=== PATIENT | male | born 1960 | race Caucasian/White ===

== ENCOUNTER 2022-07-18 12:43 | Emergency (ER) | payer OTHER, SELFPAY ==
[2022-07-18 12:57] VITALS: BP 158/78; PULSE 89; RESP 18; TEMP 35.9; O2SAT 98; BMI 23.2
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
--- NOTE | 2022-07-18 13:23 | CRLHL7_ITS ---
For Patients: As a result of the Century Cures Act, medical imaging exams and procedure reports are released immediately into your electronic medical record. You may view this report before your referring provider. If you have questions, please contact your health care provider. Indication: Back Pain Comparison: None available. Technique: AP, lateral, and sunrise views thoracic spine were obtained. Findings: The thoracic vertebral body heights are grossly maintained with somewhat age-indeterminate mild superior endplate deformities of superior mid thoracic vertebral bodies. There is mild straightening of the normal thoracic kyphosis without evidence of significant spondylolisthesis. There is mild dextroscoliotic deformity of the AP alignment. The soft tissues are unremarkable. Impression: Degenerative changes of the thoracic spine with somewhat chronic and/or age indeterminate minimal endplate deformities of mid thoracic vertebral bodies. If there remains persisting clinical concern follow-up with MRI for improved characterization of subtle marrow edema. No evidence of large, displaced fracture. Dictated by Jake Estrada MD @ 07/18/2022 1:58:49 PM (Electronically Signed)
--- NOTE | 2022-07-18 13:23 | CRLHL7_ITS ---
For Patients: As a result of the Century Cures Act, medical imaging exams and procedure reports are released immediately into your electronic medical record. You may view this report before your referring provider. If you have questions, please contact your health care provider. Indication: Back pain Comparison: None available. Technique: PA and lateral views of the chest Findings: There is hyperinflation and chronic interstitial change without dense consolidation, effusion or pneumothorax. There is mild pulmonary vascular congestion. The cardiomediastinal silhouette is within normal limits. The bony thorax is grossly intact. Impression: Hyperinflation and chronic interstitial changes with mild pulmonary vascular congestion. Dictated by Jake Estrada MD @ 07/18/2022 2:07:21 PM (Electronically Signed)
--- OUTSIDE RECORDS SUMMARY | 2022-07-18 13:36 | XMS_ITS | Clinical Summary ---
:1960 Author Organization [employer] [facility] [place] [address] Care Team Providers Name Role Phone Pcp, No Primary Care Provider Unavailable Allergies No known active allergies Medications No known medications Active Problems Problem Noted Date Elevated blood pressure 09/22/2014 Immunizations Name Administration Dates Next Due Td (Age >=7 Years) 04/28/2003 Tdap 02/12/2011 Family History Medical History Relation Name Comments [facility] Mother Relation Name Status Comments Mother Social History Tobacco Use Types Packs/Day Years Used Date Never Smoker Cigars Smokeless Tobacco: Current User Chew Tobacco Cessation: Ready to Quit: No; Co unseling Given: Yes Comments: Patient declined information Alcohol Use Standard Drinks/Week Comments No 0 (1 standard drink = 0.6 oz pure alcoho l) Seldom Alcohol Habits Answer Date Recorded How often do you have a drink containing alcohol? Not asked How many drinks containing alcohol do you have on a typical Not asked day when you are drinking? How often do you have six or more drinks on one occasion? No t asked Comment: Seldom 03/27/2015 Sex Assigned at Date Recorded Not on file Obstetrics History Last Filed Vital Signs Vital Sign Reading Time Taken Comments Blood Pressure 160/84 03/27/2015 3:18 PM CDT Pulse 80 03/27/2015 3:18 PM CDT Temperature 36.7 ??C (98 ??F) 03/27/2015 3:01 PM CDT Respiratory Rate - - Oxygen Saturation - - Inhaled Oxygen Concentration - - Weight 76.9 kg (169 lb 9.6 oz) 03/27/2015 3:01 PM CDT Height - - Body Mass Index - - Plan of Treatment Health Maintenance Due Date Last Done Comments COVID-19 vaccine series (#1) 06/21/1960 Depression screening for age 12+ 1971 BMI (ht and wt on same day) for age 18+ 12/20/1977 Hepatitis C screening for age 18-79 12/20/1977 Colonoscopy through age 75 12/20/2004 Lipids for age 45-75 12/20/2004 Zoster (shingles) series for age 50+ (1 of 12/20/2009 2) Tetanus booster 02/12/2021 02/12/2011, 04/28/2003 Influenza for age 50-64 05/08/2022 Tdap Completed 02/12/2011 Results Not on filefrom Last 3 Months Care Teams Director Wholesale Relationship Specialty Start Date End Date Pcp, No PCP - General 12/19/16 .
[2022-07-18 15:18] VITALS: BP 158/78; PULSE 89; RESP 18; TEMP 35.9
== END 2022-07-18 15:19 | disposition home or self-care (01) ==
PROVIDERS: Emergency Provider Family Medicine
DX: M54.6 Pain in thoracic spine (principal)
CPT/HCPCS: 71046; 72070; 99283

== ENCOUNTER 2022-07-21 18:13 | Outpatient (CLI) | payer OTHER, SELFPAY ==
--- OUTSIDE RECORDS SUMMARY | 2022-07-21 18:16 | XMS_ITS | Clinical Summary ---
:1960 Author Organization [employer] [facility] [place] [address] Care Team Providers Name Role Phone Pcp, No Primary Care Provider Unavailable Allergies No known active allergies Medications No known medications Active Problems Problem Noted Date Elevated blood pressure 09/22/2014 Immunizations Name Administration Dates Next Due Td (Age >=7 Years) 04/28/2003 Tdap 02/12/2011 Family History Medical History Relation Name Comments [facility] Mother Relation Name Status Comments Mother Social [...] on filefrom Last 3 Months Care Teams Main [employer] Relationship Specialty Start Date End Date Pcp, No PCP - General 12/19/16 .
[2022-07-21 21:29] LABS: Albumin* 4.7 g/dL (3.3-5.0); Chloride* 95 mmol/L (96-114); Sodium* 130 mmol/L (135-149)
[2022-07-21 21:30] LABS: Potassium* 5.1 mmol/L (3.6-5.1)
[2022-07-21 21:32] LABS: Carbon Dioxide* 20 mmol/L (20-32); Creatinine* 10.8 mg/dL (0.5-1.5); Estimated Glomerular Filt Rate 5 ml/min
[2022-07-21 21:33] LABS: Alanine Aminotransferase* 24 U/L (4-50); Alkaline Phosphatase* 108 U/L (40-150); Aspartate Amino Transferase* 19 U/L (12-35); Blood Urea Nitrogen* 73 mg/dL (7-30); Calcium* 11.6 mg/dL (8.4-10.6); Glucose* 103 mg/dL (60-115); Total Protein* 8.2 g/dL (6.0-8.3)
[2022-07-21 21:36] LABS: C Reactive Protein* < 0.5 mg/dL (0.5-1.0)
== END 2022-07-21 18:14 | disposition home or self-care (01) ==
PROVIDERS: Visit Provider Family Medicine
DX: Z00.00 Encounter for general adult medical examination without abnormal findings (principal); M54.6 Pain in thoracic spine; M79.10 Myalgia, unspecified site
CPT/HCPCS: 80053; 86140

== ENCOUNTER 2022-07-21 19:17 | Inpatient (IN) | payer OTHER, SELFPAY ==
[2022-07-21 19:42] VITALS: BP 193/98; PULSE 105; RESP 18; TEMP 36.6; O2SAT 99; BMI 23.5
[2022-07-21 20:53] VITALS: O2SAT 96
--- OUTSIDE RECORDS SUMMARY | 2022-07-21 20:55 | XMS_ITS | Clinical Summary ---
:1960 Author Organization [employer] [facility] [place] [address] Care Team Providers Name Role Phone Pcp, No Primary Care Provider Unavailable Allergies No known active allergies Medications No known medications Active Problems Problem Noted Date Elevated blood pressure 09/22/2014 Immunizations Name Administration Dates Next Due Td (Age >=7 Years) 04/28/2003 Tdap 02/12/2011 Family History Medical History Relation Name Comments [facility] Mother Relation Name Status Comments Mother [...] on filefrom Last 3 Months Care Teams Metabolic Specialist Relationship Specialty Start Date End Date Pcp, No PCP - General 12/19/16 .
[2022-07-21 21:06] VITALS: BP 178/104; RESP 16; O2SAT 96
[2022-07-21 21:17] LABS: Basophils Absolute Auto 0.03 K/uL (0.00-0.30); Basophils Percent Auto 0.5 % (0.0-3.0); Eosinophils Absolute Auto 0.07 K/uL (0.00-0.50); Eosinophils Percent Auto 1.2 % (0.0-7.0); Hematocrit 21.2 % (37.0-53.0); Immature Granulocytes Abs Auto 0.01 K/uL (0.00-0.30); Immature Granulocytes Pct Auto 0.2 %; Lymphocytes Percent Auto 12.7 % (20-44); Mean Corpuscular HGB Conc 35 gm/dL (32-36); Mean Corpuscular Hemoglobin 35 pg (26-34); Mean Corpuscular Volume 100 fL (80-100); Monocytes Percent Auto 7.5 % (0.0-11.0); Neutrophils Percent Auto 77.9 % (42.0-72.0); Platelet Count* 223 K/uL (140-440); RDW Coefficient of Variation % 12.3 % (11.5-15.5); Red Blood Count 2.12 m/uL (4.30-5.90); White Blood Count* 5.74 K/uL (4.50-11.00)
[2022-07-21 21:26] LABS: Hemoglobin* 7.5 gm/dL (13.5-17.5); Slide Review Reflex No
--- NOTE | 2022-07-21 21:26 | ED.NURSE ---
Call from lab for critical result: hemoglobin 7.5. RN and MD updated.
[2022-07-21 22:00] VITALS: BP 162/96; PULSE 86; RESP 16; TEMP 36.6; O2SAT 95
[2022-07-21] MEDS: 0.9 % SODIUM CHLORIDE 1000 ml 1,000 ML IV (22:30)
--- NOTE | 2022-07-21 22:37 | CRLHL7_ITS ---
For Patients: As a result of the 21st Century Cures Act, medical imaging exams and procedure reports are released immediately into your electronic medical record. You may view this report before your referring provider. If you have questions, please contact your health care provider. INDICATION: Low thoracic back pain. Severe anemia. Renal failure. COMPARISON: None available. TECHNIQUE: CT examination of the abdomen and pelvis was performed without contrast enhancement using 3 mm thick axial sections from the lung bases through the pubic symphysis. Oral contrast was not administered. Please note that all CT scans at this facility use dose modulation, iterative reconstruction, and/or weight-based dosing when appropriate to reduce radiation dose to as low as reasonably achievable. FINDINGS: In the abdomen, the unenhanced liver, pancreas, and adrenals are normal in appearance. The spleen is top-normal in size, measuring 12.2 centimeters in length, with no sign of any mass. The unenhanced kidneys are normal in appearance. The gallbladder is normal in appearance. The abdominal aorta is normal in caliber with no sign of dilatation. There is no sign of retroperitoneal mass or adenopathy. There is mild thickening of the wall of the inferior esophagus, consistent with reflux esophagitis. The stomach, loops of small bowel, and colon in the abdomen are normal in appearance. In the pelvis, the appendix is normal in appearance with no sign of inflammatory process. The loops of small bowel, colon, and rectum in the pelvis are normal in appearance. The prostate is normal in appearance. The urinary bladder is normal in appearance. There is no sign of pelvic or inguinal mass or adenopathy. There is no sign of free air or free fluid in the abdomen or pelvis. There is minor linear atelectasis in the posterior right lung base. The lung bases are otherwise clear. There are multiple lucent lesions scattered throughout the entire visualized spine, pelvis, and hips. The largest lesion is in the right iliac wing superior to the acetabulum, measuring 4.3 by 2.8 centimeters. The largest lesion in the spine is in the right L2 vertebral body, extending from the superior to the inferior endplate. The findings are that of extensive metastatic disease. There is an overall coarse, mildly sclerotic appearance to the osseous structures otherwise, suggesting blastic metastatic disease. The appearance is not suggestive of renal osteodystrophy. There is mild anterior wedging of T12 and L1 with moderate endplate depressions, mild compression fractures versus Scheuermann`s disease. IMPRESSION: Numerous lytic lesions distributed throughout the entire visualized spine and pelvis, consistent with metastatic disease. Diffuse heterogeneous appearance of sclerosis elsewhere, also consistent with metastatic disease. Mild T12 and L1 compression fractures, probably Scheuermann`s disease, although cannot exclude compression fractures. No evidence of primary malignancy in the abdomen or pelvis. CT of the abdomen shows thickening of the wall of the inferior thoracic esophagus consistent with reflux esophagitis. Spleen top-normal in size. CT of the pelvis shows no additional abnormality. Please note that all CT scans at this facility use dose modulation, iterative reconstruction, and/or weight-based dosing when appropriate to reduce radiation dose to as low as reasonably achievable. Dictated by Archie Bazan MD @ 07/21/2022 11:56:08 PM (Electronically Signed)
[2022-07-21 23:03] LABS: HCO3 VBG 22 mmol/L (21-28); PCO2 VBG 40 mmHG (40-50); PO2 VBG 24.4 mmHG (25-47); pH VBG 7.352 (7.32-7.43)
[2022-07-21 23:10] LABS: PCR FLU A Negative PCR FLU A (Negative); PCR FLU B Negative PCR FLU B (Negative)
--- NOTE | 2022-07-21 23:30 | ED_ITS ---
HPI - General Adult General Chief complaint: Back Injury/Pain Stated complaint: Sent from [place] Time Seen by Provider: 07/21/22 20:08 History of Present Illness HPI narrative: 61-year-old man presenting to the emergency department accompanied by his eldest daughter with complaint of back pain. Was seen earlier this evening in Urgent Care noted to be hypertensive and and anemic with a hemoglobin 8. Was therefore sent to the emergency department for further evaluation. Has been seen over the last nearly 2 weeks with concern of back pain noting pain in the low thoracic spine and left shoulder area the. Daughter describes left shoulder pain as literally taking his breath away a though he is demonstrating here pretty good movement without discomfort. He happened to have a fall of sorts at work I believe early June around June 09. Admits that pain seemed to have s tarted more after that time increasing maybe over that next week. He has not had any fever he denies nausea or indigestion although does heartburn which rears here in the emergency department at 1 point. No abdominal pain otherwise. No dysuria frequency or urgency. Gets up at night once to urinate perhaps maybe twice. It feels like his bladder does empty. Pain in his back is demonstrated in the low thoracic spine. It is not necessarily reproducible. They are here requesting an MRI as this has been suggested that might be necessary. Does not have radicular pain around to his abdomen and none into his legs or arms. He is not lightheaded. He is not short of breath. He has been prescribed recently meloxicam tramadol and cyclobenzaprine. He has been taking the cyclobenzaprine maybe twice a day as well as some tramadol last taken yesterday evening. It is not clear to me how long is taking the meloxicam but this again is a recent prescription. Lisinopril was written for today in clinic less Urgent Care but ultimately directed to the emergency department. He has not taken that yet. He has been sleeping well. Noted any hematochezia or melena. Again no hematuria. He does chew but has never been a smoker. Does drink alcohol up until about a month ago 6-8 beers a day. Apparently has cut bike quite a bit. Yesterday only had 1 beer; sounds like relatively minimal over the last some weeks. No cough or cold symptoms. No shakes. No nausea. Has not been seen in healthcare other than the dentist over the last 25 years. He says that he is generally hypertensive when he is seen in clinical settings. Related Data Home Medications Medication Instructions Recorded Confirmed meloxicam 7.5 mg tablet 7.5 - 15 mg PO DAILY 07/21/22 07/22/22 lisinopril 10 mg tablet 10 mg PO DAILY 07/22/22 07/22/22 Previous Rx's Medication Instructions Recorded cyclobenzaprine 10 mg tablet 10 mg PO BID PRN muscle spasm #60 07/15/22 tabs tramadol 50 mg tablet 50 mg PO Q6H PRN pain #10 tabs 07/18/22 Allergies Allergy/AdvReac Type Severity Reaction Status Date / Time No Known Drug Allergies Allergy Verified 07/21/22 18:00 Review of Systems Status of ROS: Reports: 10 or more systems reviewed and unremarkable except as noted in History and below [facility] Medical History (Updated 07/22/22 @ 11:31 by Juma Macias MD) Anemia Bony metastasis Hypercalcemia Hyperuricemia Metabolic acidosis Stage 5 chronic kidney disease Family History (Updated 07/22/22 @ 00:22 by Juma Macias MD) Father COPD (chronic obstructive pulmonary disease) Sister Lung cancer Breast cancer Social History (Updated 07/22/22 @ 00:24 by Juma Macias MD) Narrative: 61-year-old male lives with his daughter and her son in [place]. He is accompanied with his other daughter to the emergency room today. 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 He does not smoke. He chews tobacco. He had drinks 1-2 beers per day chronically but in the last month he has been drinking a lot less. No recreational drug use. His 2 daughters are healthcare power of metal building assembler. His code status is full. Smoking Status: Former smoker What tobacco products do you use: cigars Do you use any of these nicotine containing products: Smokeless Tobacco Nicotine containing products detail: chewing tobacco How often do you have a drink containing alcohol: 4 or more times a week Alcohol type: beer How many standard drinks containing alcohol do you have on a typical day: 1 or 2 How often do you have six or more drinks on one occasion: Monthly AUDIT-C Alcohol total score: 6 Non-prescribed substance use: denies use Caffeine: Yes (soda) service: No Exam Narrative: Exam Narrative: Mr. Broderick is pleasant in no particular distress. Actually appears to be transitioning without difficulty. Appears of good strength maneuvering himself about the bed. He is actually moving all extremities without difficulty. Is well-perfused. No edema. Does not appear to be any particular pain. Neck is supple. Head is atraumatic. Oropharynx is moist, edentulous upper. Cranial nerves 2-12 are intact. Lungs are clear Abdomen is flat soft and nontender. No masses are appreciated. No HSM appreciated. Examination of the back is without reproducible tenderness. No deformity. Has no tenderness about the shoulder either. No erythema or swelling about the left shoulder. Did do a rectal exam showed small amount of brown stool which tested negative guaiac. Const: Vital Signs, click to edit/add: Vital Signs - 24 hr 07/21/22 19:42 07/21/22 20:53 07/21/22 21:06 Temperature 97.9 F Pulse Rate [Right Pulse Oximeter] 105 H Respiratory Rate 18 16 Blood Pressure [Ri ght Upper Arm] 193/98 H 178/104 H Pulse Oximetry 99 96 96 Oxygen Delivery Me thod Room Air Room Air 07/21/22 22:00 Temperature 97.9 F Pulse Rate [Right Pulse Oximeter] 86 Respiratory Rate 16 Blood Pressure [Ri ght Upper Arm] 162/96 H Pulse Oximetry 95 Oxygen Delivery Me thod Room Air Documenting provider has reviewed patient's vital signs: yes Course Course Hospital Course: Waiting for labs to arrive from that clinic. Will redraw though for type and and screen and CBC to obtain differential. Reevaluation(s) Reevaluation #1: remains generally well. no complaints. I have been in communication with our hospitalist regarding potential admission as labs return in particular showing unexplained renal failure. have been looking for regional beds; none available. Consultations Consultation #1: discussed case with our hospitalist Vital Signs Vital signs: Initial Vital Signs Temperature 97.9 F 07/21/22 19:42 Temperature Source Temporal Artery Scan 07/21/22 19:42 Pulse Rate 105 H 07/21/22 19:42 Respiratory Rate 18 07/21/22 19:42 Blood Pressure 193/98 H 07/21/22 19:42 Blood Pressure Mean 129 07/21/22 19:42 Blood Pressure Position Sitting 07/21/22 19:42 Pulse Oximetry 99 07/21/22 19:42 Oxygen Delivery Method 07/21/22 19:42 Vital Signs Temperature 97.9 F 07/21/22 19:42 Pulse Rate 105 H 07/21/22 19:42 Respiratory Rate 18 07/21/22 19:42 Blood Pressure 193/98 H 07/21/22 19:42 Pulse Oximetry 99 07/21/22 19:42 Oxygen Delivery Method 07/21/22 19:42 Temperature 97.1 F L 07/23/22 07:30 Pulse Rate 70 07/23/22 07:30 Respiratory Rate 16 07/23/22 07:30 Blood Pressure 131/86 07/23/22 07:30 Pulse Oximetry 96 07/23/22 07:30 Oxygen Delivery Method 07/23/22 07:30 Medical Decision Making MDM Narrative Medical decision making narrative: low hgb but with very elevated creatinine. this may be reason for relatively asymptomatic anemia. confirmed lack of LUTS. bladder scan unremarkable. CT abd/pelvis requested. hydrating with NS [address] by my read bladder containing 250-300ml, not enough to explain renal failure. and making urine. by my read numerous lytic lesions throughout the spine and hips. multple myeloma? overread radiology----- IMPRESSION: Numerous lytic lesions distributed throughout the entire visualized spine and pelvis, consistent with metastatic disease. Diffuse heterogeneous appearance of sclerosis elsewhere, also consistent with metastatic disease. Mild T12 and L1 compression fractures, probably Scheuermann`s disease, although cannot exclude compression fractures. No evidence of primary malignancy in the abdomen or pelvis. CT of the abdomen shows thickening of the wall of the inferior thoracic esophagus consistent with reflux esophagitis. Spleen top-normal in size. CT of the pelvis shows no additional abnormality. Lab Data Labs: Lab Results 07/21/22 07/21/22 07/21/22 Range/Units 21:10 21:10 21:10 WBC 5.74 (4.50-11.00) K/uL RBC 2.12 L (4.30-5.90) m/uL Hgb 7.5 L* (13.5-17.5) gm/dL Hct 21.2 L (37.0-53.0) % MCV 100 (80-100) fL MCH 35 H (26-34) pg MCHC 35 (32-36) gm/dL RDW Coeff of Sharon 12.3 (11.5-15.5) % Plt Count 223 (140-440) K/uL Neut % (Auto) 77.9 H (42.0-72.0) % Lymph % (Auto) 12.7 L (20-44) % [place] % (Auto) 7.5 (0.0-11.0) % Eos % (Auto) 1.2 (0.0-7.0) % Baso % (Auto) 0.5 (0.0-3.0) % Neut # (Auto) 4.50 (1.7-7.0) K/uL Lymph # (Auto) 0.70 L (0.90-2.90) K/uL [place] # (Auto) 0.40 (0.00-0.90) K/UL Eos # (Auto) 0.07 (0.00-0.50) K/uL Baso # (Auto) 0.03 (0.00-0.30) K/uL Abs Immat Gran (auto) 0.01 (0.00-0.30) K/uL Imm/Tot Granulo (auto) 0.2 % VBG pH (7.32-7.43) VBG pCO2 (40-50) mmHG VBG pO2 (25-47) mmHG VBG HCO3 (21-28) mmol/L Phosphorus 7.4 H* (2.5-4.5) mg/dL Lactate Dehydrogenase 198 (120-246) U/L PSA Screen 0.46 (0.10-4.00) ng/mL Ur Immunofixation Intrp SARS-CoV-2 (PCR) (Negative) Influenza Type A (PCR) (Negative) Influenza Type B (PCR) (Negative) Blood Type O Positive Antibody Screen NEGATIVE Crossmatch ([facility]) See Detail 07/21/22 07/21/22 07/21/22 Range/Units 22:18 22:19 23:00 WBC (4.50-11.00) K/uL RBC (4.30-5.90) m/uL Hgb (13.5-17.5) gm/dL Hct (37.0-53.0) % MCV (80-100) fL MCH (26-34) pg MCHC (32-36) gm/dL RDW Coeff of Sharon (11.5-15.5) % Plt Count (140-440) K/uL Neut % (Auto) (42.0-72.0) % Lymph % (Auto) (20-44) % [place] % (Auto) (0.0-11.0) % Eos % (Auto) (0.0-7.0) % Baso % (Auto) (0.0-3.0) % Neut # (Auto) (1.7-7.0) K/uL Lymph # (Auto) (0.90-2.90) K/uL [place] # (Auto) (0.00-0.90) K/UL Eos # (Auto) (0.00-0.50) K/uL Baso # (Auto) (0.00-0.30) K/uL Abs Immat Gran (auto) (0.00-0.30) K/uL Imm/Tot Granulo (auto) % VBG pH 7.352 (7.32-7.43) VBG pCO2 40 (40-50) mmHG VBG pO2 24.4 L (25-47) mmHG VBG HCO3 22 (21-28) mmol/L Phosphorus (2.5-4.5) mg/dL Lactate Dehydrogenase (120-246) U/L PSA Screen (0.10-4.00) ng/mL Ur Immunofixation Intrp Cancelled SARS-CoV-2 (PCR) Negative SARS-CoV-2 (Negative) Influenza Type A (PCR) Negative PCR FLU A (Negative) Influenza Type B (PCR) Negative PCR FLU B (Negative) Blood Type Antibody Screen Crossmatch ([facility]) Discharge Plan Discharge Clinical Impression: Anemia, Renal failure, Malignancy Patient Disposition: Admitted As Inpatient
[2022-07-21 23:55] LABS: SARS PCR* Negative SARS-CoV-2 (Negative)
[2022-07-22] VITALS (7 sets, daily range): BP systolic 124–188; BP diastolic 72–99; PULSE 77–87; RESP 16–18; TEMP 36.2–37.4; O2SAT 94–100; BMI 23.7
--- NOTE | 2022-07-22 00:14 | PM.IMHP1 ---
Hospitalist- H&P: HPI History of Present Illness Date Seen: 07/21/22 Chief complaint: Sent from [place] Narrative: Rickie Broderick is a 61 year old male presents to the emergency room with low back pain anemia and kidney failure. Patient reports that starting about 2-3 weeks ago he had left shoulder pain and low back pain. He attributed this to an injury that he had about 5 weeks ago when he fell off a gate at work. At that time he was not aware of any injury and did not really have pain for 2-3 weeks. 6 days ago he was seen in clinic and given cyclobenzaprine and meloxicam for his shoulder and back pain. His shoulder pain is better but his back pain persists. He is seen in the emergency room 3 days ago where he had radiographs of his spine and chest. He was seen in clinic a day and referred to the emergency room when blood tests showed anemia and elevated creatinine. Patient reports that he does not regularly get medical care. He does not believe he seen a doctor in 25 years. He has been told at the dentist's office that his blood pressure is elevated but then he sits quietly for few minutes and it seems to get better by his report. He has no medical diagnoses. No previous surgeries. Patient reports no other symptoms of illness. No other bony pain. No fever, cough, shortness of breath, chest pain, abdominal pain, nausea, vomiting, diarrhea, constipation, melena, bloody stools, urinary problems, edema. Review of Systems Narrative: Review of systems is negative except as noted above [facility] Medical History (Updated 07/22/22 @ 00:27 by Juma Macias MD) Anemia Bony metastasis Hypercalcemia Stage 5 chronic kidney disease Family History (Updated 07/22/22 @ 00:22 by Juma Macias MD) Father COPD (chronic obstructive pulmonary disease) Sister Lung cancer Breast cancer Social History (Updated 07/22/22 @ 00:24 by Juma Macias MD) Narrative: 61-year-old male lives with his daughter and her son in [place]. He is accompanied with his other daughter to the emergency room today. 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 He does not smoke. He chews tobacco. He had drinks 1-2 beers per day chronically but in the last month he has been drinking a lot less. No recreational drug use. His 2 daughters are healthcare power of sealing machine operator. His code status is full. Smoking Status: Smoker, status unknown Non-prescribed substance use: denies use Meds Home Medications and Allergies Home Medications Medication Instructions Recorded Confirmed Type meloxicam 7.5 mg tablet 7.5 - 15 mg PO DAILY 07/21/22 History Allergies Allergy/AdvReac Type Severity Reaction Status Date / Time No Known Drug Allergies Allergy Verified 07/21/22 18:00 Exam Narrative: Exam Narrative: He is alert and appears in no distress. He gives his own history. Speech is normal. Eyes are normal. Oropharynx dry mucous membranes. No facial asymmetry. Neck is supple without mass or adenopathy. Respirations are clear to auscultation without wheezing rales or rhonchi. Cardiovascular: S1, S2, regular rate and rhythm. No murmur gallop or rub. Abdomen: Bowel sounds active. Abdomen is soft without tenderness or mass. He has no edema. Intact peripheral pulses. Intact sensation in his feet. He moves all 4 extremities well. Const: Vital Signs, click to edit/add: Vital Signs - 24 hr 07/21/22 19:42 07/21/22 20:53 07/21/22 21:06 Temperature 97.9 F Pulse Rate [Right Pulse Oximeter] 105 H Respiratory Rate 18 16 Blood Pressure [Ri ght Upper Arm] 193/98 H 178/104 H Pulse Oximetry 99 96 96 Oxygen Delivery Me thod Room Air Room Air 07/21/22 22:00 Temperature 97.9 F Pulse Rate [Right Pulse Oximeter] 86 Respiratory Rate 16 Blood Pressure [Ri ght Upper Arm] 162/96 H Pulse Oximetry 95 Oxygen Delivery Me thod Room Air Documenting provider has reviewed patient's vital signs: yes Hospitalist - H&P: Result Labs Labs: Short CBC 07/21/22 Range/Units 21:10 WBC 5.74 (4.50-11.00) K/uL Hgb 7.5 L* (13.5-17.5) gm/dL Hct 21.2 L (37.0-53.0) % Plt Count 223 (140-440) K/uL Assessment and Plan Assessment and plan (1) Bony metastasis: Problem comment: Diffuse lytic bone lesions. Pending diagnosis and treatment plan Status: Acute (2) Anemia: Problem comment: Likely due to diffuse bony lesions and chronic kidney disease Status: Acute (3) Stage 5 chronic kidney disease: Problem comment: Probably related to bony lesions. Status: Acute (4) Hypercalcemia: Problem comment: Due to lytic lesions in the bone and chronic kidney disease Status: Acute Plan Will admit to the hospital for management of hypercalcemia, anemia, states stage 5 kidney disease and initial attempts at diagnosis of bony lesions. Attempts to transfer tonight for specialty consultation including Nephrology and Oncology are unsuccessful due to no available beds in tertiary care centers. Total time spent today is 85 minutes, 50 minutes in coordination of care and discussing with patient, daughter and other providers ongoing evaluation management.
[2022-07-22 00:25] LABS: PSA Screen* 0.46 ng/mL (0.10-4.00)
[2022-07-22 00:49] LABS: Phosphorus* 7.4 mg/dL (2.5-4.5)
[2022-07-22 01:27] LABS: Lactate Dehydrogenase* 198 U/L (120-246)
[2022-07-22] MEDS: 0.9 % SODIUM CHLORIDE 1000 ml 1,000 ML 200 ML IV ×2 (01:32→06:16)
[2022-07-22] MEDS: OXYCODONE 5 MG TABLET PO ×4 (03:03→23:38)
--- NOTE | 2022-07-22 05:17 | PC.NURSE ---
Pt arrived to floor with daughter approx 0030, admission completed. Pt slept on and off during the night, did request prn pain med x1 for 7/10 back pain. denied sob or difficulty breathing throughout night.
[2022-07-22 06:43] LABS: Basophils Absolute Auto 0.03 K/uL (0.00-0.30); Basophils Percent Auto 0.6 % (0.0-3.0); Eosinophils Absolute Auto 0.16 K/uL (0.00-0.50); Eosinophils Percent Auto 2.9 % (0.0-7.0); Hematocrit 18.1 % (37.0-53.0); Immature Granulocytes Abs Auto 0.02 K/uL (0.00-0.30); Immature Granulocytes Pct Auto 0.4 %; Lymphocytes Percent Auto 17.6 % (20-44); Mean Corpuscular HGB Conc 36 gm/dL (32-36); Mean Corpuscular Hemoglobin 36 pg (26-34); Mean Corpuscular Volume 100 fL (80-100); Neutrophils Absolute Auto 3.89 K/uL (1.7-7.0); Neutrophils Percent Auto 71.5 % (42.0-72.0); Platelet Count* 212 K/uL (140-440); RDW Coefficient of Variation % 12.2 % (11.5-15.5); Red Blood Count 1.81 m/uL (4.30-5.90); White Blood Count* 5.44 K/uL (4.50-11.00)
[2022-07-22 06:58] LABS: Chloride* 103 mmol/L (96-114); Hemoglobin* 6.5 gm/dL (13.5-17.5); Slide Review Reflex No; Sodium* 132 mmol/L (135-149)
[2022-07-22 07:01] LABS: Carbon Dioxide* 19 mmol/L (20-32); Creatinine* 10.3 mg/dL (0.5-1.5); Est. Creatinine Clearance* 7.44; Estimated Glomerular Filt Rate 5 ml/min
[2022-07-22 07:02] LABS: Blood Urea Nitrogen* 67 mg/dL (7-30); Calcium* 10.3 mg/dL (8.4-10.6); Glucose* 91 mg/dL (60-115)
[2022-07-22] MEDS: ACETAMINOPHEN 325 MG TABLET 650 MG PO ×2 (09:17→23:37)
[2022-07-22 11:00] LABS: Uric Acid* 9.9 mg/dL (2.2-8.4)
--- NOTE | 2022-07-22 11:18 | PM.IMPN1 ---
Progress Note: A&P Assessment and plan (1) Bony metastasis: Problem details: Diffuse lytic bone lesions. Labs for multiple myeloma pending. Planning bone marrow biopsy with pathology and radiology to perform with assistance of COLLAR FOLDER OPERATOR Pain medications as needed Status: Acute (2) Anemia: Problem details: Likely due to diffuse bony lesions and chronic kidney disease. Transfused today. Status: Acute (3) Stage 5 chronic kidney disease: Problem details: Probably related to bony lesions. Status: Acute (4) Hypercalcemia: Problem details: Due to lytic lesions in the bone and chronic kidney disease. Hydration Status: Acute (5) Hyperuricemia: Problem details: Likely due to metastatic disease. Start renal dose allopurinol Status: Acute (6) Metabolic acidosis: Problem details: Half normal saline with 75 mEq sodium bicarb and a L. furosemide to avoid volume overload Status: Acute Time Spent With Patient Total time spent: Total time spent today is 120 minutes, 100 minutes in coordination of care and discussing with other providers patient and family ongoing evaluation management of metastatic disease and renal failure. Also spoke with Oncology, Nephrology and tertiary care hospitals for transfer options. No beds available. Subjective Date Seen: 07/22/22 Interval history: Patient seen in followup of metastatic bone disease with renal failure and anemia. Patient had some back pain during the night but otherwise feels fine. His daughter thinks his mentation is better today. He has no shortness of breath. Exam Narrative: Exam Narrative: He is alert and appears in no distress. He gives his own history. He is pleasant cooperative. Quite stoic. Seen with his 2 daughters and son-in-law today. Respirations are clear to auscultation. Cardiovascular: S1, S2, regular rate and rhythm. Abdomen: Bowel sounds active. Abdomen is soft without tenderness or mass. Const: Vital Signs, click to edit/add: Vital Signs - 24 hr 07/21/22 19:42 07/21/22 20:53 07/21/22 21:06 Temperature 97.9 F Pulse Rate [Right Pulse Oximeter] 105 H Respiratory Rate 18 16 Blood Pressure [Le ft Arm] Blood Pressure [Ri ght Arm] Blood Pressure [Ri ght Upper Arm] 193/98 H 178/104 H Pulse Oximetry 99 96 96 Oxygen Delivery Me thod Room Air Room Air 07/21/22 22:00 07/22/22 00:41 07/22/22 00:41 Temperature 97.9 F 97.9 F Pulse Rate [Right Pulse Oximeter] 86 Respiratory Rate 16 16 16 Blood Pressure [Le ft Arm] 188/99 H Blood Pressure [Ri ght Arm] Blood Pressure [Ri ght Upper Arm] 162/96 H Pulse Oximetry 95 100 95 Oxygen Delivery Me thod Room Air Room Air Room Air 07/22/22 03:00 Temperature Pulse Rate [Right Pulse Oximeter] Respiratory Rate 16 Blood Pressure [Le ft Arm] Blood Pressure [Ri ght Arm] 124/72 Blood Pressure [Ri ght Upper Arm] Pulse Oximetry 99 Oxygen Delivery Me thod Room Air Documenting provider has reviewed patient's vital signs: yes Labs Labs: Laboratory Results - last 24 hr 07/21/22 07/21/22 07/21/22 21:10 21:10 21:10 WBC 5.74 RBC 2.12 L Hgb 7.5 L* Hct 21.2 L MCV 100 MCH 35 H MCHC 35 RDW Coeff of Sharon 12.3 Plt Count 223 Neut % (Auto) 77.9 H Lymph % (Auto) 12.7 L [place] % (Auto) 7.5 Eos % (Auto) 1.2 Baso % (Auto) 0.5 Neut # (Auto) 4.50 Lymph # (Auto) 0.70 L [place] # (Auto) 0.40 Eos # (Auto) 0.07 Baso # (Auto) 0.03 Abs Immat Gran (auto) 0.01 Imm/Tot Granulo (auto) 0.2 VBG pH VBG pCO2 VBG pO2 VBG HCO3 Sodium Potassium Chloride Carbon Dioxide BUN Creatinine Estimated Creat Clear Estimated GFR Glucose Uric Acid Calcium Phosphorus 7.4 H* Lactate Dehydrogenase 198 PSA Screen 0.46 SARS-CoV-2 (PCR) Influenza Type A (PCR) Influenza Type B (PCR) Blood Type O Positive Antibody Screen NEGATIVE Crossmatch ([facility]G) See Detail 07/21/22 07/21/22 07/22/22 22:18 23:00 06:15 WBC 5.44 RBC 1.81 L Hgb 6.5 L* Hct 18.1 L MCV 100 MCH 36 H MCHC 36 RDW Coeff of Sharon 12.2 Plt Count 212 Neut % (Auto) 71.5 Lymph % (Auto) 17.6 L [place] % (Auto) 7.0 Eos % (Auto) 2.9 Baso % (Auto) 0.6 Neut # (Auto) 3.89 Lymph # (Auto) 1.00 [place] # (Auto) 0.40 Eos # (Auto) 0.16 Baso # (Auto) 0.03 Abs Immat Gran (auto) 0.02 Imm/Tot Granulo (auto) 0.4 VBG pH 7.352 VBG pCO2 40 VBG pO2 24.4 L VBG HCO3 22 Sodium Potassium Chloride Carbon Dioxide BUN Creatinine Estimated Creat Clear Estimated GFR Glucose Uric Acid Calcium Phosphorus Lactate Dehydrogenase PSA Screen SARS-CoV-2 (PCR) Negative SARS-CoV-2 Influenza Type A (PCR) Negative PCR FLU A Influenza Type B (PCR) Negative PCR FLU B Blood Type Antibody Screen Crossmatch ([facility]) 07/22/22 06:15 WBC RBC Hgb Hct MCV MCH MCHC RDW Coeff of [place] Plt Count Neut % (Auto) Lymph % (Auto) [place] % (Auto) Eos % (Auto) Baso % (Auto) Neut # (Auto) Lymph # (Auto) [place] # (Auto) Eos # (Auto) Baso # (Auto) Abs Immat Gran (auto) Imm/Tot Granulo (auto) VBG pH VBG pCO2 VBG pO2 VBG HCO3 Sodium 132 L Potassium 5.0 Chloride 103 Carbon Dioxide 19 L BUN 67 H Creatinine 10.3 H Estimated Creat Clear 7.44 Estimated GFR 5 Glucose 91 Uric Acid 9.9 H Calcium 10.3 Phosphorus Lactate Dehydrogenase PSA Screen SARS-CoV-2 (PCR) Influenza Type A (PCR) Influenza Type B (PCR) Blood Type Antibody Screen Crossmatch ([facility])
[2022-07-22] MEDS: FUROSEMIDE 10 MG/ML inj 20 MG IVP ×2 (11:37→16:55)
[2022-07-22] MEDS: allopurinoL 100 MG TABLET 50 MG PO (11:38)
--- NOTE | 2022-07-22 15:17 | PC.NURSE ---
Addendum entered by Isa Agarwal RN 07/22/22 15:27: Dr. Macias aware of low HGB value, no orders for blood products on day shift. Original Note: Please see emar for medications given to Rickie on the day shift. Eval by myself and Dr. Macias. Pt rating his bony pain 4-5 out of 10, worsens with movement. Pain managed with prn tylenol alternating with 5 mg of oxycodone. UA collected and sent to lab. Pt's family present 2 dtrs and a son-in-law at bedside, they are very supportive & concerned. Teaching on new diagnosis, Sodium Bicarb in IV @ 200 cc/hr, Allopurinol 50 mg to decrease uric acid and IV Lasix. Pt cautioned to let RN know if he feels SOB, notices wheezing or chest pain d/to rapid rate of IVF. Bladder scan showed 2 mls after pt's void, Dr. Macias aware. Pt UAL, encouraged to express his emotions. Good appetite, no n/v or dysphagia with meds. Continue plan of care, report to Zena Lehman RN for evening shift.
[2022-07-22 18:50] LABS: PSA Diagnostic* 0.35 ng/mL (0.10-4.00)
[2022-07-22 20:35] LABS: Chloride* 104 mmol/L (96-114); Potassium* 4.5 mmol/L (3.6-5.1); Sodium* 136 mmol/L (135-149)
[2022-07-22 20:38] LABS: Blood Urea Nitrogen* 67 mg/dL (7-30); Carbon Dioxide* 24 mmol/L (20-32); Creatinine* 10.1 mg/dL (0.5-1.5); Est. Creatinine Clearance* 7.58; Estimated Glomerular Filt Rate 5 ml/min; Glucose* 110 mg/dL (60-115)
[2022-07-22 20:39] LABS: Calcium* 9.6 mg/dL (8.4-10.6)
--- NOTE | 2022-07-22 23:00 | PC.NURSE ---
Shift [id number]- Patient is pleasant and cooperative. Family at bedside and supportive. He denies pain, except maybe with movement, and denies need for pain medications throughout shift. He appears to nap on and off throughout much of the shift. He is up ad lor. Denies SOB, chest pain, lungs are clear.
[2022-07-23] VITALS (11 sets, daily range): BP systolic 127–168; BP diastolic 74–94; PULSE 68–87; RESP 16–18; TEMP 36.2–36.9; O2SAT 92–98
--- NOTE | 2022-07-23 06:39 | PC.NURSE ---
Shift note: Pt rates pain tolerable overnight, rested comfortably. Voiding adequately, independent in the room
[2022-07-23 07:19] LABS: Basophils Percent Auto 0.5 % (0.0-3.0); Eosinophils Percent Auto 4.7 % (0.0-7.0); Hematocrit 16.7 % (37.0-53.0); Lymphocytes Percent Auto 29.9 % (20-44); Mean Corpuscular HGB Conc 35 gm/dL (32-36); Mean Corpuscular Hemoglobin 36 pg (26-34); Mean Corpuscular Volume 101 fL (80-100); Monocytes Percent Auto 7.5 % (0.0-11.0); Neutrophils Percent Auto 57.4 % (42.0-72.0); Platelet Count* 203 K/uL (140-440); RDW Coefficient of Variation % 12.4 % (11.5-15.5); Red Blood Count 1.65 m/uL (4.30-5.90); White Blood Count* 4.25 K/uL (4.50-11.00)
[2022-07-23 07:25] LABS: Hemoglobin* 5.9 gm/dL (13.5-17.5)
[2022-07-23] MEDS: FUROSEMIDE 10 MG/ML inj 20 MG IVP ×2 (07:30→12:49)
[2022-07-23 07:33] LABS: Chloride* 105 mmol/L (96-114)
[2022-07-23 07:34] LABS: Potassium* 4.1 mmol/L (3.6-5.1); Sodium* 136 mmol/L (135-149)
[2022-07-23 07:36] LABS: Creatinine* 10.3 mg/dL (0.5-1.5); Est. Creatinine Clearance* 7.44; Estimated Glomerular Filt Rate 5 ml/min
[2022-07-23 07:37] LABS: Blood Urea Nitrogen* 68 mg/dL (7-30); Calcium* 9.4 mg/dL (8.4-10.6); Carbon Dioxide* 24 mmol/L (20-32); Glucose* 85 mg/dL (60-115)
[2022-07-23] MEDS: ACETAMINOPHEN 325 MG TABLET 650 MG PO (07:40)
[2022-07-23] MEDS: SENNOSIDES/DOCUSATE TABLET 1 TAB PO (07:40)
--- NOTE | 2022-07-23 11:43 | PM.IMPN1 ---
Progress Note: A&P Assessment and plan (1) Metabolic acidosis: Problem details: 200 cc/hr of 1/2NS with 1.5 amps of sodium bicarb will increase lasix to 40mg IV BID from 20mg and give another 20mg now after he got 20mg 2 hours ago. continue I/O measurements, orthostatic BP, and daily weights. Status: Acute (2) Hyperuricemia: Problem details: Likely due to metastatic disease. Start renal dose allopurinol Status: Acute (3) Malignancy: Status: Acute (4) Hypercalcemia: Problem details: Due to lytic lesions in the bone and chronic kidney disease. Hydration is working thus far Status: Acute (5) Bony metastasis: Problem details: Diffuse lytic bone lesions. Labs for multiple myeloma pending. Planning bone marrow biopsy with pathology and radiology to perform with assistance of CHEESE WEIGHER if we can not transfer Pain medications as needed Status: Acute (6) Anemia: Problem details: Likely due to diffuse bony lesions and chronic kidney disease. transfusing PRBCs to keep HGB >7 Status: Acute (7) Stage 5 chronic kidney disease: Problem details: multiple myeloma related, long standing HTN discussed with [facility] nephrology; Dr. Conrad, Keep fluids going same rate/same content. needs transfer to acute dialysis. Status: Acute Subjective Date Seen: 07/23/22 Interval history: Daily Progress Note - Hospital Medicine Day #: 2 CC: acute renal failure, metastatic cancer - unknown primary or if primary is bone OVERNIGHT UPDATES FROM STAFF & MED, LAB, IMAGING UPDATES feels better than when he was admitted; less pain. last oxy was last night. tells me he took more ibuprofen in the last month than he has in a lifetime. no dark stools or evidence of GI bleed after questioning patient. Afebrile, T-max 99.3 Daily weight 73.5 kilos, this is about 1 kg gain from yesterday at 72.8 Blood pressures are much improved from yesterday, currently 131/86, 127/74 129/78 Pulse 70s to 80s Respiratory rate 16 to 18 Normal sats on room air CBC today reveals a hemoglobin that has progressively downtrended. This morning it is 5.9 with normal platelets and just a mildly depressed total white blood cell count of 4.25, ANC 2400 Venous blood gas on ER arrival was normal, has not been recheck Electrolytes this morning are excellent with a normal sodium, normal potassium, normal carbon dioxide Creatinine remains significantly elevated at 10.3, BUN 68 Elevated uric acid Calcium is normal Phosphorus elevated on arrival 7.4 Pending multiple myeloma panel PSA normal Abdomen pelvis CT without contrast, review Numerous lytic lesions distributed throughout the entire visualized spine and pelvis, consistent with metastatic disease. Diffuse heterogeneous appearance of sclerosis elsewhere, also consistent with metastatic disease. Mild T12 and L1 compression fractures, probably Scheuermann`s disease, although cannot exclude compression fractures. No evidence of primary malignancy in the abdomen or pelvis. CT of the abdomen shows thickening of the wall of the inferior thoracic esophagus consistent with reflux esophagitis. Spleen top-normal in size. CT of the pelvis shows no additional abnormality. Review of Systems: See subjective Cardiac: No new chest pain/pressure/palpitations. Respiratory: no new dyspnea. GI: No abdominal bloating Objective: relaxed in bed, daughter bedside. no significant complaints. Vitals: see above Lungs: Clear. Cardiac: S1S2. abdomen soft Disposition/Potential discharge - Likely to return to previous living situation. Total time is 35 minutes with greater than 50% spent in counseling and coordination of care. Exam Const: Vital Signs, click to edit/add: Vital Signs - 24 hr 07/22/22 11:45 07/22/22 15:45 07/22/22 19:00 Temperature 98.4 F 97.3 F L 97.1 F L Pulse Rate [Left A pical] 82 77 81 Respiratory Rate 18 16 18 Blood Pressure [Ri ght Arm] 128/75 130/73 168/81 H Pulse Oximetry 99 95 98 Oxygen Delivery Me thod Room Air Room Air Room Air 07/22/22 23:00 07/22/22 23:00 07/23/22 03:00 Temperature 97.2 F L 97.8 F Pulse Rate [Left A pical] 81 84 78 Respiratory Rate 18 18 18 Blood Pressure [Ri ght Arm] 129/78 127/74 Pulse Oximetry 94 97 Oxygen Delivery Me thod Room Air Room Air 07/23/22 07:30 Temperature 97.1 F L Pulse Rate [Left A pical] 70 Respiratory Rate 16 Blood Pressure [Ri ght Arm] 131/86 Pulse Oximetry 96 Oxygen Delivery Me thod Room Air Labs Labs: Laboratory Results - last 24 hr 07/21/22 07/22/22 07/22/22 21:10 03:52 20:09 WBC RBC Hgb Hct MCV MCH MCHC RDW Coeff of Sharon Plt Count Neut % (Auto) Lymph % (Auto) [place] % (Auto) Eos % (Auto) Baso % (Auto) Neut # (Auto) Lymph # (Auto) [place] # (Auto) Eos # (Auto) Baso # (Auto) Abs Immat Gran (auto) Imm/Tot Granulo (auto) Sodium Cancelled Potassium Cancelled Chloride Cancelled Carbon Dioxide Cancelled BUN Cancelled Creatinine Cancelled Estimated Creat Clear Cancelled Estimated GFR Cancelled Glucose Cancelled Calcium Cancelled PSA Diagnostic 0.35 Blood Type O Positive Antibody Screen NEGATIVE Crossmatch ([facility]) See Detail 07/22/22 07/23/22 07/23/22 20:15 06:49 06:49 WBC 4.25 L RBC 1.65 L Hgb 5.9 L* Hct 16.7 L MCV 101 H MCH 36 H MCHC 35 RDW Coeff of Sharon 12.4 Plt Count 203 Neut % (Auto) 57.4 Lymph % (Auto) 29.9 [place] % (Auto) 7.5 Eos % (Auto) 4.7 Baso % (Auto) 0.5 Neut # (Auto) 2.40 Lymph # (Auto) 1.30 [place] # (Auto) 0.30 Eos # (Auto) 0.20 Baso # (Auto) 0.00 Abs Immat Gran (auto) 0.00 Imm/Tot Granulo (auto) 0.0 Sodium 136 136 Potassium 4.5 4.1 Chloride 104 105 Carbon Dioxide 24 24 BUN 67 H 68 H Creatinine 10.1 H 10.3 H Estimated Creat Clear 7.58 7.44 Estimated GFR 5 5 Glucose 110 85 Calcium 9.6 9.4 PSA Diagnostic Blood Type Antibody Screen Crossmatch ([facility])
[2022-07-23 12:56] LABS: Lab Add On Test New Spec Needed
[2022-07-23 12:58] LABS: Ionized Calcium* 1.22 mmol/L (1.11-1.30)
--- NOTE | 2022-07-23 14:13 | PC.SOCIAL ---
Informed by nursing staff that pt's daughter, Sheeba Pierre, would like to speak with a social organization professor. Went to pt's room and met with pt and pt's daughter, Sheeba Pierre. Sheeba asked this worker if pt could fill out power of privacy attorney form and a health care directive. This worker informed that this worker will get the forms and come back to the pt's room. Sheeba stated that she didn't want to complete the forms until pt's other daughter, Anastasiia Broderick, came into the hospital to participate. This worker provided the phone number to the social work department for family to call when they are ready. Visited pt's room in the afternoon as this worker had not heard back from pt or family. Met with Pt and pt's daughter, Sheeba Pierre. Sheeba stated that pt's other daughter, Anastasiia Broderick, would not be able to make it to the hospital until tomorrow. This worker provided the family with the power of privacy attorney form and the health care directive form. Daughter states she will share with her sister and they will begin to fill it out. This worker informed daughter that she may contact the social work department tomorrow to obtain assistance in filling out the forms. Social work will follow up as necessary.
--- NOTE | 2022-07-23 15:09 | PC.NURSE ---
End of shift note: Patient is actively trying to be transferred to a larger facility for dialysis and oncology specialties. No beds available at this time. Received 1 unit of RBCs today for low hemoglobin. 2 more units are cross matched and ready if needed. Sodium bicard with .45 running at 200/hr. Has 2 PIVs that are patent. Getting Echo this afternoon. Voiding large amounts. Had 1 BM yesterday but not a very big one. Gave senna this morning and offered Suppository but declined at this time. Tylenol given for pain this morning but patient stated he really isn't having too much pain today. Patient is up ad lor in room. Showered today. BP slightly elevated but Lasix has been helping with this. Lung sounds are diminished. Bowel sounds are hypoactive. environmental services manager assisting family with living will and POA. Lots of family has been present today. Patient is withdrawn at times but likes to make jokes at times too. Patient is alert and oriented.
[2022-07-23] MEDS: OXYCODONE 5 MG TABLET PO (15:58)
[2022-07-23] MEDS: FUROSEMIDE 10 MG/ML inj 40 MG IVP (16:45)
--- NOTE | 2022-07-23 19:00 | PC.NURSE ---
End of shift note [id number]: Pt. will be transferred to a larger facility for dialysis and oncology. Sodium bicarb running at 200/hr. Has 2 PIVs that are patent. Echo completed this afternoon. Voiding large amounts. No BM this afternoon. Administered 5mg oxy for low back pain on right side. pt. rated pain 7/10 and after PRN oxy rated pain 4/10. Pt. is up ad lor in room. BP slightly elevated. Lung sounds are diminished. Bowel sounds were active this afternoon. Patient likes to make jokes but is docile and somewhat withdrawn. Dtr and son-in-law present at bedside for the entire afternoon. Patient is alert and oriented.
--- NOTE | 2022-07-23 21:01 | PC.NURSE ---
Calls placed to [facility] (including [place]), [facility] ([facility] and all other hospitals), [facility], [facility], [facility], [facility], [facility], [facility], [facility]AKRISHNA Ward, [facility] Ward, [facility] [place], [place], [place], [place], [place] at [address] no beds at any of these facilities. Recalled all facilities that had a possibly of openings this evening. Waiting for a call back from [facility] RAMAKRISHNA Ward.
[2022-07-23 21:06] LABS: Slide Review Reflex No
[2022-07-23 21:25] LABS: Magnesium* 1.9 mg/dL (1.5-2.6)
[2022-07-24] MEDS: OXYCODONE 5 MG TABLET PO ×2 (03:01→15:55)
[2022-07-24 04:00] VITALS: BP 161/95; PULSE 72; RESP 16; TEMP 36.4; O2SAT 95
--- NOTE | 2022-07-24 05:32 | PC.NURSE ---
Shift note: The pt has been pleasant and cooperative. he has been denying chest pain, short of breath and other distress throughout the shift. Denied dizzy or lightheaded. The pt has been c/o of mild to moderated lower back pain; PRN pain med was given with a good relief. IV fluid has been running 200ml/hr; the pt has been urinating a lot of urine ( 2400 cc over 8 hours ).
[2022-07-24 06:37] LABS: HCO3 VBG 32 mmol/L (21-28); PCO2 VBG 42 mmHG (40-50); PO2 VBG 39.1 mmHG (25-47); pH VBG 7.488 (7.32-7.43)
[2022-07-24 06:43] LABS: Hematocrit 20.8 % (37.0-53.0); Mean Corpuscular HGB Conc 35 gm/dL (32-36); Mean Corpuscular Hemoglobin 34 pg (26-34); Mean Corpuscular Volume 97 fL (80-100); Platelet Count* 182 K/uL (140-440); Red Blood Count 2.15 m/uL (4.30-5.90); White Blood Count* 4.21 K/uL (4.50-11.00)
[2022-07-24 06:45] LABS: Hemoglobin* 7.3 gm/dL (13.5-17.5); Slide Review Reflex No
[2022-07-24] MEDS: FUROSEMIDE 10 MG/ML inj 40 MG IVP ×2 (06:55→16:50)
[2022-07-24 06:59] LABS: INR 1.09 (0.91-1.10); Prothrombin Time 14.7 Seconds
[2022-07-24 07:04] LABS: Albumin* 3.6 g/dL (3.3-5.0); Chloride* 100 mmol/L (96-114)
[2022-07-24 07:05] LABS: Potassium* 3.8 mmol/L (3.6-5.1); Sodium* 136 mmol/L (135-149)
[2022-07-24 07:06] LABS: Creatinine* 10.3 mg/dL (0.5-1.5); Est. Creatinine Clearance* 7.44; Estimated Glomerular Filt Rate 5 ml/min
[2022-07-24 07:07] LABS: Alanine Aminotransferase* 52 U/L (4-50); Alkaline Phosphatase* 150 U/L (40-150); Aspartate Amino Transferase* 41 U/L (12-35); Bilirubin Total* 0.9 mg/dL (0.1-1.5); Blood Urea Nitrogen* 67 mg/dL (7-30); Carbon Dioxide* 30 mmol/L (20-32); Gamma Glutamyl Transpeptidase* 117 U/L (8-55); Glucose* 100 mg/dL (60-115); Total Protein* 6.7 g/dL (6.0-8.3)
[2022-07-24 07:08] LABS: Calcium* 9.5 mg/dL (8.4-10.6); Magnesium* 1.9 mg/dL (1.5-2.6)
[2022-07-24 07:10] LABS: C Reactive Protein* 0.7 mg/dL (0.5-1.0)
[2022-07-24 07:18] LABS: NT Pro B Type NatriureticPept* 9200 PG/mL (0-125)
[2022-07-24 07:24] LABS: Procalcitonin* 0.67 ng/mL (<0.50)
[2022-07-24 07:32] LABS: Troponin I* 0.09 ng/mL (0.01-0.04)
--- NOTE | 2022-07-24 07:59 | CRLHL7_ITS ---
For Patients: As a result of the Century Cures Act, medical imaging exams and procedure reports are released immediately into your electronic medical record. You may view this report before your referring provider. If you have questions, please contact your health care provider. INDICATION: CHF. Acute renal failure. COMPARISON: July 18, 2022 TECHNIQUE: Single-view study July 24, 2022 at 8:11 a.m. FINDINGS: TUBES AND LINES: None. HEART AND MEDIASTINUM: The heart size is normal. The mediastinal contour appears normal for patient age. LUNGS AND PLEURAL SPACES: Left basilar airspace process favor atelectasis over aspiration or pneumonia. This is new since the prior study.No plain film findings of congestive heart failure. OSSEOUS STRUCTURES: Age-appropriate appearance. No acute focal finding. IMPRESSION: Left basilar airspace process favor atelectasis however aspiration or pneumonia. This is new since the prior study. No plain film findings of congestive heart failure. Dictated by Yousuf Freitas MD @ 07/24/2022 8:43:25 AM (Electronically Signed)
[2022-07-24 08:00] VITALS: BP 141/90; PULSE 79; RESP 16; TEMP 36.3; O2SAT 96
[2022-07-24] MEDS: cefTRIAXone 1 GM in 0.9 % SODIUM CHLORIDE Mini-bag 100 ML IVPB (09:33)
[2022-07-24] MEDS: AZITHROMYCIN 250 MG TABLET PO (10:48)
[2022-07-24] MEDS: allopurinoL 100 MG TABLET 50 MG PO (10:51)
[2022-07-24 12:05] VITALS: BP 159/95; PULSE 74; RESP 18; TEMP 36.3; O2SAT 98
[2022-07-24 12:10] LABS: Free Urine LAmbda Light Chains 11.08 mg/L (0.00-3.79); Hours Collected Not Provided hr; Total Volume Not Provided mL
[2022-07-24 13:12] LABS: NT Pro B Type NatriureticPept* 764 PG/mL (0-125)
--- NOTE | 2022-07-24 13:14 | PM.IMPN1 ---
Progress Note: A&P Assessment and plan (1) Multiple myeloma: Problem details: light chain burden noted; lytic bone lesions noted; no biopsy yet heme/onc once transferred vs outpatient Status: Acute (2) Stage 5 chronic kidney disease: Problem details: multiple myeloma related, long standing HTN discussed with ANW nephrology; Dr. Conrad, Keep fluids going same rate/same content. needs transfer to acute dialysis. Status: Acute (3) Hypercalcemia: Problem details: Due to lytic lesions in the bone and chronic kidney disease. Hydration is working thus far Status: Acute (4) Anemia: Problem details: Likely due to diffuse bony lesions and chronic kidney disease. transfusing PRBCs to keep HGB >7 Status: Acute Subjective Date Seen: 07/24/22 Interval history: Daily Progress Note - Hospital Medicine Day #: 3 CC: acute renal failure, metastatic cancer OVERNIGHT UPDATES FROM STAFF & MED, LAB, IMAGING UPDATES feels better than when he was admitted; less pain. not needing opioids. sitting up playing cribbage. eating well. Afebrile, T-max 99.3 Daily weight 72.2kgs, down from 73.5 kilos,72 is his baseline. Blood pressures are elevated. Pulse 70s to 80s Respiratory rate 16 to 18 Normal sats on room air Hemoglobin this morning is 7.3, up from 5.9 with 1 unit transfused yesterday Mildly leukopenic, normal platelets INR normal Blood gas show some mild alkalosis at 7.49 Urine total of free kappa light chains are 11,600 Urine free lambda light chains 11.08 Creatinine 10.3, BUN 67 essentially unchanged Normal potassium, sodium, uric acid, ionized calcium, phosphorus is down trending, normal magnesium, normal total bili LFTs are mildly elevated Troponin is mildly elevated at 0.09, undetectable at admission BNP is 9200, with an admitted level of 764 Echo was essentially yesterday, normal EF, normal valves, grade 1 diastolic dysfunction Procalcitonin is mildly elevated Chest x-ray, portable this morning shows Left basilar airspace process favor atelectasis however aspiration or pneumonia. This is new since the prior study. No plain film findings of congestive heart failure Abdomen pelvis CT without contrast, reviewed from admission Numerous lytic lesions distributed throughout the entire visualized spine and pelvis, consistent with metastatic disease. Diffuse heterogeneous appearance of sclerosis elsewhere, also consistent with metastatic disease. Mild T12 and L1 compression fractures, probably Scheuermann`s disease, although cannot exclude compression fractures. No evidence of primary malignancy in the abdomen or pelvis. CT of the abdomen shows thickening of the wall of the inferior thoracic esophagus consistent with reflux esophagitis. Spleen top-normal in size. CT of the pelvis shows no additional abnormality. Review of Systems: See subjective Cardiac: No new chest pain/pressure/palpitations. Respiratory: no new dyspnea. GI: No abdominal bloating Objective: relaxed in bed, daughter bedside. no significant complaints. Vitals: see above Lungs: Clear. Cardiac: S1S2. abdomen soft Disposition/Potential discharge - Likely to return to previous living situation. Total time is 35 minutes with greater than 50% spent in counseling and coordination of care. Exam Const: Vital Signs, click to edit/add: Vital Signs - 24 hr 07/23/22 14:14 07/23/22 15:00 07/23/22 16:00 Temperature 98.2 F 97.1 F L Pulse Rate 68 Pulse Rate [Left A pical] 87 86 Respiratory Rate 16 16 16 Blood Pressure 133/75 Blood Pressure [Le ft Arm] 168/94 H Blood Pressure [Ri ght Arm] Pulse Oximetry 98 95 Oxygen Delivery Me thod Room Air 07/23/22 19:05 07/23/22 23:30 07/23/22 23:30 Temperature 98.2 F 98.1 F Pulse Rate Pulse Rate [Left A pical] 85 85 85 Respiratory Rate 16 16 16 Blood Pressure Blood Pressure [Le ft Arm] Blood Pressure [Ri ght Arm] 160/88 H 159/82 H Pulse Oximetry 95 96 Oxygen Delivery Me thod Room Air Room Air 07/24/22 04:00 07/24/22 08:00 07/24/22 12:05 Temperature 97.5 F L 97.4 F L 97.4 F L Pulse Rate Pulse Rate [Left A pical] 72 79 74 Respiratory Rate 16 16 18 Blood Pressure Blood Pressure [Le ft Arm] Blood Pressure [Ri ght Arm] 161/95 H 141/90 H 159/95 H Pulse Oximetry 95 96 98 Oxygen Delivery Me thod Room Air Room Air Room Air Labs Labs: Laboratory Results - last 24 hr 07/21/22 07/22/22 07/23/22 21:10 03:45 06:49 WBC RBC Hgb Hct MCV MCH MCHC Plt Count INR VBG pH VBG pCO2 VBG pO2 VBG HCO3 Sodium Potassium Chloride Carbon Dioxide BUN Creatinine Estimated Creat Clear Estimated GFR Glucose Uric Acid Calcium Phosphorus Magnesium 1.9 Total Bilirubin GGT AST ALT Alkaline Phosphatase Troponin I C-Reactive Protein NT-Pro-B Natriuret Pep Total Protein Albumin Procalcitonin Ur Collection Duration Not Provided Urine Total Volume Not Provided Urine Total Protein Not Applicable U Free [place] Light Ch 12775.40 H U Free [place] Excretion Not Applicable U Free Lambda Light Ch 11.08 H Free Lambda Excret 24 Not Applicable U B-J (VENUS) Interp See Note Crossmatch ([facility]) See Detail 07/23/22 07/24/22 07/24/22 12:45 06:28 06:28 WBC 4.21 L RBC 2.15 L Hgb 7.3 L* Hct 20.8 L MCV 97 MCH 34 MCHC 35 Plt Count 182 INR VBG pH VBG pCO2 VBG pO2 VBG HCO3 Sodium 136 Potassium 3.8 Chloride 100 Carbon Dioxide 30 BUN 67 H Creatinine 10.3 H Estimated Creat Clear 7.44 Estimated GFR 5 Glucose 100 Uric Acid 8.0 Calcium 9.5 Phosphorus 6.0 H Magnesium Cancelled 1.9 Total Bilirubin 0.9 GGT 117 H AST 41 H ALT 52 H Alkaline Phosphatase 150 Troponin I 0.09 H* C-Reactive Protein 0.7 NT-Pro-B Natriuret Pep 9200 H Total Protein 6.7 Albumin 3.6 Procalcitonin 0.67 H Ur Collection Duration Urine Total Volume Urine Total Protein U Free [place] Light Ch U Free [place] Excretion U Free Lambda Light Ch Free Lambda Excret 24 U B-J (VENUS) Interp Crossmatch ([facility]) 07/24/22 07/24/22 06:28 06:28 WBC RBC Hgb Hct MCV MCH MCHC Plt Count INR 1.09 VBG pH 7.488 H VBG pCO2 42 VBG pO2 39.1 VBG HCO3 32 H Sodium Potassium Chloride Carbon Dioxide BUN Creatinine Estimated Creat Clear Estimated GFR Glucose Uric Acid Calcium Phosphorus Magnesium Total Bilirubin GGT AST ALT Alkaline Phosphatase Troponin I C-Reactive Protein NT-Pro-B Natriuret Pep Total Protein Albumin Procalcitonin Ur Collection Duration Urine Total Volume Urine Total Protein U Free [place] Light Ch U Free [place] Excretion U Free Lambda Light Ch Free Lambda Excret 24 U B-J (VENUS) Interp Crossmatch ([facility])
[2022-07-24 13:15] LABS: Troponin I* 0.02 ng/mL (0.01-0.04)
[2022-07-24 15:00] VITALS: PULSE 82; RESP 16
[2022-07-24 16:00] VITALS: BP 147/84; PULSE 82; RESP 16; TEMP 36.3; O2SAT 96
[2022-07-24 20:00] VITALS: BP 168/99; PULSE 77; RESP 16; TEMP 36.6; O2SAT 96
--- NOTE | 2022-07-24 22:53 | PC.NURSE ---
Multiple calls made to hospitals in 3 hour radius including [facility], [facility], [facility], [facility], [facility], [facility], [facility], [facility], [facility], [facility], [facility], [facility], [facility], [facility]. No beds available at this time.
--- NOTE | 2022-07-24 23:44 | PC.NURSE ---
End of Shift: Patient pleasant and cooperative. Afebrile. C/o back pain of 4/10 and PRN Oxycodone given x1. Fluids running as ordered. Up independently in room. Tolerating regular diet with no nausea. Per patient no BM since 07/20, updated MD and standing order suppository ordered.
[2022-07-25 00:29] LABS: Albumin 3.49 g/dL (3.75-5.01); Alpha 1 Globulin 0.29 g/dL (0.19-0.46); Immunofixation IFE Done; Monoclonal Protein 1.39 g/dL; Total Protein, Serum 6.4 g/dL (6.3-8.2)
[2022-07-25 01:50] VITALS: PULSE 71; RESP 16
[2022-07-25 05:00] VITALS: BP 142/92; PULSE 77; RESP 16; TEMP 37; O2SAT 95
[2022-07-25] MEDS: ACETAMINOPHEN 325 MG TABLET 650 MG PO (05:06)
[2022-07-25] MEDS: FUROSEMIDE 10 MG/ML inj 40 MG IVP (06:21)
[2022-07-25 06:50] LABS: HCO3 VBG 36 mmol/L (21-28); Ionized Calcium* 1.15 mmol/L (1.11-1.30); PCO2 VBG 48 mmHG (40-50); PO2 VBG 42.4 mmHG (25-47); pH VBG 7.486 (7.32-7.43)
[2022-07-25 06:57] LABS: Hematocrit 21.6 % (37.0-53.0); Mean Corpuscular HGB Conc 35 gm/dL (32-36); Mean Corpuscular Hemoglobin 34 pg (26-34); Mean Corpuscular Volume 96 fL (80-100); Platelet Count* 196 K/uL (140-440); Red Blood Count 2.26 m/uL (4.30-5.90); White Blood Count* 4.06 K/uL (4.50-11.00)
[2022-07-25 07:21] LABS: Albumin* 3.8 g/dL (3.3-5.0); Chloride* 95 mmol/L (96-114)
[2022-07-25 07:22] LABS: Potassium* 3.4 mmol/L (3.6-5.1); Sodium* 138 mmol/L (135-149)
[2022-07-25 07:23] LABS: Hemoglobin* 7.6 gm/dL (13.5-17.5); Slide Review Reflex No
[2022-07-25 07:24] LABS: Creatinine* 10.7 mg/dL (0.5-1.5); Est. Creatinine Clearance* 7.16; Estimated Glomerular Filt Rate 5 ml/min
[2022-07-25 07:25] LABS: Alanine Aminotransferase* 45 U/L (4-50); Alkaline Phosphatase* 147 U/L (40-150); Aspartate Amino Transferase* 29 U/L (12-35); Blood Urea Nitrogen* 61 mg/dL (7-30); Carbon Dioxide* 35 mmol/L (20-32); Gamma Glutamyl Transpeptidase* 110 U/L (8-55); Glucose* 93 mg/dL (60-115); Uric Acid* 8.4 mg/dL (2.2-8.4)
[2022-07-25 07:26] LABS: Calcium* 9.3 mg/dL (8.4-10.6); Magnesium* 1.8 mg/dL (1.5-2.6)
[2022-07-25 07:28] LABS: C Reactive Protein* 0.6 mg/dL (0.5-1.0)
[2022-07-25 07:33] LABS: NT Pro B Type NatriureticPept* 7970 PG/mL (0-125)
--- NOTE | 2022-07-25 07:38 | PM.IMPN1 ---
Progress Note: A&P Assessment and plan (1) Metabolic acidosis: Problem details: 200 cc/hr of 1/2NS with 1.5 amps of sodium bicarb will increase lasix to 40mg IV BID from 20mg and give another 20mg now after he got 20mg 2 hours ago. continue I/O measurements, orthostatic BP, and daily weights. Status: Acute (2) Hyperuricemia: Problem details: Likely due to metastatic disease. Start renal dose allopurinol Status: Acute (3) Malignancy: Status: Acute (4) Hypercalcemia: Problem details: Due to lytic lesions in the bone and chronic kidney disease. Hydration is working thus far Status: Acute (5) Bony metastasis: Problem details: Diffuse lytic bone lesions. Labs for multiple myeloma pending. Planning bone marrow biopsy with pathology and radiology to perform with assistance of MAIL ROOM CLERK if we can not transfer Pain medications as needed Status: Acute (6) Anemia: Problem details: Likely due to diffuse bony lesions and chronic kidney disease. transfusing PRBCs to keep HGB >7 Status: Acute (7) Stage 5 chronic kidney disease: Problem details: multiple myeloma related, long standing HTN discussed with ANW nephrology; Dr. Conrad, Keep fluids going same rate/same content. needs transfer to acute dialysis. Status: Acute Subjective Interval history: Daily Progress Note - Hospital Medicine Day #: 4 CC: acute renal failure, multiple myeloma OVERNIGHT UPDATES FROM STAFF & MED, LAB, IMAGING UPDATES M-spikes in the gamma region. The monoclonal protein peaks collectively account for 1.39 g/dL of the total 1.44 g/dL of protein in the gamma region. VENUS gel pattern shows an IgG type kappa monoclonal protein with a free kappa light chain monoclonal protein with additional multiple very faint bands in kappa. Chest x-ray, portable this morning shows Left basilar airspace process favor atelectasis however aspiration or pneumonia. This is new since the prior study. No plain film findings of congestive heart failure Abdomen pelvis CT without contrast, reviewed from admission Numerous lytic lesions distributed throughout the entire visualized spine and pelvis, consistent with metastatic disease. Diffuse heterogeneous appearance of sclerosis elsewhere, also consistent with metastatic disease. Mild T12 and L1 compression fractures, probably Scheuermann`s disease, although cannot exclude compression fractures. No evidence of primary malignancy in the abdomen or pelvis. CT of the abdomen shows thickening of the wall of the inferior thoracic esophagus consistent with reflux esophagitis. Spleen top-normal in size. CT of the pelvis shows no additional abnormality. Review of Systems: See subjective Cardiac: No new chest pain/pressure/palpitations. Respiratory: no new dyspnea. GI: No abdominal bloating Objective: relaxed in bed, daughter bedside. no significant complaints. Vitals: see above Lungs: Clear. Cardiac: S1S2. abdomen soft Disposition/Potential discharge - Likely to return to previous living situation. Total time is 35 minutes with greater than 50% spent in counseling and coordination of care. Exam Const: Vital Signs, click to edit/add: Vital Signs - 24 hr 07/24/22 08:00 07/24/22 12:05 07/24/22 16:00 Temperature 97.4 F L 97.4 F L 97.3 F L Pulse Rate [Left A pical] 79 74 82 Respiratory Rate 16 18 16 Blood Pressure [Ri ght Arm] 141/90 H 159/95 H 147/84 H Pulse Oximetry 96 98 96 Oxygen Delivery Me thod Room Air Room Air Room Air 07/24/22 15:00 07/24/22 20:00 07/25/22 01:50 Temperature 97.8 F Pulse Rate [Left A pical] 82 77 71 Respiratory Rate 16 16 16 Blood Pressure [Ri ght Arm] 168/99 H Pulse Oximetry 96 Oxygen Delivery Me thod Room Air 07/25/22 05:00 Temperature 98.6 F Pulse Rate [Left A pical] 77 Respiratory Rate 16 Blood Pressure [Ri ght Arm] 142/92 H Pulse Oximetry 95 Oxygen Delivery Me thod Room Air Labs Labs: Laboratory Results - last 24 hr 07/21/22 07/22/22 07/22/22 21:10 03:45 08:54 WBC RBC Hgb Hct MCV MCH MCHC Plt Count VBG pH VBG pCO2 VBG pO2 VBG HCO3 Ionized Calcium Cintia Troponin I 0.02 NT-Pro-B Natriuret Pep 764 H Serum Total Protein 6.4 Albumin % 3.49 L Dwluw-8-Espkjarli 0.29 Hktcj-2-Sbenntlhi 0.60 Beta Globulins 0.58 Gamma Globulins 1.44 Ser Monoclonal Prot 2 1.39 Serum PEP EER See Note Serum Immunofixation VENUS Done Ur Collection Duration Not Provided Urine Total Volume Not Provided Urine Total Protein Not Applicable U Free [place] Light Ch 29084.40 H U Free [place] Excretion Not Applicable U Free Lambda Light Ch 11.08 H Free Lambda Excret 24 Not Applicable U B-J (VENUS) Interp See Note VENUS & SPEP Interp See Note 07/25/22 07/25/22 06:33 06:33 WBC 4.06 L RBC 2.26 L Hgb 7.6 L* Hct 21.6 L MCV 96 MCH 34 MCHC 35 Plt Count 196 VBG pH 7.486 H VBG pCO2 48 VBG pO2 42.4 VBG HCO3 36 H Ionized Calcium Cintia 1.15 Troponin I NT-Pro-B Natriuret Pep Serum Total Protein Albumin % Rtzlk-4-Czcldqjqu Oghsd-2-Hrvwwadsb Beta Globulins Gamma Globulins Ser Monoclonal Prot 2 Serum PEP EER Serum Immunofixation Ur Collection Duration Urine Total Volume Urine Total Protein U Free [place] Light Ch U Free [place] Excretion U Free Lambda Light Ch Free Lambda Excret 24 U B-J (VENUS) Interp VENUS & SPEP Interp
[2022-07-25 07:41] LABS: Procalcitonin* 0.67 ng/mL (<0.50)
[2022-07-25 07:49] LABS: Phosphorus* 6.8 mg/dL (2.5-4.5)
[2022-07-25 07:50] LABS: Troponin I* 0.06 ng/mL (0.01-0.04)
--- NOTE | 2022-07-25 08:02 | PC.NURSE ---
END OF SHIFT NOTE: PT PLEASANT AND COOPERATIVE. VSS ON RA. AFEBRILE. C/O LOWER BACK PAIN / PRN PAIN RELIEVER ADMINISTERED SEE eMAR. PT CONTINUES TO AWAIT FOR OPEN BED FOR TRANSFER.
[2022-07-25 08:15] VITALS: BP 149/89; PULSE 69; RESP 16; TEMP 36.3; O2SAT 96
[2022-07-25] MEDS: 0.45 % SODIUM CHLORIDE 1000 ML 1,000 ML 125 ML IV (10:21)
[2022-07-25] MEDS: cefTRIAXone 1 GM in 0.9 % SODIUM CHLORIDE Mini-bag 100 ML IVPB (10:22)
[2022-07-25] MEDS: AZITHROMYCIN 250 MG TABLET PO (10:22)
--- NOTE | 2022-07-25 13:44 | PM.DS1 ---
DS: Providers Provider Date Seen: 07/25/22 Date of admission: 07/22/22 00:06 Primary care physician: Not a Local Provider Admitting Clinician: Juma Macias MD Attending Physician on discharge: Juma Macias MD Date of Discharge: 07/25/22 DS: Diagnosis Discharge Diagnosis (1) Multiple myeloma: Status: Acute Problem details: light chain burden noted; lytic bone lesions noted; no biopsy yet heme/onc once transferred vs outpatient (2) Anemia: Status: Acute (3) Renal failure: Status: Acute DS: Summary Hospital Course Hospital Course: HOSPITALIST TRANSFER SUMMARY ATTENDING PHYSICIAN: Flora Zheng MD REASON FOR TRANSFER End-stage renal disease Acute Dialysis need Multiple myeloma, presumed before biopsy BRIEF HOSPITAL COURSE: 61-year-old with no previous medical history presents with back pain. Multiple scattered lytic lesions noted throughout his skeleton. Renal failure with a creatinine of 10+. Initial studies suggest multiple myeloma. Hyperphosphatemia, hypercalcemia, mild metabolic acidosis managed with hydration. IV furosemide b.i.d. hemodynamically stable throughout stay. We worked to transfer Rickie to an acute dialysis unit from presentation in the emergency room. Due to healthcare shortage is there were no available beds. Ultimately on day 4 we had an accepting hospital, [facility]. Throughout his admission here in [place] we were speaking with Nephrology experts at [facility]. His transfer today is due to his need for acute dialysis, Nephrology and Hematology and Oncology consultations. SERVICES NOT AVAILABLE HERE THAT HIS PATIENT NEEDS: Hemodialysis Hematology/oncology Nephrology ACCEPTING PHYSICIAN/SERVICE/LOCATION: Dr. Obregon MEDICATIONS AT TIME OF TRANSFER: SEE MAR DRIPS/LINES: IV fluids VITAL SIGN, MEDICATION, LAB/MICRO, IMAGING SUMMARY (full details available in account tabs or by records request) M-spikes in the gamma region. The monoclonal protein peaks collectively account for 1.39 g/dL of the total 1.44 g/dL of protein in the gamma region. VENUS gel pattern shows an IgG type kappa monoclonal protein with a free kappa light chain monoclonal protein with additional multiple very faint bands in kappa. REVIEW OF SYSTEMS Unchanged. PHYSICAL EXAM: CONSTITUTIONAL: VITAL SIGNS: see record. Exam unchanged from earlier DISPOSITION: POV TRANSFER TO W Time spent on discharge >30 minutes. This includes speaking with accepting physician; family/patient and coordinating meds/drips for transfer Status at Discharge Functional status at discharge: independent ambulation Overall status at discharge: patient is progressing back to baseline Time Spent with Patient Time attestation: Total time spent providing and/or coordinating discharge services: Time spent: Greater than 30 minutes Exam Const: Vital Signs, click to edit/add: Vital Signs - 24 hr 07/24/22 16:00 07/24/22 15:00 07/24/22 20:00 Temperature 97.3 F L 97.8 F Pulse Rate [Left A pical] 82 82 77 Respiratory Rate 16 16 16 Blood Pressure [Ri ght Arm] 147/84 H 168/99 H Pulse Oximetry 96 96 Oxygen Delivery Me thod Room Air Room Air 07/25/22 01:50 07/25/22 05:00 07/25/22 08:15 Temperature 98.6 F 97.3 F L Pulse Rate [Left A pical] 71 77 69 Respiratory Rate 16 16 16 Blood Pressure [Ri ght Arm] 142/92 H 149/89 H Pulse Oximetry 95 96 Oxygen Delivery Me thod Room Air Room Air DS: Data Data Completed and Pending Labs on day of discharge: Labs from last 24 hours 07/25/22 07/25/22 07/25/22 06:33 06:33 06:33 WBC 4.06 L RBC 2.26 L Hgb 7.6 L* Hct 21.6 L MCV 96 MCH 34 MCHC 35 Plt Count 196 VBG pH 7.486 H VBG pCO2 48 VBG pO2 42.4 VBG HCO3 36 H Sodium 138 Potassium 3.4 L Chloride 95 L Carbon Dioxide 35 H BUN 61 H Creatinine 10.7 H Estimated Creat Clear 7.16 Estimated GFR 5 Glucose 93 Uric Acid 8.4 Calcium 9.3 Ionized Calcium Cintia 1.15 Phosphorus 6.8 H* Magnesium 1.8 Total Bilirubin 1.0 GGT 110 H AST 29 ALT 45 Alkaline Phosphatase 147 Troponin I 0.06 H* C-Reactive Protein 0.6 NT-Pro-B Natriuret Pep 7970 H Serum Total Protein Total Protein 7.0 Albumin 3.8 Albumin % Lalyh-2-Ypflvqvby Bqjby-5-Nlbwgaprj Beta Globulins Gamma Globulins Ser Monoclonal Prot 2 Serum PEP EER Procalcitonin 0.67 H Serum Immunofixation VENUS & SPEP Interp 07/22/22 08:54 WBC RBC Hgb Hct MCV MCH MCHC Plt Count VBG pH VBG pCO2 VBG pO2 VBG HCO3 Sodium Potassium Chloride Carbon Dioxide BUN Creatinine Estimated Creat Clear Estimated GFR Glucose Uric Acid Calcium Ionized Calcium Cintia Phosphorus Magnesium Total Bilirubin GGT AST ALT Alkaline Phosphatase Troponin I C-Reactive Protein NT-Pro-B Natriuret Pep Serum Total Protein 6.4 Total Protein Albumin Albumin % 3.49 L Rkbpu-1-Pfciyhlqq 0.29 Vztwh-9-Rqrenbsfc 0.60 Beta Globulins 0.58 Gamma Globulins 1.44 Ser Monoclonal Prot 2 1.39 Serum PEP EER See Note Procalcitonin Serum Immunofixation VENUS Done VENUS & SPEP Interp See Note Discharge Plan Discharge Disposition: [facility] Date of Admission: 07/22/22 00:06 Attending Provider on Discharge: Flora Zheng Primary Care Provider: Provider,Not a Local Discharge Medications: Continued cyclobenzaprine 10 mg tablet 10 mg PO BID PRN (Reason: muscle spasm) Qty: 60 1RF tramadol 50 mg tablet 50 mg PO Q6H PRN (Reason: pain) Qty: 10 0RF Discontinued meloxicam 7.5 mg tablet 7.5 - 15 mg PO DAILY lisinopril 10 mg tablet 10 mg PO DAILY Discharge Orders: Discharge Order (Routine); Ordered 07/25/22 Ordered By: Flora Zheng Additional Instructions: PATIENT MAY TRANSFER BY POV (DAUGHTER DRIVING) TO GO DIRECTLY TO [facility] SECONDARY TO DELAY IN EMS TRANSFER GO [facility] Follow Up Appointments: Provider,Not a Local [Primary Care Provider] - Forms: [facility] Info Instructions Hospital Course: HOSPITALIST TRANSFER SUMMARY ATTENDING PHYSICIAN: Flora Zheng MD REASON FOR TRANSFER End-stage renal disease Acute Dialysis need Multiple myeloma, presumed before biopsy BRIEF HOSPITAL COURSE: 61-year-old with no previous medical history presents with back pain. Multiple scattered lytic lesions noted throughout his skeleton. Renal failure with a creatinine of 10+. Initial studies suggest multiple myeloma. Hyperphosphatemia, hypercalcemia, mild metabolic acidosis managed with hydration. IV furosemide b.i.d. hemodynamically stable throughout stay. We worked to transfer Rickie to an acute dialysis unit from presentation in the emergency room. Due to healthcare shortage is there were no available beds. Ultimately on day 4 we had an accepting hospital, [facility]. Throughout his admission here in [place] we were speaking with Nephrology experts at [facility]. His transfer today is due to his need for acute dialysis, Nephrology and Hematology and Oncology consultations. SERVICES NOT AVAILABLE HERE THAT HIS PATIENT NEEDS: Hemodialysis Hematology/oncology Nephrology ACCEPTING PHYSICIAN/SERVICE/LOCATION: Dr. Obregon MEDICATIONS AT TIME OF TRANSFER: SEE MAR DRIPS/LINES: IV fluids VITAL SIGN, MEDICATION, LAB/MICRO, IMAGING SUMMARY (full details available in account tabs or by records request) M-spikes in the gamma region. The monoclonal protein peaks collectively account for 1.39 g/dL of the total 1.44 g/dL of protein in the gamma region. VENUS gel pattern shows an IgG type kappa monoclonal protein with a free kappa light chain monoclonal protein with additional multiple very faint bands in kappa. REVIEW OF SYSTEMS Unchanged. PHYSICAL EXAM: CONSTITUTIONAL: VITAL SIGNS: see record. Exam unchanged from earlier DISPOSITION: POV TRANSFER TO [facility] Time spent on discharge >30 minutes. This includes speaking with accepting physician; family/patient and coordinating meds/drips for transfer
--- NOTE | 2022-07-25 14:48 | PC.NURSE ---
Pt. transferred to [facility] at 1405 via private conveyance. Report given to Nurse Remigio at [facility] on [address].
== END 2022-07-25 14:05 | disposition short-term general hospital (02) | DRG 682 ==
LOC: ED 20:53 → MEDSURG 07-22 00:35
PROVIDERS: Family Medicine; Admitting Provider Family Medicine; Emergency Provider Family Medicine; Visit Provider Family Medicine
DX: I12.0 Hypertensive chronic kidney disease with stage 5 chronic kidney disease or end stage renal disease (principal); N18.6 End stage renal disease; C90.00 Multiple myeloma not having achieved remission; C79.51 Secondary malignant neoplasm of bone; E87.20 Acidosis, unspecified; N17.9 Acute kidney failure, unspecified; D63.8 Anemia in other chronic diseases classified elsewhere; D63.1 Anemia in chronic kidney disease; E11.22 Type 2 diabetes mellitus with diabetic chronic kidney disease; E83.52 Hypercalcemia; E79.0 Hyperuricemia without signs of inflammatory arthritis and tophaceous disease; M54.50 Low back pain, unspecified; M25.512 Pain in left shoulder
CPT/HCPCS: 36415; 36430; 51798; 71045; 74176; 80048; 80053; 82232; 82330; 82784; 82803; 82977; 83520; 83615; 83735; 83880; 84100; 84145; 84153; 84155; 84156; 84165; 84484; 84550; 85025; 85027; 85610; 86140; 86334; 86335; 86850; 86900; 86901; 86922; 87631; 87635; 93306; 94761; 99285; A9270; J0696; J1940; J7030; P9016

== ENCOUNTER 2023-10-13 22:13 | Outpatient (REF) | payer MEDICARE, SELFPAY ==
[2023-10-13 23:32] LABS: PSA Screen* 0.61 ng/mL (0.10-4.00)
== END 2023-10-13 22:14 | disposition home or self-care (01) ==
LOC: NPINS 22:13
PROVIDERS: PCP Family Medicine; Visit Provider Internal Medicine
DX: Z12.5 Encounter for screening for malignant neoplasm of prostate (principal)
CPT/HCPCS: G0103

== ENCOUNTER 2023-12-15 06:14 | Outpatient (CLI) | payer MEDICARE, OTHER, SELFPAY ==
--- OUTSIDE RECORDS SUMMARY | 2023-12-15 06:18 | XMS_ITS | Clinical Summary ---
Author Name Unknown Organization [facility] Address [address] [facility] [address] [place] [address] Care Team Providers Care Business Administrator Name Role Phone Unavailable Primary Care Provider Unavailabl e Encounters Date Type Department Care Team Description 12/08/2023 Orders Only [facility] [address] [facility] [address] [place] [phone] Elfego Mcnamara MD 12/08/2023 Treatment [facility] [place] [address] [place] [phone] Elfego Mcnamara MD 11/26/2023 Orders Only [facility] [address] [facility] [address] [place] [phone] Elfego Mcnamara MD 11/19/2023 Orders Only [facility] [address] [facility] [address] [place] [phone] Elfego Mcnamara MD 11/12/2023 Orders Only [facility] [address] [facility] [address] [place] [phone] Elfego Mcnamara MD 11/10/2023 Treatment [facility] [address] [place] [address] Elfego Mcnamara MD 11/05/2023 Orders Only [facility] [address] [facility] [address] [place] [phone] Elfego Mcnamara MD 10/29/2023 Orders Only [facility] [address] [facility] [address] [place] [address] Elfego Mcnamara MD 10/22/2023 Orders Only [facility] [address] [facility] [address] [place] [address] Elfego Mcnamara MD 10/20/2023 Treatment [facility] [address] [place] [address] Elfego Mcnamara MD 10/15/2023 Orders Only [facility] [address] [facility] [address] [place] [address] Elfego Mcnamara MD 10/08/2023 Orders Only [facility] [address] [facility] [address] [place] [address] Elfego Mcnamara MD 10/01/2023 Orders Only [facility] [address] [facility] [address] [place] [address] Elfego Mcnamara MD 09/24/2023 Orders Only [facility] [address] [facility] [address] [place] [address] Elfego Mcnamara MD from Last 3 Months Social History Tobacco Use Types Packs/Day Years Used Date Smoking Tobacco: Never Assessed Sex and Gender Information Value Date Recorded Sex Assigned at Not on file Gender Identity Not on file Sexual Orientation Not on file Plan of Treatment Health Maintenance Due Date Last Done Comments Pneumococcal Vaccine: Pediat rics (0 to 5 Years) and At-Risk Patients (6 to 64 Years) (1 of 2 - PCV) [birth year]20/1966 Hepatitis B Vaccine (1 of 5 - Risk Dialysis 4-dose series) 1979 Colorectal Cancer Screening: Annual FOBT 12/20/2008 Colorectal Cancer Screening: Colonoscopy 12/20/2008 Colorectal Cancer Screening: Sigmoidoscopy 12/20/2008 Influenza Vaccine (Season Ended) 2024 Procedures Procedure Name Priority Date/Time Associated Diagnosis Comments CHEMISTRY Routine 12/08/2023 HEMATOLOGY Routine 12/08/2023 CHEMISTRY Routine 12/08/2023 [facility] RESULTS Routine 11/26/2023 HD KINETICS Routine 11/26/2023 POST CHEMISTRY Routine 11/26/2023 CHEMISTRY Routine 11/26/2023 HEMATOLOGY Routine 11/26/2023 IMMUNO CHEMISTRY Routine 11/26/2023 HEMATOLOGY Routine 11/19/2023 HEMATOLOGY Routine 11/12/2023 HEMATOLOGY Routine 11/05/2023 HEMATOLOGY Routine 10/29/2023 HEMATOLOGY Routine 10/22/2023 HEMATOLOGY Routine 10/15/2023 [facility] LAB RESULTS Routine 10/08/2023 HD KINETICS Routine 10/08/2023 POST CHEMISTRY Routine 10/08/2023 CHEMISTRY Routine 10/08/2023 HEMATOLOGY Routine 10/08/2023 IMMUNO CHEMISTRY Routine 10/08/2023 HEMATOLOGY Routine 10/01/2023 HEMATOLOGY Routine 09/24/2023 from Last 3 Months Results * (ABNORMAL) HEMATOLOGY (12/08/2023) Only the most recent of11 resultswithin the time period is included. Hemoglobin 10.5(L) 14.0 - 18.0 g/dL [facility] Hemoglobin x 3 31.5(L) 42.0 - 54.0 % [facility] 12/08/2023 12/09/2023 2:[address] [facility] - 12/09/2023 Unless otherwise specified, test(s) performed at: [facility], [address] [place] [address], [place] [address] MUSICAL INSTRUMENT MAKER OR REPAIRER: Ramírez Jackman M.D., Ph.D For any questions, please call customer service at FREQUENCY:OTHER Resulting Agency Comment Specimen source: Blood Elfego Mcnamara MD LAB BLOOD ORDERABLES [facility] See order comments or contact performing lab Unknown, [place] * (ABNORMAL) [facility] (12/08/2023) Only the most recent of4 resultswithin the time period is included. BUN 58(H) 6 - 19 mg/dL [facility] Creatinine 7.48(H) 0.60 - 1.30 mg/dL [facility] BUN/Creatinine Ratio 7.8(L) 10.0 - 20.0 [facility] Sodium 139 136 - 145 mEq/L [facility] Potassium 4.6 3.5 - 5.1 mEq/L [facility] Chloride 107 96 - 108 mEq/L [facility] Bicarbonate (CO2) 21 20 - 31 mEq/L [facility] Calcium 8.9 8.7 - 10.4 mg/dL [facility] Comment: Please note change in reference range. Glucose 92 70 - 100 mg/dL [facility] 12/08/2023 12/09/2023 2:[address] [facility] - 12/09/2023 Unless otherwise specified, test(s) performed at: [facility], [address] [place] [address], [place] [address] [employer] INSTRUMENT MAKER OR REPAIRER: Ramírez Jackman M.D., Ph.D For any questions, please call customer service at FREQUENCY:OTHER Resulting Agency Comment Specimen source: Serum Elfego Mcnamara MD LAB BLOOD ORDERABLES Performing Organization Address [facility] de Phone Number [facility] See order comments or contact performing lab Unknown, [place] * HD KINETICS (11/26/2023) Only the most recent of2 resultswithin the time period is included. % Urea Reduction 70 65 - 80 % [facility] 11/26/2023 11/27/2023 8:1 1 AM CDT Narrative Resulting Agency Comment Specimen source: Plasma Elfego Mcnamara MD LAB BLOOD ORDERABLES Performing Organization Address [facility] de Phone Number [facility] * POST CHEMISTRY (11/26/2023) Only the most recent of2 resultswithin the time period is included. BUN Post Dialysis 13 6 - 19 mg/dL [facility] 11/26/2023 11/27/2023 8:1 1 AM CDT Narrative [facility] - 11/27/2023 Unless otherwise specified, test(s) performed at: [facility], [address] [place] [address], [place] [address] [employer]ICAL INSTRUMENT MAKER OR REPAIRER: Ramírez Jackman M.D., Ph.D For any questions, please call customer service at FREQUENCY:MONTHLY Resulting Agency Comment Specimen source: Plasma Elfego Mcnamara MD LAB BLOOD ORDERABLES Performing Organization Address [facility] de Phone Number [facility] * IMMUNO CHEMISTRY (11/26/2023) Only the most recent of2 resultswithin the time period is included. Hep B Surface Ag Negative Negative [facility] Hepatitis B Surface Ab <10 mIU/mL [facility] Comment: Reference Range: <10 mIU/mL ? Non-Immune >=10 mIU/mL ?Immune The magnitude of the measured result above 10 mIU/mL is not indicative of the total amount of antibody present. Custom Exception Hep B Core Total Ab Negative Negative [facility] Comment: Hep B Core Ab, Total appears during the acute infection stage and remains reactive/positive throughout the recovery stage. The above test result was obtained using [employer] IM chemiluminescent method. Results obtained with different assay methods or kits cannot be used interchangeably. 11/26/2023 11/27/2023 2:3 1 AM CDT Narrative [facility] - 11/27/2023 Unless otherwise specified, test(s) performed at: [facility], [address] [place] [address], [place] [address] [employer]ICAL INSTRUMENT MAKER OR REPAIRER: Ramírez Jackman M.D., Ph.D For any questions, please call customer service at FREQUENCY:MONTHLY Resulting Agency Comment Specimen source: Plasma Elfego Mcnamara MD LAB BLOOD ORDERABLES [facility] * [facility] Results (11/26/2023) Only the most recent of2 resultswithin the time period is included. eKt/V ([place]) 1.21 [facility] eKdrt/V 1.23 [facility] eNPCR 0.75 [facility] WSTDKT/V 1.6 [facility] spKt/V Gotch 1.50 [facility] PCR 40.62 [facility] eKt/V Gotch 1.23 [facility] spKt/V (Daugirdas II) 1.45 [facility] nPCR_HD 0.85 [facility] 11/26/2023 11/26/2023 Isabel Ordering Provider LAB BLOOD ORDERABLE S [facility] from Last 3 Months
--- OUTSIDE RECORDS SUMMARY | 2023-12-15 06:18 | XMS_ITS | Clinical Summary ---
Author Name Unknown Organization [facility] Address [address] [place] [address] Care Team Providers Care Paving Supervisor Name Role Phone None Reported, Pcp Primary Care Provider Unavail able Source Comments Patient records contain information from all sites at [facility]. For routine questions regarding patient records, call [phone] during business hours, M-F 8:00 AM - 5:00 PM Central Time. Record requests for emergency care only can be directed to [phone] at any time.[facility] Allergies No known active allergies Medications Medication Sig Dispensed Refills Start Date End Date Status aspirin (ASPIR-81 ORAL) Take 1 tablet by mouth daily. 0 Active allopurinoL (ZYLOPRIM) 100 mg tablet Take 100 mg by mouth as directed. Take on Mon, Wed, and Fri 0 08/01/2022 Active amLODIPine (NORVASC) 5 mg tablet Take 5 mg by mouth daily. 0 08/02/2022 Active bortezomib (VELCADE INJ) once a week. Injection every Thursday 0 Active daratumumab (DARZALEX IV) as directed. Injections on Tuesdays, three times a month 0 Active dexAMETHasone (DECADRON) 4 mg tablet Take 20 mg by mouth once a week. Take every Thursday 0 08/06/2022 Active oxyCODONE (ROXICODONE) 5 mg immediate release tablet Take 5 mg by mouth every 4 (four) hours as needed. 0 08/01/2022 Active valACYclovir (VALTREX) 500 mg tablet Take 500 mg by mouth daily. 0 08/01/2022 Active cyclophosphamide (CYTOXAN) 50 mg capsule Take by mouth once a week. Take 5 Tablets weekly on Tuesdays. Swallow whole. Do not break, cut, or open capsules. To minimize bladder toxicity, increase normal fluid intake. 0 Active acetaminophen (TYLENOL) 500 mg capsule Take 500 mg by mouth once a week. Take on Tuesdays 0 Active diphenhydrAMINE (BENADRYL) 25 mg capsule Take 25 mg by mouth once a week. Taken weekly on Tuesdays prior to injections 0 Active ferrous sulfate (IRON ORAL) Take by mouth. Given during dialysis 0 Active Active Problems Problem Noted Date Diagnosed Date Failure Renal Acute (Acute Kidney Injury) 2022 Multiple Myeloma Not Having Achieved Remission 0 10/06/2022 Hypertension And End Stage Renal Disease 023 Family History Medical History Relation Name Comments Breast cancer Sister 1 Karolyn Lung cancer Sister 2 Sonia Relation Name Status Comments Sister 1 Karolyn Sister 2 Sonia Social History Tobacco Use Types Packs/Day Years Used Date Smoking Tobacco: Never Smokeless Tobacco: Former Chew Quit: 06/07/2022 Tobacco Cessation:Counseling Given: Not Answered Comments:Regularly use Alcohol Use Standard Drinks/Week Comments Not Currently 1 (1 standard drink = 0.6 oz pur e alcohol) Humiliation, Afraid, Rape, and Kick questionnair e Answer Date Recorded Within the last year, have y ou been afraid of your partner or ex-partner? No 10/01/2022 Within the last year, have y ou been humiliated or emotionally abused in other ways by your partner or ex-partner? No Within the last year, have y ou been kicked, hit, slapped, or otherwise physically hurt by your partner or ex-partner? No 10/01/2022 Within the last year, have y ou been raped or forced to have any kind of sexual activity by your partner or ex-partner? No 10/01/2022 Social Connection and Isolat ion Panel [NHANES] Answer Date Recorded In a typical week, how many times do you talk on the phone with family, friends, or neighbors? More than three times a week 10/01/2022 How often do you get togethe r with friends or relatives? Twice a week 10/01/2022 How often do you attend [facility] or taoist services? Never 10/01/2022 Do you belong to any clubs o r organizations such as latter day groups, unions, fraternal or athletic groups, or school groups? No 10/01/2022 How often do you attend meet ings of the clubs or organizations you belong to? Never 10/01/2022 Are you , , di vorced, , never , or living with a partner? 10/01/2022 AUDIT-C Answer Date Recorded Q1: How often do you have a drink containing alc ohol? Monthly or less 10/01/2022 Q2: How many drinks containi ng alcohol do you have on a typical day when you are drinking? 1 or 2 10/01/2022 Q3: How often do you have si x or more drinks on one occasion? Never 10/01/2022 Overall Financial Resource Strain (CARDIA) Answe r Date Recorded How hard is it for you to pa y for the very basics like food, housing, medical care, and heating? Not hard at all 10/01/2022 PHQ-2 Answer Date Recorded PHQ-2 Score 0 11/25/2022 [facility] - Occupational Stress Questionnaire Answer Date Recorded Do you feel stress - tense, restless, nervous, or anxious, or unable to sleep at night because your mind is troubled all the time - these days? Not at all 10/01/2022 Exercise Vital Sign Answer Date Recorde d On average, how many days pe r week do you engage in moderate to strenuous exercise (like a brisk walk)? 3 days 10/01/2022 On average, how many minutes do you engage in exercise at this level? 10 min 10/01/2022 Hunger Vital Sign Answer Date Recorded Within the past 12 months, y ou worried that your food would run out before you got the money to buy more. Never true 10/01/19 23 Within the past 12 months, t he food you bought just didn't last and you didn't have money to get more. Never true 10/01/2022 PRAPARE - Transportation Answer Date Re corded In the past 12 months, has l ack of transportation kept you from medical appointments or from getting medications? No 09/08 In the past 12 months, has l ack of transportation kept you from meetings, work, or from getting things needed for daily living? No 10/01/2022 Housing Stability Vital Sign Answer Arpan e Recorded In the last 12 months, was t here a time when you were not able to pay the mortgage or rent on time? No 10/01/2022 In the last 12 months, how many places have you lived? 2 10/01/2022 In the last 12 months, was t here a time when you did not have a steady place to sleep or slept in a long term (including now)? No 10/01/2022 Nutrition Answer Date Recorded Nutrition: EVOO Fat Source Yes 10/01 On average, how many serving s of fruits and vegetables do you eat per day (serving size is equal to 1 cup or approximately the size of a tennis ball)? 2-3 10/01/2022 Dental Answer Date Recorded Dental: Regular Dentist No 10/01/19 Employment Answer Date Recorded Employment status Employed and actively working without restrictions 10/01/2022 Education Answer Date Recorded What is the highest level of school you have completed or the highest degree you have received? 10th grade 10/01/2022 Sex and Gender Information Value Date Recorded Sex Assigned at Male 11/25/2022 12:58 PM CDT Gender Identity Male 11/25/2022 12:58 PM CDT Sexual Orientation Straight 11/25/2022 12 :58 PM CDT Last Filed Vital Signs Vital Sign Reading Time Taken Comments Blood Pressure 112/63 02/10/2023 9:20 AM CDT Pulse 88 02/10/2023 9:10 AM CDT Temperature 36.7 ??C (98.1 ??F) 02/10/2023 7:59 AM CD T Respiratory Rate 19 02/10/2023 9:20 AM CDT Oxygen Saturation 86% 02/10/2023 9:10 AM CDT Inhaled Oxygen Concentration - - Weight 69.7 kg (153 lb 10.6 oz) 02/10/2023 7:59 AM CDT Height 179.1 cm (5' 10.51) 02/10/2023 7:59 AM C DT Body Mass Index 21.73 02/10/2023 7:59 AM CDT Plan of Treatment Health Maintenance Due Date Last Done Comments CT Colonography 1959 Cologuard 1959 Colonoscopy 1959 Colorectal Cancer Screening 1959 FIT 1959 Hepatitis C Screening 1959 Lipid (Cholesterol) Screening 1959 Visit: Chronic Disease, age 18+ 1959 COVID-19 Vaccine (#1) 12/20/1964 Pneumococcal vaccine (0-64 years) (1 of 2 - PCV) 12/20/1965 Zoster Vaccines (1 of 2) 12/20/1978 DTaP,Tdap,and Td Vaccines (2 - Td or Tdap) 02/12/2021 02/12/2011, 04/28/2003 Influenza Vaccine (#1) 2023 Depression Screening (Annual PHQ-2) 09/07/2023 Office Visit for Blood Pressure Check / Re-check 11/28/2023 11/27/2022 Fasting Glucose for Diabetes Screening 11/03/2026 11/03/2023, 11/25/2022, 10/06/2022, Additional history exists HPV Vaccines Aged Out No longer eligi ble based on patient's age to complete this topic Medical Devices Implanted Type Area Tool Room Supervisor Device Identifier Shelf Expiration Date Model / Serial / Lot Implantable Port Implantable Port Right: Chest Description:Port in upper ri ght chest for dialysis Additional Health Concerns Infection Onset Date Last Indicated Protective Environment 12/12/2022 3 Care Teams Paving Supervisor Relationship Specialty Start Date End Date None Reported, Pcp PCP - General Family Medicine 10/02/22
--- OUTSIDE RECORDS SUMMARY | 2023-12-15 06:18 | XMS_ITS ---
Author Name Unknown Organization [facility] Address [address] [place] [address] Care Team Providers Care Farm Boss Name Role Phone Unavailable Unavailable Unavailable Surgery Details Not on file Complications Check Surgery Details section. Procedure Estimated Blood Loss Check Surgery Details section. Procedure Findings Check Surgery Details section. Procedure Specimens Taken Check Surgery Details section.
--- OUTSIDE RECORDS SUMMARY | 2023-12-15 06:18 | XMS_ITS | Encounter Summary ---
Author Name Unknown Organization [facility] Address [address] [place] [id number] Care Team Providers Care President [employer] Name Role Phone Skyler Angel MD Unavailable Skyler Angel MD Unavailable Reason for Visit * Reason Onset Date Comments Patient Request 11/02/2023 Encounter Details Date Type Department Care Team (Late st Contact Info) Description 11/02/[address] [place] [address] Skyler Angel MD [address] [place] [address] Patient Request Social History Tobacco Use Types Packs/Day Years Used Date Smoking Tobacco: Never Assessed Adolescent Education Answer Date Record ed Getting School Help Needed Not on file 06/04 Sex and Gender Information Value Date Recorded Sex Assigned at Not on file Gender Identity Not on file Sexual Orientation Not on file documented as of this encounter Miscellaneous Notes * Telephone Encounter - Cecille Stauffer RN - 11/02/2023 3:[address] Angel: He can get labs ting without dialysis. It is ok. Please get full CKD labs and cystatin C as well Informed patient of Dr. Angel's recommendation. He verbalized understanding. FIRST ASSISTANT * Telephone Encounter - Cecille Stauffer RN - 11/02/2023 1:56 PM CST Contacted patient to discuss. He is a currently dialysis patient since July 2023. He dialyzes at a [facility] unit in [place]. He was referred for a second opinion from his oncologist to determine if he needs to continue dialysis. Patient reports that continues to have a urine output. He has dialysis 530 AM to 830 AM. He understands that he has labs scheduled and wondering if he should skiphis dialysis run to give a more accurate picture of what his labs would be. New pt [facility] lab orders are in place. Advised that we would not advise that he miss a dialysis run, rather work with his unit to reschedule the dialysis. He stated that he has missed before without any issue. Attempting to pull care everywhere for additional records. Sending note to Dr. Angel to advise what may be most helpful to her in this scenario to make a second opinion. FIRST ASSISTANT * Telephone Encounter - Shoshana Harding - 11/02/2023 1:03 PM CST [facility] Phone Message May a detailed message be left on voicemail: yes Reason for Call: Pt calling regarding upcoming appt tomorrow with [facility]. Pt is wanting to know should he still go to his morning dialysis appt tomorrow as well. Please call pt Action Taken: Message routed to: Other: Neph Travel Screening: Not Applicable FIRST ASSISTANT * Addendum Note - Cecille Stauffer RN - 11/02/2023 1:02 PM CSTAddended by: CECILLE STAUFFER on: 11/02/2023 04:01 PM Modules accepted: Orders FIRST ASSISTANT documented in this encounter Plan of Treatment Not on file documented as of this encounter Results * (ABNORMAL) Cystatin C with GFR (11/03/2023 10:30 AM RN FIRST ASSISTANT) Cystatin C 4.3(H) 0.6 - 1.0 mg/L 11/04/2023 3:47 AM RN FIRST ASSISTANT [facility] GFR Calculated with Cystatin C 11(L) >=60 mL/min/1.7 3m2 11/04/2023 3:47 AM RN FIRST ASSISTANT [facility] Blood BLOOD SPECIMEN / Unknown Venipuncture / Unknown 11/03/2023 10:30 AM RN FIRST ASSISTANT 11/03/2023 10:38 AM RN FIRST ASSISTANT Narrative [facility] - 11/04/2023 3:47 AM RN FIRST ASSISTANT eGFRcys in adults is calculated using the 2012 CKD-EPI cystatin c equation which includes age and gender (Land Economist et al., NEJ, DOI: 10.1056/XNXHet1613562) Skyler Angel MD LAB - BLOOD ORDERABL ES [facility] [address] [facility], [address] [place] [address] [phone] documented in this encounter Visit Diagnoses Diagnosis ESRD (end stage renal disease) on dialysis (H)- Primary End stage renal disease documented in this encounter Care Teams President Commercial Bank Relationship Specialty Start Date End Date Skyler Angel MD [address] [place] [address] Internal Medicine 05/14/23 Skyler Angel MD [address] [place] [address] Internal Medicine 06/24/23 documented as of this encounter
--- OUTSIDE RECORDS SUMMARY | 2023-12-15 06:18 | XMS_ITS | Encounter Summary ---
Author Name Unknown Organization [facility] Address [address] [place] [address] Care Team Providers Care Telephone Advice Nurse Name Role Phone Skyler Angel MD Unavailable Skyler Angel MD Unavailable Sugey Washington MD Primary Care Provider [phone] Skyler Angel MD Unavailable Reason for Visit * Reason Comments Consult Self referred sec ond opinion on dialysis Encounter Details Date Type Department Care Team (Late st Contact Info) Description 11/03/2023 11:00 AM EQUIPMENT OPERATION INSTRUCTOR Office Visit [address] [address] Skyler Angel MD [address] [place] [address] CKD (chronic kidney disease) stage 5, GFR less than 15 ml/min (H) (Primary Dx); ESRD (end stage renal disease) on dialysis (H) Social History Tobacco Use Types Packs/Day Years Used Date Smoking Tobacco: Never Smokeless Tobacco: Never Adolescent Education Answer Date Record ed Getting School Help Needed Not on file 06/04 Sex and Gender Information Value Date Recorded Sex Assigned at Not on file Gender Identity Not on file Sexual Orientation Not on file documented as of this encounter Last Filed Vital Signs Vital Sign Reading Time Taken Comments Blood Pressure 163/90 11/03/2023 11:02 AM EQUIPMENT OPERATION INSTRUCTOR Pulse 74 11/03/2023 11:02 AM EQUIPMENT OPERATION INSTRUCTOR Temperature - - Respiratory Rate - - Oxygen Saturation 100% 11/03/2023 11:02 AM EQUIPMENT OPERATION INSTRUCTOR Inhaled Oxygen Concentration - - Weight 73.9 kg (163 lb) 11/03/2023 11:02 AM EQUIPMENT OPERATION INSTRUCTOR Height - - Body Mass Index - - documented in this encounter Patient Instructions * Patient Instructions* Skyler Angel MD - 11/03/2023 11:00 AM EQUIPMENT OPERATION INSTRUCTOR It was a pleasure taking care of you today. I've included a brief summary of our discussion and care plan from today's visit below. Please review this information with your primary care provider. My recommendations are summarized as follows: -Will order a 24 hrs urine collection, to calculate your actual kidney function -Please talk to your dialysis unit to see if you can do dialysis today or ting because of your high potassium -An arterio-venous graft is a good alternative to your catheter. You can use in 2 weeks Who do I call with any questions after my visit? Please be in touch if there are any further questions that arise following today's visit. There aremultiple ways to contact your nephrology care team. During business hours, you may reach your Nephrology Care Team or schedule or reschedule an appointment or lab at [phone]. If you need to schedule imaging, please call . To schedule a COVID test, please call [phone]. You can always send a secure message through scenios. scenios messages are answered by your nurse or doctor typically within 24-48 hours. Please allow extra time on weekends and holidays. For urgent/emergent questions after business hours, you may reach the on-call Nephrology Fellow by contacting the [facility] finishing range operator at . How will I get the results of any tests ordered? You will receive all of your results. If you have signed up for scenios, any tests ordered at your visit will be available to you once resulted on SkillSlatehart. Typically the physician reviews them and may or may not make further recommendations. If there are urgent results that require a change in yourcare plan, your physician or nurse will call you to discuss the next steps. If you are not on MyChart, a letter may be generated and mailed to you with your results. PMENT OPERATION INSTRUCTOR documented in this encounter Progress Notes * Skyler Angel MD - 11/03/2023 11:00 AM CST Self-referred HPI: Rickie Broderick is a 62 year old male who presents for evaluation of whether he can come off dialysis. He is here today with his daughter, Sheeba. He is . He was diagnosed with multiple myeloma in July 2022. He follows with [facility]. He started treatment with CyBorD and received palliative radiation to T3 vertebral body. He is currently on daratumumab once a month. He has been tolerating it very well and he will continue till February 2024 and he will complete 1 year of treatment. The plan at that point is to reassess the need for ongoingmaintenance treatment. He also received dexamethasone together with Daratumumab. He started hemodialysis back in July 2022 when he was diagnosed with multiple myeloma. He has been receiving dialysis on a TTS schedule. He gets dialysis through a right IJ tunneled catheter. He is wondering today whether he can come off dialysis. His last dialysis was on . He missed his dialysis on Thursday because he had to work. He missed his dialysis today Thursday because of this clinic appointment. He is wondering whether he can stop dialysis because he continues to make significant amount of urine. Though, he tells me that his intradialytic weight gain is around 2 kg. He also has hypertension and is on amlodipine. He tells me that his amlodipine dose was cut down to 2.5 mg daily because his blood pressure has been running low and dialysis. Even after skipping 1 session of dialysis, he feels completely well. He has good energy and continues to workout on a daily basis. He denies any lower extremity edema, shortness of breath, weakness, urinary symptoms, gross hematuria, fevers or chills, weight loss. He was evaluated by Dr. Ivana Ambrosio from transplant at [facility] and by Dr. Ward and lidia.They had brought up the possibility of a simultaneous haploidentical stem cell transplant with allograft kidney from his sibling however this procedure was not performed at the [place] and the patient was advised to go to [facility] where small number of this case has been done previously. The patient was also evaluated for a kidney transplant by Dr. Elfego Mcnamara at [facility] who recommended against transplant. Social history: He is . His 12 years ago. He has 2 daughters. One of them is with him today, Sheeba. He has 2 grandsons. At one point early during his multiple myeloma treatment he was living with Sheeba and now he is living on his own. He works in live stock. No Known Allergies acyclovir (ZOVIRAX) 200 MG capsule, Take 200 mg by mouth allopurinol (ZYLOPRIM) 100 MG tablet, 100 mg amLODIPine (NORVASC) 2.5 MG tablet, Take 1 tablet by mouth ASPIRIN 81 PO, Take 1 tablet by mouth daily calcium carbonate-vitamin D (CALTRATE) 600-10 MG-MCG per tablet, [START ON 11/24/2023] xsfnhbreumj-wjfajwctuuprg-thbo (DARZALEX FASPRO) 1800-20721 MG-UT/15ML SUBCUTANEOUS injection, Inject 1,800 mg Subcutaneous dexAMETHasone (DECADRON) 4 MG tablet, Take 12 mg by mouth No current facility-administered medications on file prior to visit. Past Medical History: Diagnosis Date Multiple myeloma in remission (H) History reviewed. No pertinent surgical history. Social History Tobacco Use Smoking status: Never Smokeless tobacco: Never Family History Problem Relation Age of Onset Breast Cancer Sister ROS: A 12 system review of systems was negative other than noted here or above. Exam: BP (!) 163/90 (BP Location: Left arm, Patient Position: Chair, Cuff Size: Adult Regular) Pulse 74 Wt 73.9 kg (163 lb) SpO2 100% BP Readings from Last 6 Encounters: 11/03/23 (!) 163/90 GENERAL APPEARANCE: alert and no distress EYES: PERRL HENT: mouth without ulcers or lesions NECK: supple, no adenopathy RESP: lungs clear to auscultation - no rales, rhonchi or wheezes CV: regular rhythm, normal rate, no rub ABDOMEN: soft, nontender, no HSM or masses and bowel sounds normal MS: extremities normal- no gross deformities noted, no evidence of inflammation in joints, no muscle tenderness SKIN: no rash NEURO: Normal strength and tone, sensory exam grossly normal, mentation intact and speech normal PSYCH: mentation appears normal. and affect normal/bright Results: Reviewed in details with the patient and his daughter Assessment/Plan: Problem #1 multiple myeloma Problem #2 end-stage renal disease on hemodialysis Problem #3 right IJ tunneled catheter of 2 years duration Problem #4 hypertension As per oncology, Rickie remains in good remission from his myeloma with VPGR. [place] lambda ratio was3.83 and his M spike is only 0.1g/dl. He will be on maintenance daratumumab till February, when he willundergo reevaluation of his disease process with a repeat PET scan and bone marrow biopsy. He has been evaluated at the [facility] and at [facility] who recommended against kidney transplant [though the patient has an understanding that if he remains in remission till summer then he will go for a kidney transplant]. His main concern today is whether he can come off dialysis given that he feels well and he continues to make significant amount of urine. Today in clinic he feels well with good energy but his GFR isat 7 ml/min by creatinine-estimated GFR and at 11 mL/min by cystatin-estimated GFR. His potassium is 5.7 after missing 1 session of dialysis. He looks euvolemic on exam. His hemoglobin is 11.7 g/dL and he is not receiving any erythropoietin stimulating agents. I informed the patient today that based on his numbers, he will NOT be able to come off dialysis but he might be able to reduce the frequency of dialysis to twice weekly if his 24-hour urine collection proves a residual kidney function of>=5 mL/min. - He was instructed to do a 24-hour urine collection on a Thursday to calculate his actual creatinine/Urea clearance. If his clearance is more than 5 mL/min then his dialysis frequency can be reduced to twice a week. -As far as his access is concerned, I suggested to him that an AV graft is a much better alternative than a tunneled catheter in terms of infection. Besides an AV graft can be used in 2 weeks after surgery as compared to an AV fistula which usually requires 8 to 12 weeks to mature. -As per hypertension, his blood pressure in clinic is slightly elevated however his amlodipine was recently reduced to 2.5 mg. I asked him to monitor his blood pressure at home for the time being with no changes in his medications. Addendum 11/27/2023: His 24-hour urine collection showed that his residual renal function is more than 4 mL/min. Given his well-controlled volume status as well as his potassium in spite of missing 2 dialysis sessions and his current urine study showing a residual kidney volume of more than 4 mL/min, I think he could be managed with twice weekly dialysis. This was communicated with the patient. *This dictation was prepared in part using [employer] recognition software. As a result errors may occur. When identified these cutter machine tender errors have been corrected. While every attempt is made to correct errors during dictation, errors may still exist. Skyler Angel MD [facility] Department of Medicine Division of Renal Disease and Hypertension documented in this encounter Nursing Notes * Chata Blevins CMA - 11/03/2023 11:00 AM CST Rickie Broderick's goals for this visit include: Chief Complaint Patient presents with Consult Self referred second opinion on dialysis He requests these members of his care team be copied on today's visit information: yes PCP: Sugey Washington Referring Provider: Referred SelfMD No address on file BP (!) 163/90 (BP Location: Left arm, Patient Position: Chair, Cuff Size: Adult Regular) Pulse 74 Wt 73.9 kg (163 lb) SpO2 100% Do you need any medication refills at today's visit? No IDRIS [place] Neph/Pulm [facility] PMENT OPERATION INSTRUCTOR documented in this encounter Miscellaneous Notes * Addendum Note - Naye Carney - 11/03/2023 11:00 AM CSTAddended by: NAYE CARNEY on: 11/10/2023 11:11 AM Modules accepted: Orders PMENT OPERATION INSTRUCTOR documented in this encounter Plan of Treatment Not on file documented as of this encounter Procedures Procedure Name Priority Date/Time Associated Diagnosis Comments CREATININE TIMED URINE Routine 11/09/2023 5:30 AM EQUIPMENT OPERATION INSTRUCTOR CKD (chronic kidney disease) stage 5, GFR less than 15 ml/min (H) ESRD (end stage renal disease) on dialysis (H) documented in this encounter Results * (ABNORMAL) Urea nitrogen timed urine (11/10/2023 11:03 AM EQUIPMENT OPERATION INSTRUCTOR) Urea Nitrogen Urine mg/dL 187.0(L) 801.0 - 1,666.0 mg/dL 11/11/2023 2:14 AM EQUIPMENT OPERATION INSTRUCTOR [facility] Urea Nitrogen Urine g/spec 4(L) 12 - 20 g/spec 11/11/2023 2:14 AM EQUIPMENT OPERATION INSTRUCTOR [facility] Duration in hours 24.0 h TY 11/11/2023 2:14 AM EQUIPMENT OPERATION INSTRUCTOR [facility] Volume in mL 1,975 mL TY 11/11/2023 2:14 AM EQUIPMENT OPERATION INSTRUCTOR [facility] Urine URINE SPECIMEN / Unknown Non-blood Collection / Unknown 11/10/2023 11:03 AM EQUIPMENT OPERATION INSTRUCTOR 11/10/2023 11:04 AM EQUIPMENT OPERATION INSTRUCTOR Skyler Angel MD LAB - URINE ORDERABL ES [facility] Core Lab [address] [facility], [address] [address] [phone] * (ABNORMAL) Creatinine timed urine (11/09/2023 5:30 AM EQUIPMENT OPERATION INSTRUCTOR) Creatinine Urine mg/dL 43.6 mg/dL 11/11/2023 1:04 AM EQUIPMENT OPERATION INSTRUCTOR [facility] Comment:The reference ranges have not been established in urine creatinine. The results should be integrated into the clinical context for interpretation. Duration in hours 24.0 h TY 11/11/2023 1:04 AM EQUIPMENT OPERATION INSTRUCTOR [facility] Volume in mL 1,975 mL [facility] 11/11/2023 1:04 AM EQUIPMENT OPERATION INSTRUCTOR [facility] Creatinine Urine Timed g/spec 0.86(L) 0.98 - 2.20 g/spec 11/11/2023 1:04 AM EQUIPMENT OPERATION INSTRUCTOR [facility] Urine URINE SPECIMEN / Unknown Non-blood Collection / Unknown 11/09/2023 5:30 AM EQUIPMENT OPERATION INSTRUCTOR 11/10/2023 11:11 AM EQUIPMENT OPERATION INSTRUCTOR Skyler Angel MD LAB - URINE ORDERABL ES [facility] [place] [facility] [address] [facility], [address] [place] [address], [facility] [phone] documented in this encounter Visit Diagnoses Diagnosis CKD (chronic kidney disease) stage 5, GFR less than 15 ml/min (H)- Primary Chronic kidney disease, Stage V ESRD (end stage renal disease) on dialysis (H) End stage renal disease documented in this encounter Care Teams Telephone Advice Nurse Relationship Specialty Start Date End Date Sugey Washington MD [address] [address] PCP - General Family Medicine 11/03/23 Skyler Angel MD [address] [place] [address] MD Internal Medicine 05/14/23 Skyler Angel MD [address] [place] [address] Internal Medicine 06/24/23 Skyler Angel MD [address] [place] [address] Assigned Nephrology Provider 11/20/23 documented as of this encounter
--- OUTSIDE RECORDS SUMMARY | 2023-12-15 06:18 | XMS_ITS | Encounter Summary ---
Author Name Unknown Organization [facility] Address [address] [place] [address] Care Team Providers Care Labor Standards Director Name Role Phone Skyler Angel MD Unavailable Skyler Angel MD Unavailable Sugey Washington MD Primary Care Provider [phone] Encounter Details Date Type Department Care Team (Late st Contact Info) Description 11/03/2023 10:30 AM [facility] [id number] [place] [id number] Acute renal failure superimposed on chronic kidney disease (H24); ESRD (end stage renal disease) on dialysis (H); CKD (chronic kidney disease) stage 5, GFR less than 15 ml/min (H) Social History Tobacco Use Types Packs/Day Years Used Date Smoking Tobacco: Never Smokeless Tobacco: Never Adolescent Education Answer Date Record ed Getting School Help Needed Not on file 06/04 Sex and Gender Information Value Date Recorded Sex Assigned at Not on file Gender Identity Not on file Sexual Orientation Not on file documented as of this encounter Plan of Treatment Not on file documented as of this encounter Procedures Procedure Name Priority Date/Time Associated Diagnosis Comments UREA NITROGEN TIMED URINE Routine 11/10/2023 11:03 AM [employer]ICULTURE TE[employer]ER CKD (chronic kidney disease) stage 5, GFR less than 15 ml/min (H) VITAMIN D DEFICIENCY SCREENING Routine 11/03/2023 10:30 AM [employer]ICULTURE TEACHER Acute renal failure superimposed on chronic kidney disease (H24) ROUTINE UA WITH MICROSCOPIC Routine 11/03/2023 10:30 AM V[employer]ULTURE TE[employer]ER Acute renal failure superimposed on chronic kidney disease (H24) RENAL PANEL Routine 11/03/2023 10:30 AM V[employer]ICULTURE TEACHER Acute renal failure superimposed on chronic kidney disease (H24) PROTEIN RANDOM URINE Routine 11/03/2023 10:30 AM V[employer]ICULTURE TEACHER Acute renal failure superimposed on chronic kidney disease (H24) PARATHYROID HORMONE INTACT Routine 11/03/2023 10:30 AM V[employer]ICULTURE TEACHER Acute renal failure superimposed on chronic kidney disease (H24) URINE MICROSCOPIC EXAM Routine 11/03/2023 10:30 AM V[employer]ICULTURE TEACHER Acute renal failure superimposed on chronic kidney disease (H24) ALBUMIN RANDOM URINE QUANTITATIVE Routine 11/03/2023 10:30 AM V[employer]ICULTURE TEACHER Acute renal failure superimposed on chronic kidney disease (H24) CYSTATIN C WITH GFR Routine 11/03/2023 1 0:30 AM V[employer]ICULTURE TEACHER ESRD (end stage renal disease) on dialysis (H) CBC WITH PLATELETS Routine 11/03/2023 10 :30 AM V[employer]ICULTURE TEACHER Acute renal failure superimposed on chronic kidney disease (H24) documented in this encounter Results * (ABNORMAL) Urea nitrogen timed urine (11/10/2023 11:03 AM VITICULTURE TEACHER) Urea Nitrogen Urine mg/dL 187.0(L) 801.0 - 1,666.0 mg/dL 11/11/2023 2:14 AM VITICULTURE TEACHER [facility] Urea Nitrogen Urine g/spec 4(L) 12 - 20 g/spec 11/11/2023 2:14 AM VITICULTURE TEACHER [facility] Duration in hours 24.0 h TY 11/11/2023 2:14 AM VITICULTURE TEACHER [facility] Volume in mL 1,975 mL TY 11/11/2023 2:14 AM VITICULTURE TEACHER [facility] Urine URINE SPECIMEN / Unknown Non-blood Collection / Unknown 11/10/2023 11:03 AM VITICULTURE TEACHER 11/10/2023 11:04 AM VITICULTURE TEACHER Skyler Angel MD LAB - URINE ORDERABL ES [facility] [address] [facility], [address] [place] [address], [facility] [phone] * Urine Microscopic Exam (11/03/2023 10:30 AM VITICULTURE TEACHER) RBC Urine None Seen 0-2 /HPF /HPF TY 11/03/2023 10:58 AM VITICULTURE TEACHER [facility] WBC Urine None Seen 0-5 /HPF /HPF TY 11/03/2023 10:58 AM VITICULTURE TEACHER [facility] Urine URINE SPECIMEN OBTAINED BY CLEAN CATCH PROCEDURE / Unknown Non-blood Collection / Unknown 11/03/2023 10:30 AM VITICULTURE TEACHER 11/03/2023 10:39 AM VITICULTURE TEACHER Skyler Angel MD LAB - URINE ORDERABL ES Performing Organization Address City/[facility] [address]/ZIP Co de Phone Number [facility] [address] [address], [facility] [phone] * (ABNORMAL) Cystatin C with GFR (11/03/2023 10:30 AM VITICULTURE TEACHER) Cystatin C 4.3(H) 0.6 - 1.0 mg/L 11/04/2023 3:47 AM VITICULTURE TEACHER [facility] GFR Calculated with Cystatin C 11(L) >=60 mL/min/1.7 3m2 11/04/2023 3:47 AM VITICULTURE TEACHER [facility] Blood BLOOD SPECIMEN / Unknown Venipuncture / Unknown 11/03/2023 10:30 AM VITICULTURE TEACHER 11/03/2023 10:38 AM VITICULTURE TEACHER Narrative [facility] - 11/04/2023 3:47 AM VITICULTURE TEACHER eGFRcys in adults is calculated using the 2012 CKD-EPI cystatin c equation which includes age and gender (Haseeb et al., NEJM, DOI: 10.1056/VCNBwt4453287) Skyler Angel MD LAB - BLOOD ORDERABL ES [facility] [address] [facility], [address] [address], [facility] [phone] * Vitamin D Deficiency (11/03/2023 10:30 AM VITICULTURE TEACHER) Vitamin D, Total (25-Hydroxy) 48 20 - 50 ng/mL 11/04/2023 3:47 AM VITICULTURE TEACHER [facility] Comment:optimum levels Blood BLOOD SPECIMEN / Unknown Venipuncture / Unknown 11/03/2023 10:30 AM VITICULTURE TEACHER 11/03/2023 10:38 AM VITICULTURE TEACHER Narrative [facility] - 11/04/2023 3:47 AM VITICULTURE TEACHER Season, race, dietary intake, and treatment affect the concentration of 14-ridnvjq-Dskeifc D. Values may decrease during winter months and increase during summer months. Vitamin D determination is routinely performed by an immunoassay specific for 25 hydroxyvitamin D3. ??If an individual is on vitamin D2(ergocalciferol) supplementation, please specify 25 OH vitamin D2 and D3 level determination by LCMSMS test VITD23. Skyler Angel MD LAB - BLOOD ORDERABL ES [facility] [address] [facility], [address] [address], [facility] [phone] * (ABNORMAL) UA with Microscopic (11/03/2023 10:30 AM VITICULTURE TEACHER) Color Urine Colorless Colorless, Straw, Light Yellow, Yellow 11/03/2023 10:46 AM VITICULTURE TEACHER [facility] Appearance Urine Clear Clear 11/03/19 24 10:46 AM VITICULTURE TEACHER [facility] Glucose Urine 200(A) Negative mg/dL 11/03/2023 10:46 AM VITICULTURE TEACHER [facility] Bilirubin Urine Negative Negative 4 10:46 AM VITICULTURE TEACHER [facility] Ketones Urine Negative Negative mg/dL 11/03/2023 10:46 AM VITICULTURE TEACHER [facility] Specific [place] Urine 1.008 0.999 - 1.035 11/03/2023 10:46 AM VITICULTURE TEACHER [facility] Blood Urine Negative Negative 11/03/2023 10:46 AM VITICULTURE TEACHER [facility] pH Urine 7.5(H) 5.0 - 7.0 11/03/2023 10:46 AM VITICULTURE TEACHER [facility] Protein Albumin Urine 20(A) Negative mg/dL 11/03/2023 10:46 AM VITICULTURE TEACHER [facility] Urobilinogen Urine Normal Normal, 2.0 mg/dL 11/03/2023 10:46 AM VITICULTURE TEACHER [facility] Nitrite Urine Negative Negative 11/03/2023 10:46 AM VITICULTURE TEACHER [facility] Leukocyte Esterase Urine Negative Negative 11/03/2023 10:46 AM VITICULTURE TEACHER [facility] SKIP 11/03/2023 10:46 AM VITICULTURE TEACHER [facility] Urine URINE SPECIMEN OBTAINED BY CLEAN CATCH PROCEDURE / Unknown Non-blood Collection / Unknown 11/03/2023 10:30 AM VITICULTURE TEACHER 11/03/2023 10:39 AM VITICULTURE TEACHER Skyler Angel MD LAB - URINE ORDERABL ES [facility] [address] [address], [facility] [phone] * (ABNORMAL) Renal panel (11/03/2023 10:30 AM VITICULTURE TEACHER) Pathologist [facility] Sodium 137 135 - 145 mmol/L 11/03/2023 11:12 AM VITICULTURE TEACHER [facility] Comment:Reference intervals for this test were updated on 06/02/2023 to more accurately reflect our healthy population. There may be differences in the flagging of prior results with similar values performed with this method. Interpretation of those prior results can be made in the context of the updated reference intervals. Potassium 5.7(H) 3.4 - 5.3 mmol/L 11/03/2023 11:12 AM VITICULTURE TEACHER [facility] Chloride 106 98 - 107 mmol/L 11/03/2023 11:12 AM VITICULTURE TEACHER [facility] Carbon Dioxide (CO2) 14(L) 22 - 29 mmol/L 11/03/2023 11:12 AM VITICULTURE TEACHER [facility] Anion Gap 17(H) 7 - 15 mmol/L 11/03/2023 11:12 AM VITICULTURE TEACHER [facility] Glucose 90 70 - 99 mg/dL 11/03/2023 11:12 AM VITICULTURE TEACHER [facility] Urea Nitrogen 61.7(H) 8.0 - 23.0 mg/dL 11/03/2023 11:12 AM VITICULTURE TEACHER [facility] Creatinine 8.16(H) 0.67 - 1.17 mg/dL 11/03/2023 11:12 AM VITICULTURE TEACHER [facility] GFR Estimate 7(L) >60 mL/min/1. 73m2 11/03/2023 11:12 AM VITICULTURE TEACHER [facility] Calcium 8.9 8.8 - 10.2 mg/dL 11/03/2023 11:12 AM VITICULTURE TEACHER [facility] Albumin 4.4 3.5 - 5.2 g/dL 11/03/2023 11:12 AM VITICULTURE TEACHER [facility] Phosphorus 5.5(H) 2.5 - 4.5 mg/dL 11/03/2023 11:12 AM VITICULTURE TEACHER [facility] Blood BLOOD SPECIMEN / Unknown Venipuncture / Unknown 11/03/2023 10:30 AM VITICULTURE TEACHER 11/03/2023 10:38 AM VITICULTURE TEACHER Skyler Angel MD LAB - BLOOD ORDERABL [facility] [address], [place] [address], [facility] [phone] * (ABNORMAL) Protein random urine (11/03/2023 10:30 AM VITICULTURE TEACHER) Total Protein Urine mg/dL 9.4 mg/dL 11/03/2023 11:15 AM VITICULTURE TEACHER [facility] Comment:The reference ranges have not been established in urine protein. The results should be integrated into the clinical context for interpretation. Total Protein Urine mg/mg Creat 0.24(H) 0.00 - 0.20 mg/mg Cr 11/03/2023 11:15 AM VITICULTURE TEACHER [facility] Creatinine Urine mg/dL 38.7 mg/dL 11/03/2023 11:15 AM VITICULTURE TEACHER [facility] Comment:The reference ranges have not been established in urine creatinine. The results should be integrated into the clinical context for interpretation. Urine URINE SPECIMEN OBTAINED BY CLEAN CATCH PROCEDURE / Unknown Non-blood Collection / Unknown 11/03/2023 10:30 AM VITICULTURE TEACHER 11/03/2023 10:39 AM VITICULTURE TEACHER Skyler Angel MD LAB - URINE ORDERABL ES [facility] - [address], [place] [address], [facility] [phone] * (ABNORMAL) Parathyroid Hormone Intact (11/03/2023 10:30 AM VITICULTURE TEACHER) Pathologist [facility] Parathyroid Hormone Intact 143(H) 15 - 65 pg/mL 11/03/2023 2:48 PM VITICULTURE TEACHER [facility] Blood BLOOD SPECIMEN / Unknown Venipuncture / Unknown 11/03/2023 10:30 AM VITICULTURE TEACHER 11/03/2023 10:38 AM VITICULTURE TEACHER Narrative [facility] - 11/03/2023 2:48 PM VITICULTURE TEACHER This result was obtained with the [employer] PTH STAT assay. This reference range differs from PTH assays used in other [facility] laboratories. Skyler Angel MD LAB - BLOOD ORDERABL ES [facility] [address] [facility], [address] [place] [address], [place] [phone] * (ABNORMAL) CBC with platelets (11/03/2023 10:30 AM VITICULTURE TEACHER) WBC Count 4.2 4.0 - 11.0 10e3/uL 11/03/2023 10:46 AM VITICULTURE TEACHER [facility] RBC Count 3.22(L) 4.40 - 5.90 10e6/uL 11/03/2023 10:46 AM VITICULTURE TEACHER [facility] Hemoglobin 11.7(L) 13.3 - 17.7 g/dL 11/03/2023 10:46 AM VITICULTURE TEACHER [facility] Hematocrit 34.7(L) 40.0 - 53.0 % 11/03/2023 10:46 AM VITICULTURE TEACHER [facility] MCV 108(H) 78 - 100 fL 11/03/2023 10:46 AM VITICULTURE TEACHER [facility] MCH 36.3(H) 26.5 - 33.0 pg 11/03/2023 10:46 AM VITICULTURE TEACHER [facility] MCHC 33.7 31.5 - 36.5 g/dL 11/03/2023 10:46 AM VITICULTURE TEACHER [facility] RDW 12.1 10.0 - 15.0 % 11/03/2023 10:46 AM VITICULTURE TEACHER [facility] Platelet Count 179 150 - 450 10e3/uL 11/03/2023 10:46 AM VITICULTURE TEACHER [facility] Blood BLOOD SPECIMEN / Unknown Venipuncture / Unknown 11/03/2023 10:30 AM VITICULTURE TEACHER 11/03/2023 10:38 AM VITICULTURE TEACHER Skyler Angel MD LAB - BLOOD ORDERABL ES [facility] [address], [place] [address], [facility] [phone] * (ABNORMAL) Albumin Random Urine Quantitative with Creat Ratio (11/03/2023 10:30 AM VITICULTURE TEACHER) Creatinine Urine mg/dL 36.9 mg/dL 11/03/2023 2:47 PM VITICULTURE TEACHER [facility] Comment:The reference ranges have not been established in urine creatinine. The results should be integrated into the clinical context for interpretation. Albumin Urine mg/L 14.1 mg/L 2023 2:47 PM VITICULTURE TEACHER [facility] Comment:The reference ranges have not been established in urine albumin. The results should be integrated into the clinical context for interpretation. Albumin Urine mg/g Cr 38.21(H) 0.00 - 17.00 mg/g Cr 11/03/2023 2:47 PM VITICULTURE TEACHER [facility] Comment: Microalbuminuria is defined as an albumin:creatinine ratio of 17 to 299 for males and 25 to 299 for females. A ratio of albumin:creatinine of 300 or higher is indicative of overt proteinuria. Due to biologic variability, positive results should be confirmed by a second, first-morning random or 24-hour timed urine specimen. If there is discrepancy, a third specimen is recommended. When 2 out of 3 results are in the microalbuminuria range, this is evidence for incipient nephropathy and warrants increased efforts at glucose control, blood pressure control, and institution of therapy with an [id number]-fxcjtm (MATA) inhibitor (if the patient can tolerate it). ?? Urine URINE SPECIMEN OBTAINED BY CLEAN CATCH PROCEDURE / Unknown Non-blood Collection / Unknown 11/03/2023 10:30 AM VITICULTURE TEACHER 11/03/2023 10:39 AM VITICULTURE TEACHER Skyler Angel MD LAB - URINE ORDERABL ES [facility] [address] [facility], [address] [place] [address], [facility] [phone] documented in this encounter Visit Diagnoses Diagnosis Acute renal failure superimposed on chronic kidney disease (H24) ESRD (end stage renal disease) on dialysis (H) End stage renal disease CKD (chronic kidney disease) stage 5, GFR less than 15 ml/min (H) Chronic kidney disease, Stage V documented in this encounter Care Teams Labor Standards Director Relationship Specialty Start Date End Date Sugey Washington MD [address] [address] PCP - General Family Medicine 11/03/23 Skyler Angel MD [address] [place] [address] MD Internal Medicine 05/14/23 Skyler Angel MD [address] [place] [address] MD Internal Medicine 06/24/23 documented as of this encounter
--- OUTSIDE RECORDS SUMMARY | 2023-12-15 06:18 | XMS_ITS | Referral Summary ---
Author Name Unknown Organization [place] Address [address] [place] [address] Care Team Providers Care Film Numberer Name Role Phone Skyler Angel MD Unavailable Skyler Angel MD Unavailable Sugey Washington MD Primary Care Provider + [phone] Skyler Angel MD Unavailable Encounters Date Type Department Care Team Description 11/03/2023 Travel 11/03/2023 10:30 AM PHARMACEUTICAL OFFICER Lab [facility] [address] [place] [phone] Acute renal failure superimposed on chronic kidney disease (H24); ESRD (end stage renal disease) on dialysis (H); CKD (chronic kidney disease) stage 5, GFR less than 15 ml/min (H) 11/03/2023 11:00 AM PHARMACEUTICAL OFFICER Office Visit [address] [phone] Skyler Angel MD CKD (chronic kidney disease) stage 5, GFR less than 15 ml/min (H) (Primary Dx); ESRD (end stage renal disease) on dialysis (H) 11/02/[address] [phone] Skyler Angel MD Patient Request 10/28/2023 Telephone [facility] [id number] [place] [phone] Skyler Angel MD Appointment (Lab appt needed) from Last 3 Months Allergies No known active allergies Medications Medication Sig Dispensed Refills Start Date End Date Status calcium carbonate-vitamin D (CALTRATE) 600-10 MG-MCG per tablet 0 12/30/2022 Active acyclovir (ZOVIRAX) 200 MG capsule Take 200 mg by mouth 0 03/02/2023 Active ASPIRIN 81 PO Take 1 tablet by mouth daily 0 Active allopurinol (ZYLOPRIM) 100 MG tablet 100 mg 0 08/01/2022 Active dexAMETHasone (DECADRON) 4 MG tablet Take 12 mg by mouth 0 08/06/2022 Activ e amLODIPine (NORVASC) 2.5 MG tablet Take 1 tablet by mouth 0 09/01/2023 Active daratumumab-hyaluron idase-fihj (DARZALEX FASPRO) 1800-57437 MG-UT/15ML SUBCUTANEOUS injection Inject 1,800 mg Subcutaneous 0 11/24/2023 Active Social History Tobacco Use Types Packs/Day Years Used Date Smoking Tobacco: Never Smokeless Tobacco: Never Adolescent Education Answer Date Record ed Getting School Help Needed Not on file 06/04 Sex and Gender Information Value Date Recorded Sex Assigned at Not on file Gender Identity Not on file Sexual Orientation Not on file Last Filed Vital Signs Vital Sign Reading Time Taken Comments Blood Pressure 163/90 11/03/2023 11:02 AM PHARMACEUTICAL OFFICER Pulse 74 11/03/2023 11:02 AM PHARMACEUTICAL OFFICER Temperature - - Respiratory Rate - - Oxygen Saturation 100% 11/03/2023 11:02 AM PHARMACEUTICAL OFFICER Inhaled Oxygen Concentration - - Weight 73.9 kg (163 lb) 11/03/2023 11:02 AM PHARMACEUTICAL OFFICER Height - - Body Mass Index - - Plan of Treatment Not on file Procedures Procedure Name Priority Date/Time Associated Diagnosis Comments UREA NITROGEN TIMED URINE Routine 11/10/2023 11:03 AM PHARMACEUTICAL OFFICER CKD (chronic kidney disease) stage 5, GFR less than 15 ml/min (H) CREATININE TIMED URINE Routine 11/09/2023 5:30 AM PHARMACEUTICAL OFFICER CKD (chronic kidney disease) stage 5, GFR less than 15 ml/min (H) ESRD (end stage renal disease) on dialysis (H) URINE MICROSCOPIC EXAM Routine 11/03/2023 10:30 AM PHARMACEUTICAL OFFICER Acute renal failure superimposed on chronic kidney disease (H24) CYSTATIN C WITH GFR Routine 11/03/2023 1 0:30 AM PHARMACEUTICAL OFFICER ESRD (end stage renal disease) on dialysis (H) VITAMIN D DEFICIENCY SCREENING Routine 11/03/2023 10:30 AM PHARMACEUTICAL OFFICER Acute renal failure superimposed on chronic kidney disease (H24) ROUTINE UA WITH MICROSCOPIC Routine 11/03/2023 10:30 AM PHARMACEUTICAL OFFICER Acute renal failure superimposed on chronic kidney disease (H24) RENAL PANEL Routine 11/03/2023 10:30 AM PHARMACEUTICAL OFFICER Acute renal failure superimposed on chronic kidney disease (H24) PROTEIN RANDOM URINE Routine 11/03/2023 10:30 AM PHARMACEUTICAL OFFICER Acute renal failure superimposed on chronic kidney disease (H24) PARATHYROID HORMONE INTACT Routine 11/03/2023 10:30 AM PHARMACEUTICAL OFFICER Acute renal failure superimposed on chronic kidney disease (H24) CBC WITH PLATELETS Routine 11/03/2023 10 :30 AM PHARMACEUTICAL OFFICER Acute renal failure superimposed on chronic kidney disease (H24) ALBUMIN RANDOM URINE QUANTITATIVE Routine 11/03/2023 10:30 AM PHARMACEUTICAL OFFICER Acute renal failure superimposed on chronic kidney disease (H24) from Last 3 Months Results * (ABNORMAL) Urea nitrogen timed urine (11/10/2023 11:03 AM PHARMACEUTICAL OFFICER) Urea Nitrogen Urine mg/dL 187.0(L) 801.0 - 1,666.0 mg/dL 11/11/2023 2:14 AM PHARMACEUTICAL OFFICER [facility] Urea Nitrogen Urine g/spec 4(L) 12 - 20 g/spec 11/11/2023 2:14 AM PHARMACEUTICAL OFFICER [facility] Duration in hours 24.0 h TY 11/11/2023 2:14 AM PHARMACEUTICAL OFFICER [facility] Volume in mL 1,975 mL [facility] 11/11/2023 2:14 AM PHARMACEUTICAL OFFICER [facility] Urine URINE SPECIMEN / Unknown Non-blood Collection / Unknown 11/10/2023 11:03 AM PHARMACEUTICAL OFFICER 11/10/2023 11:04 AM PHARMACEUTICAL OFFICER Skyler Angel MD LAB - URINE ORDERABL ES [facility] [address] [facility], [address] [place] [phone], [facility] [phone] * (ABNORMAL) Creatinine timed urine (11/09/2023 5:30 AM PHARMACEUTICAL OFFICER) Creatinine Urine mg/dL 43.6 mg/dL 11/11/2023 1:04 AM PHARMACEUTICAL OFFICER [facility] Comment:The reference ranges have not been established in urine creatinine. The results should be integrated into the clinical context for interpretation. Duration in hours 24.0 h TY 11/11/2023 1:04 AM PHARMACEUTICAL OFFICER [facility] Volume in mL 1,975 mL TY 11/11/2023 1:04 AM PHARMACEUTICAL OFFICER [facility] Creatinine Urine Timed g/spec 0.86(L) 0.98 - 2.20 g/spec 11/11/2023 1:04 AM PHARMACEUTICAL OFFICER [facility] Urine URINE SPECIMEN / Unknown Non-blood Collection / Unknown 11/09/2023 5:30 AM PHARMACEUTICAL OFFICER 11/10/2023 11:11 AM PHARMACEUTICAL OFFICER Skyler Angel MD LAB - URINE ORDERABL ES [facility] [place] [address] [facility], [address] [place] [phone], [facility] [phone] * Vitamin D Deficiency (11/03/2023 10:30 AM PHARMACEUTICAL OFFICER) Vitamin D, Total (25-Hydroxy) 48 20 - 50 ng/mL 11/04/2023 3:47 AM PHARMACEUTICAL OFFICER [facility] Comment:optimum levels Blood BLOOD SPECIMEN / Unknown Venipuncture / Unknown 11/03/2023 10:30 AM PHARMACEUTICAL OFFICER 11/03/2023 10:38 AM PHARMACEUTICAL OFFICER Narrative [facility] - 11/04/2023 3:47 AM PHARMACEUTICAL OFFICER Season, race, dietary intake, and treatment affect the concentration of 69-fprzsun-Bfccgmo D. Values may decrease during winter months and increase during summer months. Vitamin D determination is routinely performed by an immunoassay specific for 25 hydroxyvitamin D3. ??If an individual is on vitamin D2(ergocalciferol) supplementation, please specify 25 [place] vitamin D2 and D3 level determination by LCMSMS test VITD23. Skyler Angel MD LAB - BLOOD ORDERABL ES [facility] [place] [address] [facility], [address] [place] [phone], [facility] [phone] * (ABNORMAL) UA with Microscopic (11/03/2023 10:30 AM PHARMACEUTICAL OFFICER) Color Urine Colorless Colorless, Straw, Light Yellow, Yellow 11/03/2023 10:46 AM PHARMACEUTICAL OFFICER [facility] Appearance Urine Clear Clear 11/03/19 24 10:46 AM PHARMACEUTICAL OFFICER [facility] Glucose Urine 200(A) Negative mg/dL 11/03/2023 10:46 AM PHARMACEUTICAL OFFICER [facility] Bilirubin Urine Negative Negative 10:46 AM PHARMACEUTICAL OFFICER [facility] Ketones Urine Negative Negative mg/dL 11/03/2023 10:46 AM PHARMACEUTICAL OFFICER [facility] Specific Lefors Urine 1.008 0.999 - 1.035 11/03/2023 10:46 AM PHARMACEUTICAL OFFICER [facility] Blood Urine Negative Negative 11/03/2023 10:46 AM PHARMACEUTICAL OFFICER [facility] pH Urine 7.5(H) 5.0 - 7.0 11/03/2023 10:46 AM PHARMACEUTICAL OFFICER [facility] Protein Albumin Urine 20(A) Negative mg/dL 11/03/2023 10:46 AM PHARMACEUTICAL OFFICER [facility] Urobilinogen Urine Normal Normal, 2.0 mg/dL 11/03/2023 10:46 AM PHARMACEUTICAL OFFICER [facility] Nitrite Urine Negative Negative 11/03/2023 10:46 AM PHARMACEUTICAL OFFICER [facility] Leukocyte Esterase Urine Negative Negative 11/03/2023 10:46 AM PHARMACEUTICAL OFFICER [facility] SKIP 11/03/2023 10:46 AM PHARMACEUTICAL OFFICER [facility] Urine URINE SPECIMEN OBTAINED BY CLEAN CATCH PROCEDURE / Unknown Non-blood Collection / Unknown 11/03/2023 10:30 AM PHARMACEUTICAL OFFICER 11/03/2023 10:39 AM PHARMACEUTICAL OFFICER Skyler Angel MD LAB - URINE ORDERABL ES [facility] [address] [place] [address], [place] [address], [facility] [phone] * (ABNORMAL) Renal panel (11/03/2023 10:30 AM PHARMACEUTICAL OFFICER) Sodium 137 135 - 145 mmol/L 11/03/2023 11:12 AM PHARMACEUTICAL OFFICER [facility] Comment:Reference intervals for this test were updated on 06/02/2023 to more accurately reflect our healthy population. There may be differences in the flagging of prior results with similar values performed with this method. Interpretation of those prior results can be made in the context of the updated reference intervals. Potassium 5.7(H) 3.4 - 5.3 mmol/L 11/03/2023 11:12 AM PHARMACEUTICAL OFFICER [facility] Chloride 106 98 - 107 mmol/L 11/03/2023 11:12 AM PHARMACEUTICAL OFFICER [facility] Carbon Dioxide (CO2) 14(L) 22 - 29 mmol/L 11/03/2023 11:12 AM PHARMACEUTICAL OFFICER [facility] Anion Gap 17(H) 7 - 15 mmol/L 11/03/2023 11:12 AM PHARMACEUTICAL OFFICER [facility] Glucose 90 70 - 99 mg/dL 11/03/2023 11:12 AM PHARMACEUTICAL OFFICER [facility] Urea Nitrogen 61.7(H) 8.0 - 23.0 mg/dL 11/03/2023 11:12 AM PHARMACEUTICAL OFFICER [facility] Creatinine 8.16(H) 0.67 - 1.17 mg/dL 11/03/2023 11:12 AM PHARMACEUTICAL OFFICER [facility] GFR Estimate 7(L) >60 mL/min/1. 73m2 11/03/2023 11:12 AM PHARMACEUTICAL OFFICER [facility] Calcium 8.9 8.8 - 10.2 mg/dL 11/03/2023 11:12 AM PHARMACEUTICAL OFFICER [facility] Albumin 4.4 3.5 - 5.2 g/dL 11/03/2023 11:12 AM PHARMACEUTICAL OFFICER [facility] Phosphorus 5.5(H) 2.5 - 4.5 mg/dL 11/03/2023 11:12 AM PHARMACEUTICAL OFFICER [facility] Blood BLOOD SPECIMEN / Unknown Venipuncture / Unknown 11/03/2023 10:30 AM PHARMACEUTICAL OFFICER 11/03/2023 10:38 AM PHARMACEUTICAL OFFICER Skyler Angel MD LAB - BLOOD ORDERABL ES Performing Organization Address [facility] de Phone Number LABORATORY [address] [place] [address], [facility] [phone] * (ABNORMAL) Protein random urine (11/03/2023 10:30 AM PHARMACEUTICAL OFFICER) Total Protein Urine mg/dL 9.4 mg/dL 11/03/2023 11:15 AM PHARMACEUTICAL OFFICER [facility] Comment:The reference ranges have not been established in urine protein. The results should be integrated into the clinical context for interpretation. Total Protein Urine mg/mg Creat 0.24(H) 0.00 - 0.20 mg/mg Cr 11/03/2023 11:15 AM PHARMACEUTICAL OFFICER [facility] Creatinine Urine mg/dL 38.7 mg/dL 11/03/2023 11:15 AM PHARMACEUTICAL OFFICER [facility] Comment:The reference ranges have not been established in urine creatinine. The results should be integrated into the clinical context for interpretation. Urine URINE SPECIMEN OBTAINED BY CLEAN CATCH PROCEDURE / Unknown Non-blood Collection / Unknown 11/03/2023 10:30 AM PHARMACEUTICAL OFFICER 11/03/2023 10:39 AM PHARMACEUTICAL OFFICER Skyler Angel MD LAB - URINE ORDERABL ES Performing Organization Address [facility] de Phone Number [facility] [address], [place] [address], [facility] [phone] * (ABNORMAL) Parathyroid Hormone Intact (11/03/2023 10:30 AM PHARMACEUTICAL OFFICER) Parathyroid Hormone Intact 143(H) 15 - 65 pg/mL 11/03/2023 2:48 PM PHARMACEUTICAL OFFICER [facility] Blood BLOOD SPECIMEN / Unknown Venipuncture / Unknown 11/03/2023 10:30 AM PHARMACEUTICAL OFFICER 11/03/2023 10:38 AM PHARMACEUTICAL OFFICER Narrative [facility] - 11/03/2023 2:48 PM PHARMACEUTICAL OFFICER This result was obtained with the [employer] PTH STAT assay. This reference range differs from PTH assays used in other [facility] laboratories. Skyler Angel MD LAB - BLOOD ORDERABL ES [facility] [address] [facility], [address] [place] [address], [facility] [phone] * Urine Microscopic Exam (11/03/2023 10:30 AM PHARMACEUTICAL OFFICER) RBC Urine None Seen 0-2 /HPF /HPF TY 11/03/2023 10:58 AM PHARMACEUTICAL OFFICER [facility] WBC Urine None Seen 0-5 /HPF /HPF TY 11/03/2023 10:58 AM PHARMACEUTICAL OFFICER [facility] Urine URINE SPECIMEN OBTAINED BY CLEAN CATCH PROCEDURE / Unknown Non-blood Collection / Unknown 11/03/2023 10:30 AM PHARMACEUTICAL OFFICER 11/03/2023 10:39 AM PHARMACEUTICAL OFFICER Skyler Angel MD LAB - URINE ORDERABL ES Performing Organization Address City/[facility]/ZIP Co de Phone Number [facility] [address], [place] [address], [facility] [phone] * (ABNORMAL) Albumin Random Urine Quantitative with Creat Ratio (11/03/2023 10:30 AM PHARMACEUTICAL OFFICER) Creatinine Urine mg/dL 36.9 mg/dL 11/03/2023 2:47 PM PHARMACEUTICAL OFFICER [facility] Comment:The reference ranges have not been established in urine creatinine. The results should be integrated into the clinical context for interpretation. Albumin Urine mg/L 14.1 mg/L 2023 2:47 PM PHARMACEUTICAL OFFICER [facility] Comment:The reference ranges have not been established in urine albumin. The results should be integrated into the clinical context for interpretation. Albumin Urine mg/g Cr 38.21(H) 0.00 - 17.00 mg/g Cr 11/03/2023 2:47 PM PHARMACEUTICAL OFFICER [facility] Comment: Microalbuminuria is defined as [...] control, and institution of therapy with an oqlgzfbqlgt-ecajgxapzw-zgawbq (MATA) inhibitor (if the patient can tolerate it). ?? Urine URINE SPECIMEN OBTAINED BY CLEAN CATCH PROCEDURE / Unknown Non-blood Collection / Unknown 11/03/2023 10:30 AM PHARMACEUTICAL OFFICER 11/03/2023 10:39 AM PHARMACEUTICAL OFFICER Skyler Angel MD LAB - URINE ORDERABL ES [facility] [address] [facility], [address] [phone] [phone] * (ABNORMAL) Cystatin C with GFR (11/03/2023 10:30 AM PHARMACEUTICAL OFFICER) Cystatin C 4.3(H) 0.6 - 1.0 mg/L 11/04/2023 3:47 AM PHARMACEUTICAL OFFICER [facility] GFR Calculated with Cystatin C 11(L) >=60 mL/min/1.7 3m2 11/04/2023 3:47 AM PHARMACEUTICAL OFFICER [facility] Blood BLOOD SPECIMEN / Unknown Venipuncture / Unknown 11/03/2023 10:30 AM PHARMACEUTICAL OFFICER 11/03/2023 10:38 AM PHARMACEUTICAL OFFICER Narrative [facility] - 11/04/2023 3:47 AM PHARMACEUTICAL OFFICER eGFRcys in adults is calculated using the 2012 CKD-EPI cystatin c equation which includes age and gender (Haseeb et al., NEJM, DOI: 10.1056/WOLFso6459730) Skyler Angel MD LAB - BLOOD ORDERABL ES [facility] [place] [address] [facility], [address] [place] [address], [facility] [phone] * (ABNORMAL) CBC with platelets (11/03/2023 10:30 AM PHARMACEUTICAL OFFICER) WBC Count 4.2 4.0 - 11.0 10e3/uL 11/03/2023 10:46 AM PHARMACEUTICAL OFFICER [facility] RBC Count 3.22(L) 4.40 - 5.90 10e6/uL 11/03/2023 10:46 AM PHARMACEUTICAL OFFICER [facility] Hemoglobin 11.7(L) 13.3 - 17.7 g/dL 11/03/2023 10:46 AM PHARMACEUTICAL OFFICER [facility] Hematocrit 34.7(L) 40.0 - 53.0 % 11/03/2023 10:46 AM PHARMACEUTICAL OFFICER [facility] MCV 108(H) 78 - 100 fL 11/03/2023 10:46 AM PHARMACEUTICAL OFFICER [facility] MCH 36.3(H) 26.5 - 33.0 pg 11/03/2023 10:46 AM PHARMACEUTICAL OFFICER [facility] MCHC 33.7 31.5 - 36.5 g/dL 11/03/2023 10:46 AM PHARMACEUTICAL OFFICER [facility] RDW 12.1 10.0 - 15.0 % 11/03/2023 10:46 AM PHARMACEUTICAL OFFICER [facility] Platelet Count 179 150 - 450 10e3/uL 11/03/2023 10:46 AM PHARMACEUTICAL OFFICER [facility] Blood BLOOD SPECIMEN / Unknown Venipuncture / Unknown 11/03/2023 10:30 AM PHARMACEUTICAL OFFICER 11/03/2023 10:38 AM PHARMACEUTICAL OFFICER Skyler Angel MD LAB - BLOOD ORDERABL ES [facility] [address] [address], [facility] [phone] from Last 3 Months Care Teams Film Numberer Relationship Specialty Start Date End Date Sugey Washington MD [address] [address] PCP - General Family Medicine 11/03/23 Skyler Angel MD [address] [place], [place] [address] Internal Medicine 05/14/23 Skyler Angel MD [address] [place], [place] [address] Internal Medicine 06/24/23 Skyler Angel MD [address] [place], [place] [phone] Assigned Nephrology Provider 11/20/23
--- OUTSIDE RECORDS SUMMARY | 2023-12-15 06:18 | XMS_ITS | Clinical Summary ---
Author Name Unknown Organization [facility] Address [address] [place] [address] Care Team Providers Care Keyboard Instrument Repairer Name Role Phone Skyler Angel MD Unavailable Skyler Angel MD Unavailable Sugey Washington MD Primary Care Provider [phone] Skyler Angel MD Unavailable Allergies No known active allergies Medications Medication [...] 0 09/01/2023 Active daratumumab-hyaluron idase-fihj (DARZALEX FASPRO) 1800-36174 MG-UT/15ML SUBCUTANEOUS injection Inject 1,800 mg Subcutaneous 0 11/24/2023 Active Encounters Date Type Department Care Team Description 11/03/2023 11:00 AM [employer]BE[employer] ABATEMENT WORKER Office Visit [address] [address] Skyler Angel MD CKD (chronic kidney disease) stage 5, GFR less than 15 ml/min (H) (Primary Dx); ESRD (end stage renal disease) on dialysis (H) 11/03/2023 10:30 AM [employer]BESTOS HAZARD ABATEMENT WORKER Lab [facility] [address] [place] [address] [phone] Acute renal failure superimposed on chronic kidney disease (H24); ESRD (end stage renal disease) on dialysis (H); CKD (chronic kidney disease) stage 5, GFR less than 15 ml/min (H) 11/03/2023 Travel 11/02/2023 Telephone [facility] [address] [place] [address] [phone] Skyler Angel MD Patient Request 10/28/2023 Telephone [facility] [address] [place] [phone] Skyler Angel MD Appointment (Lab appt needed) from Last 3 Months Family History Medical History Relation Comments Breast Cancer Sister Relation Status Comments Sister Social History Tobacco Use Types Packs/Day Years [...] Comments Blood Pressure 163/90 11/03/2023 11:02 AM [employer] HAZARD ABATEMENT WORKER Pulse 74 11/03/2023 11:02 AM [employer] HAZARD ABATEMENT WORKER Temperature - - Respiratory Rate - - Oxygen Saturation 100% 11/03/2023 11:02 AM [employer] HA[employer]ARD ABATEMENT WORKER Inhaled Oxygen Concentration - - Weight 73.9 kg (163 lb) 11/03/2023 11:02 AM [employer]BE[employer]OS HAZARD ABATEMENT WORKER Height - - Body Mass Index - - Plan of Treatment Health Maintenance Due Date Last Done Comments ADVANCE CARE PLANNING 1959 ANNUAL REVIEW OF HM ORDERS 1959 CT COLONOGRAPHY 1959 FIT 1959 FLEX SIG 1959 sDNA (Cologuard) 1959 COVID-19 Vaccine (#1) 12/20/1964 Pneumococcal Vaccine: Pediatrics (0 to 5 Years) and At-Risk Patients (6 to 64 Years) (1 of 2 - PCV) 12/20/1965 COLONOSCOPY 12/20/1969 COLORECTAL CANCER SCREENING 12/20/1969 HIV SCREENING 12/20/1974 HEPATITIS C SCREENING 12/20/1977 MEDICARE ANNUAL WELLNESS VISIT 12/20/1977 ZOSTER IMMUNIZATION (1 of 2) 12/20/1978 HEPATITIS B IMMUNIZATION (1 of 3 - Risk Dialysis 4-dose series) 1979 LIPID 1999 RSV VACCINE ( & 60+ ) (1 - 1-dose 60+ series) 2019 DTAP/TDAP/TD IMMUNIZATION (2 - Td or Tdap) 02/12/2021 02/12/2011, 04/28/2003 INFLUENZA VACCINE (#1) 2023 PHQ-2 (once per calendar year) 2023 GLUCOSE 11/03/2026 11/03/2023 HPV IMMUNIZATION Aged Out No longer e ligible based on patient's age to complete this topic IPV IMMUNIZATION Aged Out No longer e ligible based on patient's age to complete this topic MENINGITIS IMMUNIZATION Aged Out No l onger eligible based on patient's age to complete this topic RSV MONOCLONAL ANTIBODY Aged Out No l onger eligible based on patient's age to complete this topic Procedures Procedure Name Priority Date/Time Associated Diagnosis Comments UREA NITROGEN TIMED URINE Routine 11/10/2023 11:03 AM [employer]AT[employer] WORKER CKD (chronic kidney disease) stage 5, GFR less than 15 ml/min (H) CREATININE TIMED URINE Routine 11/09/2023 5:30 AM [employer] ABATEMENT WORKER CKD (chronic kidney disease) stage 5, GFR less than 15 ml/min (H) ESRD (end stage renal disease) on dialysis (H) URINE MICROSCOPIC EXAM Routine 11/03/2023 10:30 AM [employer] ABATEMENT WORKER Acute renal failure superimposed on chronic kidney disease (H24) CYSTATIN C WITH GFR Routine 11/03/2023 1 0:30 AM [employer] HA[employer] ABATEMENT WORKER ESRD (end stage renal disease) on dialysis (H) VITAMIN D DEFICIENCY SCREENING Routine 11/03/2023 10:30 AM [employer] ABATEMENT WORKER Acute renal failure superimposed on chronic kidney disease (H24) ROUTINE UA WITH MICROSCOPIC Routine 11/03/2023 10:30 AM [employer] ABATEMENT WORKER Acute renal failure superimposed on chronic kidney disease (H24) RENAL PANEL Routine 11/03/2023 10:30 AM [employer] HAZARD ABATEMENT WORKER Acute renal failure superimposed on chronic kidney disease (H24) PROTEIN RANDOM URINE Routine 11/03/2023 10:30 AM [employer] ABATEMENT WORKER Acute renal failure superimposed on chronic kidney disease (H24) PARATHYROID HORMONE INTACT Routine 11/03/2023 10:30 AM [employer] ABATEMENT WORKER Acute renal failure superimposed on chronic kidney disease (H24) CBC WITH PLATELETS Routine 11/03/2023 10 :30 AM [employer] HA[employer] ABATEMENT WORKER Acute renal failure superimposed on chronic kidney disease (H24) ALBUMIN RANDOM URINE QUANTITATIVE Routine 11/03/2023 10:30 AM [employer] ABATEMENT WORKER Acute renal failure superimposed on chronic kidney disease (H24) from Last 3 Months Results * (ABNORMAL) Urea nitrogen timed urine (11/10/2023 11:03 AM [employer]ARD ABATEMENT WORKER) Urea Nitrogen Urine mg/dL 187.0(L) 801.0 - 1,666.0 mg/dL 11/11/2023 2:14 AM [employer] HAZARD ABATEMENT WORKER [facility] Urea Nitrogen Urine g/spec 4(L) 12 - 20 g/spec 11/11/2023 2:14 AM [employer] HA[employer]ARD ABATEMENT WORKER [facility] Duration in hours 24.0 h TY 11/11/2023 2:14 AM [employer]BE[employer]OS HAZARD ABATEMENT WORKER [facility] Volume in mL 1,975 mL TY 11/11/2023 2:14 AM [employer] HA[employer]ARD ABATEMENT WORKER [facility] Urine URINE SPECIMEN / Unknown Non-blood Collection / Unknown 11/10/2023 11:03 AM [employer] ABATEMENT WORKER 11/10/2023 11:04 AM [employer] HA[employer] ABATEMENT WORKER Skyler Angel MD LAB - URINE ORDERABL ES [facility] [place] [facility] [address] [facility], [address] [place] [address], [facility] [phone] * (ABNORMAL) Creatinine timed urine (11/09/2023 5:30 AM [employer] HA[employer] ABATEMENT WORKER) Creatinine Urine mg/dL 43.6 mg/dL 11/11/2023 1:04 AM [employer]BE[employer]OS HAZARD ABATEMENT WORKER [facility] Comment:The reference ranges have not been established in urine creatinine. The results should be integrated into the clinical context for interpretation. Duration in hours 24.0 h TY 11/11/2023 1:04 AM [employer]BE[employer]OS HAZARD ABATEMENT WORKER [facility] Volume in mL 1,975 mL TY 11/11/2023 1:04 AM [employer]BE[employer]OS HAZARD ABATEMENT WORKER [facility] Creatinine Urine Timed g/spec 0.86(L) 0.98 - 2.20 g/spec 11/11/2023 1:04 AM [employer] HAZARD ABATEMENT WORKER [facility] Urine URINE SPECIMEN / Unknown Non-blood Collection / Unknown 11/09/2023 5:30 AM [employer] HA[employer]ARD ABATEMENT WORKER 11/10/2023 11:11 AM [employer] ABATEMENT WORKER Skyler Angel MD LAB - URINE ORDERABL ES Performing Organization Address [facility] Co de Phone Number [facility] [address] [facility], [address] [phone] [phone] * Vitamin D Deficiency (11/03/2023 10:30 AM [employer] HA[employer]ARD ABATEMENT WORKER) Vitamin D, Total (25-Hydroxy) 48 20 - 50 ng/mL 11/04/2023 3:47 AM [employer]BESTOS HAZARD ABATEMENT WORKER [facility] Comment:optimum levels Blood BLOOD SPECIMEN / Unknown Venipuncture / Unknown 11/03/2023 10:30 AM [employer] HA[employer]ARD ABATEMENT WORKER 11/03/2023 10:38 AM [employer] HAZARD ABATEMENT WORKER Narrative [facility] - 11/04/2023 3:47 AM [employer] HA[employer]ARD ABATEMENT WORKER Season, race, dietary intake, and treatment affect the concentration of 43-ydobokp-Wdiqiki D. Values may decrease during winter months and increase during summer months. Vitamin D determination is routinely performed by an immunoassay specific for 25 hydroxyvitamin D3. ??If an individual is on vitamin D2(ergocalciferol) supplementation, please specify 25 OH vitamin D2 and D3 level determination by LCMSMS test VITD23. Skyler Angel MD LAB - BLOOD ORDERABL ES Performing Organization Address City/[facility]/ZIP Co de Phone Number [facility] [address] [facility], [address] [place] [address], [facility] [phone] * (ABNORMAL) UA with Microscopic (11/03/2023 10:30 AM [employer] HAZARD ABATEMENT WORKER) Color Urine Colorless Colorless, Straw, Light Yellow, Yellow 11/03/2023 10:46 AM [employer]BE[employer]OS HAZARD ABATEMENT WORKER [facility] Appearance Urine Clear Clear 11/03/19 10:46 AM [employer]BE[employer] HAZARD ABATEMENT WORKER [facility] Glucose Urine 200(A) Negative mg/dL 11/03/2023 10:46 AM [employer]BE[employer]OS HAZARD ABATEMENT WORKER [facility] Bilirubin Urine Negative Negative 10:46 AM [employer] HAZARD ABATEMENT WORKER [facility] Ketones Urine Negative Negative mg/dL 11/03/2023 10:46 AM [employer]BESTOS HAZARD ABATEMENT WORKER [facility] Specific Union Urine 1.008 0.999 - 1.035 11/03/2023 10:46 AM [employer]BE[employer]OS HAZARD ABATEMENT WORKER [facility] Blood Urine Negative Negative 11/03/2023 10:46 AM [employer]BE[employer]OS HAZARD ABATEMENT WORKER [facility] pH Urine 7.5(H) 5.0 - 7.0 11/03/2023 10:46 AM [employer]BE[employer]OS HAZARD ABATEMENT WORKER [facility] Protein Albumin Urine 20(A) Negative mg/dL 11/03/2023 10:46 AM [employer]BESTOS HAZARD ABATEMENT WORKER [facility] Urobilinogen Urine Normal Normal, 2.0 mg/dL 11/03/2023 10:46 AM [employer]BE[employer]OS HAZARD ABATEMENT WORKER [facility] Nitrite Urine Negative Negative 11/03/2023 10:46 AM [employer]BE[employer]OS HAZARD ABATEMENT WORKER [facility] Leukocyte Esterase Urine Negative Negative 11/03/2023 10:46 AM ASBESTOS HAZARD ABATEMENT WORKER [facility] SKIP 11/03/2023 10:46 AM [employer]BESTOS HAZARD ABATEMENT WORKER [facility] Urine URINE SPECIMEN OBTAINED BY CLEAN CATCH PROCEDURE / Unknown Non-blood Collection / Unknown 11/03/2023 10:30 AM [employer] HAZARD ABATEMENT WORKER 11/03/2023 10:39 AM [employer] HAZARD ABATEMENT WORKER Skyler Angel MD LAB - URINE ORDERABL [facility] LABORATORY [address], [place] [address], [place] [phone] * (ABNORMAL) Renal panel (11/03/2023 10:30 AM ASBESTOS HAZARD ABATEMENT WORKER) Pathologist [facility] Sodium 137 135 - 145 mmol/L 11/03/2023 11:12 AM [employer]BESTOS HAZARD ABATEMENT WORKER [facility] Comment:Reference intervals for this test were updated on 06/02/2023 to more accurately reflect our healthy population. There may be differences in the flagging of prior results with similar values performed with this method. Interpretation of those prior results can be made in the context of the updated reference intervals. Potassium 5.7(H) 3.4 - 5.3 mmol/L 11/03/2023 11:12 AM [employer]BE[employer]OS HAZARD ABATEMENT WORKER [facility] Chloride 106 98 - 107 mmol/L 11/03/2023 11:12 AM [employer] HAZARD ABATEMENT WORKER [facility] Carbon Dioxide (CO2) 14(L) 22 - 29 mmol/L 11/03/2023 11:12 AM [employer]BESTOS HAZARD ABATEMENT WORKER [facility] Anion Gap 17(H) 7 - 15 mmol/L 11/03/2023 11:12 AM [employer]BE[employer]OS HAZARD ABATEMENT WORKER [facility] Glucose 90 70 - 99 mg/dL 11/03/2023 11:12 AM [employer]BE[employer]OS HAZARD ABATEMENT WORKER [facility] Urea Nitrogen 61.7(H) 8.0 - 23.0 mg/dL 11/03/2023 11:12 AM [employer]OS HAZARD ABATEMENT WORKER [facility] Creatinine 8.16(H) 0.67 - 1.17 mg/dL 11/03/2023 11:12 AM [employer]BE[employer]OS HAZARD ABATEMENT WORKER [facility] GFR Estimate 7(L) >60 mL/min/1. 73m2 11/03/2023 11:12 AM [employer]BESTOS HAZARD ABATEMENT WORKER [facility] Calcium 8.9 8.8 - 10.2 mg/dL 11/03/2023 11:12 AM ASBESTOS HAZARD ABATEMENT WORKER [facility] Albumin 4.4 3.5 - 5.2 g/dL 11/03/2023 11:12 AM [employer] HAZARD ABATEMENT WORKER [facility] Phosphorus 5.5(H) 2.5 - 4.5 mg/dL 11/03/2023 11:12 AM [employer]BE[employer]OS HAZARD ABATEMENT WORKER [facility] Blood BLOOD SPECIMEN / Unknown Venipuncture / Unknown 11/03/2023 10:30 AM [employer] HAZARD ABATEMENT WORKER 11/03/2023 10:38 AM [employer] HA[employer]ARD ABATEMENT WORKER Skyler Angel MD LAB - BLOOD ORDERABL ES [facility] [address], [place] [address], [facility] [phone] * (ABNORMAL) Protein random urine (11/03/2023 10:30 AM ASBE[employer]OS HAZARD ABATEMENT WORKER) Total Protein Urine mg/dL 9.4 mg/dL 11/03/2023 11:15 AM [employer]BESTOS HAZARD ABATEMENT WORKER [facility] Comment:The reference ranges have not been established in urine protein. The results should be integrated into the clinical context for interpretation. Total Protein Urine mg/mg Creat 0.24(H) 0.00 - 0.20 mg/mg Cr 11/03/2023 11:15 AM [employer]BESTOS HAZARD ABATEMENT WORKER [facility] Creatinine Urine mg/dL 38.7 mg/dL 11/03/2023 11:15 AM [employer]BESTOS HAZARD ABATEMENT WORKER [facility] Comment:The reference ranges have not been established in urine creatinine. The results should be integrated into the clinical context for interpretation. Urine URINE SPECIMEN OBTAINED BY CLEAN CATCH PROCEDURE / Unknown Non-blood Collection / Unknown 11/03/2023 10:30 AM [employer] HAZARD ABATEMENT WORKER 11/03/2023 10:39 AM [employer] HAZARD ABATEMENT WORKER Skyler Angel MD LAB - URINE ORDERABL ES Performing Organization Address City/[facility]/ZIP Co de Phone Number [facility] [address] [address], [facility] [phone] * (ABNORMAL) Parathyroid Hormone Intact (11/03/2023 10:30 AM [employer]BE[employer] HAZARD ABATEMENT WORKER) Parathyroid Hormone Intact 143(H) 15 - 65 pg/mL 11/03/2023 2:48 PM [employer]BESTOS HAZARD ABATEMENT WORKER [facility] Blood BLOOD SPECIMEN / Unknown Venipuncture / Unknown 11/03/2023 10:30 AM [employer] HAZARD ABATEMENT WORKER 11/03/2023 10:38 AM ASBESTOS HAZARD ABATEMENT WORKER Narrative [facility] - 11/03/2023 2:48 PM [employer]BESTOS HAZARD ABATEMENT WORKER This result was obtained with the Rose Elecsys PTH STAT assay. This reference range differs from PTH assays used in other [facility] laboratories. Skyler Angel MD LAB - BLOOD ORDERABL ES [facility] [place] [facility] [address] [facility], [address] [place] [address], [place] [phone] * Urine Microscopic Exam (11/03/2023 10:30 AM ASBE[employer] HAZARD ABATEMENT WORKER) RBC Urine None Seen 0-2 /HPF /HPF TY 11/03/2023 10:58 AM [employer]BE[employer]OS HAZARD ABATEMENT WORKER [facility] WBC Urine None Seen 0-5 /HPF /HPF TY 11/03/2023 10:58 AM [employer]BE[employer]OS HAZARD ABATEMENT WORKER [facility] Urine URINE SPECIMEN OBTAINED BY CLEAN CATCH PROCEDURE / Unknown Non-blood Collection / Unknown 11/03/2023 10:30 AM [employer] HAZARD ABATEMENT WORKER 11/03/2023 10:39 AM [employer] HAZARD ABATEMENT WORKER Skyler Angel MD LAB - URINE ORDERABL [facility] LAB[facility]AT[facility] [address], [place] [address], [facility] [phone] * (ABNORMAL) Albumin Random Urine Quantitative with Creat Ratio (11/03/2023 10:30 AM ASBE[employer]OS HAZARD ABATEMENT WORKER) Creatinine Urine mg/dL 36.9 mg/dL 11/03/2023 2:47 PM ASBESTOS HAZARD ABATEMENT WORKER [facility] Comment:The reference ranges have not been established in urine creatinine. The results should be integrated into the clinical context for interpretation. Albumin Urine mg/L 14.1 mg/L 2023 2:47 PM [employer]BESTOS HAZARD ABATEMENT WORKER [facility] Comment:The reference ranges have not been established in urine albumin. The results should be integrated into the clinical context for interpretation. Albumin Urine mg/g Cr 38.21(H) 0.00 - 17.00 mg/g Cr 11/03/2023 2:47 PM ASBESTOS HAZARD ABATEMENT WORKER [facility] Comment: Microalbuminuria is defined as [...] control, and institution of therapy with an jpocxdzcjtn-gahxkwotxe-jgibeo (MATA) inhibitor (if the patient can tolerate it). ?? Urine URINE SPECIMEN OBTAINED BY CLEAN CATCH PROCEDURE / Unknown Non-blood Collection / Unknown 11/03/2023 10:30 AM [employer]BE[employer]OS HAZARD ABATEMENT WORKER 11/03/2023 10:39 AM [employer]BE[employer] HAZARD ABATEMENT WORKER Skyler Angel MD LAB - URINE ORDERABL ES Performing Organization Address City/[facility]/ZIP Co de Phone Number [facility] [place] [facility] [address] [facility], [address] [place] [address], [facility] [phone] * (ABNORMAL) Cystatin C with GFR (11/03/2023 10:30 AM [employer]OS HAZARD ABATEMENT WORKER) Cystatin C 4.3(H) 0.6 - 1.0 mg/L 11/04/2023 3:47 AM [employer]BESTOS HAZARD ABATEMENT WORKER [facility] GFR Calculated with Cystatin C 11(L) >=60 mL/min/1.7 3m2 11/04/2023 3:47 AM ASBESTOS HAZARD ABATEMENT WORKER [facility] Blood BLOOD SPECIMEN / Unknown Venipuncture / Unknown 11/03/2023 10:30 AM [employer]BE[employer]OS HAZARD ABATEMENT WORKER 11/03/2023 10:38 AM [employer]BESTOS HAZARD ABATEMENT WORKER Narrative [facility] - 11/04/2023 3:47 AM [employer]BE[employer]OS HAZARD ABATEMENT WORKER eGFRcys in adults is calculated using the 2012 CKD-EPI cystatin c equation which includes age and gender (Haseeb et al., NEJ, DOI: 10.1056/JGHSrh4366457) Skyler Angel MD LAB - BLOOD ORDERABL ES [facility] [place] [facility] [address] [facility], [address] [place] [address], [facility] [phone] * (ABNORMAL) CBC with platelets (11/03/2023 10:30 AM [employer]BE[employer]OS HAZARD ABATEMENT WORKER) WBC Count 4.2 4.0 - 11.0 10e3/uL 11/03/2023 10:46 AM [employer]BE[employer]OS HAZARD ABATEMENT WORKER [facility] RBC Count 3.22(L) 4.40 - 5.90 10e6/uL 11/03/2023 10:46 AM [employer] HAZARD ABATEMENT WORKER [facility] Hemoglobin 11.7(L) 13.3 - 17.7 g/dL 11/03/2023 10:46 AM [employer]BE[employer]OS HAZARD ABATEMENT WORKER [facility] Hematocrit 34.7(L) 40.0 - 53.0 % 11/03/2023 10:46 AM [employer]BE[employer]OS HAZARD ABATEMENT WORKER [facility] MCV 108(H) 78 - 100 fL 11/03/2023 10:46 AM ASBESTOS HAZARD ABATEMENT WORKER [facility] MCH 36.3(H) 26.5 - 33.0 pg 11/03/2023 10:46 AM [employer]BE[employer]OS HAZARD ABATEMENT WORKER [facility] MCHC 33.7 31.5 - 36.5 g/dL 11/03/2023 10:46 AM [employer]BE[employer]OS HAZARD ABATEMENT WORKER [facility] RDW 12.1 10.0 - 15.0 % 11/03/2023 10:46 AM [employer]BE[employer]OS HAZARD ABATEMENT WORKER [facility] Platelet Count 179 150 - 450 10e3/uL 11/03/2023 10:46 AM [employer]BE[employer]OS HAZARD ABATEMENT WORKER [facility] Blood BLOOD SPECIMEN / Unknown Venipuncture / Unknown 11/03/2023 10:30 AM [employer]ARD ABATEMENT WORKER 11/03/2023 10:38 AM [employer] HA[employer]ARD ABATEMENT WORKER Skyler Angel MD LAB - BLOOD ORDERABL ES [facility] [address] [address] [phone] from Last 3 Months Care Teams Keyboard Instrument Repairer Relationship Specialty Start Date End Date Sugey Washington MD [address] [address] PCP - General Family Medicine 11/03/23 Skyler Angel MD [address] [place] [address] MD Internal Medicine 05/14/23 Skyler Angel MD [address] [place] [address] Internal Medicine 06/24/23 Skyler Angel MD [address] [place] [address] Assigned Nephrology Provider 11/20/23
--- OUTSIDE RECORDS SUMMARY | 2023-12-15 06:18 | XMS_ITS ---
Author Name [facility], Clinic Address [address] [place], [place] [address] Phone [phone] Organization [facility] e, NA DOCUMENT DISCLAIMER Multiple document versions may exist, please be sure you review the latest version. The information in the [facility] Continuity of Care Document represents a summary of certain health and medical information. It may not contain the complete medical history for the patient and should be independently verified. The represented time in the document is Eastern Time. PROBLEMS Problem Code Status Onset Date Dependence on renal dialysis Z99.2 Active December 08, 2023 End stage renal disease N18.6 Active 2022 Iron deficiency anemia, unspecified D50.9 Activ e August 19, 2022 Multiple myeloma not having achieved remission C90.00 Active August 12, 2022 Anemia, unspecified D64.9 Active August 04, 2022 Acute kidney failure, unspecified N17.9 Active August 04, 2022 ALLERGIES AND ADVERSE REACTIONS No Known Allergies SOCIAL HISTORY Tobacco Use Status Tobacco Type Unknown if ever consumed tobacco - Caregiver Characteristics No Information Available Characteristics of Home environment No Information Available MEDICATIONS Prescribed Medications for Dialysis Treatments Medication Instructions Dosage Route Start Date End Date Stat us Alteplase, Recombinant (Cathflo Activase) Declot PRN-january repeat x1 2 mg Arterial Red Port December 08, 2023 January 05, 2024 Active Heparin Sodium (Porcine) 1,000 Units/mL Catheter Lock Arterial Post Dialysis, Every Treatment 1800 units Arterial Red Port September 10, 2023 September 08, 2024 Active Heparin Sodium (Porcine) 1,000 Units/mL Catheter Lock Venous Post Dialysis, Every Treatment 1800 units Venous Blue Port September 10, 2023 September 08, 2024 Active Heparin Sodium (Porcine) 1,000 Units/mL Systemic Bolus, Every Treatment, Total treatment minutes 180 2000 units Intravenous - push September 10, 2023 September 08, 2024 Active Iron Sucrose (Venofer) During Dialysis, 2X Week 100 mg Intravenous - push December 05, 2023 January 05, 2024 Active Mircera During Dialysis, Every 4 weeks 75 mcg Intravenous - push November 26, 2023 November 24, 2024 Active Vitamin D (Calcitriol) Oral 3X Week 0.50 mcg Oral September 12, 2023 September 10, 2024 Active Home Medications Medication Instructions Dosage Route Start Date End Date [facility] acyclovir 200 mg Take by mouth once a day 1 capsule ORAL November 24, 2023 Active allopurinol 100 mg ORAL August 06, 2022 Active amlodipine 2.5 mg Take by mouth once a day 1 tablet ORAL November 24, 2023 Active aspirin 81 mg Take by mouth once a day 1 tablet ORAL November 24, 2023 Active B complex-vitamin C-folic acid 1 mg Take by mouth once a day 1 tablet ORAL October 17, 2022 Active Darzalex Faspro 1,800 mg-30,000 unit/15 mL Inject subcutaneously once a month 1 mg SUBCUTANEOUS November 24, 2023 Active dexamethasone 4 mg Take by mouth once a day 1 tablet ORAL November 24, 2023 Active oxycodone immediate release tablet 5mg Unknown August 06, 2022 Active senna 8.6mg tablet Unknown August 06, 2022 Active sevelamer carbonate 800 mg Take by mouth three times a day 1 tablet ORAL November 09, 2023 Active VITAL SIGNS Post-Treatment Vital Signs Vital Sign Value Date / Time Blood Pressure-sitting 125/84 mmHg December 12, 2023 05:24 AM Blood Pressure-standing 120/77 mmHg December 05:24 AM Heart Rate 80 beats per minute December 11 05:24 AM Respiratory Rate 16 breaths per minute December 12, 2023 05:24 AM Temperature 97.6 deg. F December 12, 2023 0 5:24 AM Weight Vital Sign Value Date / Time Estimated Dry Weight 71.9 kg December 04 024 11:59 PM Pre-Dialysis 73.80 kg December 12, 2023 0 5:24 AM Post-Dialysis 71.80 kg December 12, 2023 0 5:24 AM Other Other Value Date / Time Height 175 cm August 11 12:00 AM LAB RESULTS Hematology Result Type Result Value Relevant Referen ce Range Interpretation Date Folate, Serum 18.1 ng/mL No Reference Ran ge Provided - May 27, 2023 TIBC 267 mcg/dL 185 - 515 mcg/dL - June 29, 2023 UIBC (Calc) 158 mcg/dL 155 - 355 mcg/dL - June 29, 2023 Transferrin Sat. (Calc) 41 % 20 - 55 % - June 29, 2023 Platelets 178 1000/mcL 130 - 400 1000/mcL - Juno 2022 WBC (No Diff) 2.07 1000/mcL 4.80 - 10.80 1000/mcL Low June 29, 2023 Transferrin Sat. (Calc) 72 % 20 - 55 % High August 07 Ferritin 686 ng/mL 22 - 322 ng/mL High August UIBC (Calc) 76 mcg/dL 155 - 355 mcg/dL Low 2022 TIBC 268 mcg/dL 185 - 515 mcg/dL - August 07, 2023 WBC (No Diff) 7.48 1000/mcL 4.80 - 10.80 1000/mcL - August 07, 2023 Platelets 188 1000/mcL 130 - 400 1000/mcL - 2022 TIBC 253 mcg/dL 185 - 515 mcg/dL - August 10, 2023 Transferrin Sat. (Calc) 37 % 20 - 55 % - August 10 UIBC (Calc) 160 mcg/dL 155 - 355 mcg/dL - 2022 Ferritin 747 ng/mL 22 - 322 ng/mL High August WBC (No Diff) 6.24 1000/mcL 4.80 - 10.80 1000/mcL - August 10, 2023 Platelets 197 1000/mcL 130 - 400 1000/mcL - 2022 WBC (No Diff) 3.05 1000/mcL 4.80 - 10.80 1000/mcL Low September 10, 2023 Platelets 178 1000/mcL 130 - 400 1000/mcL - Robert [id number] UIBC (Calc) 199 mcg/dL 155 - 355 mcg/dL - September 10, 2023 TIBC 279 mcg/dL 185 - 515 mcg/dL - September 10, 2023 Transferrin Sat. (Calc) 29 % 20 - 55 % - September 10, 2023 Hemoglobin x 3 35.4 % 42.0 - 54.0 % Low September 24, 2023 Hemoglobin x 3 37.2 % 42.0 - 54.0 % Low October 01, 2023 WBC (No Diff) 4.83 1000/mcL 4.80 - 10.80 1000/mcL - October 08, 2023 Transferrin Sat. (Calc) 25 % 20 - 55 % - October 08 Platelets 196 1000/mcL 130 - 400 1000/mcL - ua2023 Hemoglobin x 3 39.6 % 42.0 - 54.0 % Low uar y 2023 RDW 14.1 % 11.5 - 14.5 % - October MCHC 35.3 g/dL 30.0 - 36.0 g/dL - October 08, 2023 MCH 38.5 pg 27.0 - 31.0 pg High October TIBC 236 mcg/dL 185 - 515 mcg/dL - October 08, 2023 UIBC (Calc) 176 mcg/dL 155 - 355 mcg/dL - r 2023 Iron 60 mcg/dL 45 - 160 mcg/dL - October 08, 2023 Hemoglobin x 3 36.3 % 42.0 - 54.0 % Low uar 2023 Hemoglobin x 3 39.6 % 42.0 - 54.0 % Low uar 2023 Hemoglobin x 3 35.1 % 42.0 - 54.0 % Low uar 2023 Hemoglobin x 3 33.9 % 42.0 - 54.0 % Low uar 2023 Hemoglobin x 3 34.2 % 42.0 - 54.0 % Low November HGB 10.9 g/dL 14.0 - 18.0 g/dL Low November Hemoglobin x 3 32.7 % 42.0 - 54.0 % Low November 052023 WBC (No Diff) 5.30 1000/mcL 4.80 - 10.80 1000/mcL - November 26, 2023 UIBC (Calc) 214 mcg/dL 155 - 355 mcg/dL - November 062023 RBC 3.10 mill/mcL 4.70 - 6.10 mill/mcL Low November 26, 2023 Iron 74 mcg/dL 45 - 160 mcg/dL - November 26, 2023 TIBC 288 mcg/dL 185 - 515 mcg/dL - November Hemoglobin x 3 33.9 % 42.0 - 54.0 % Low November 062023 Platelets 231 1000/mcL 130 - 400 1000/mcL - Federico 2023 RDW 12.9 % 11.5 - 14.5 % - November 25 HGB 11.3 g/dL 14.0 - 18.0 g/dL Low November MCH 36.4 pg 27.0 - 31.0 pg High November 26, 2023 MCHC 33.2 g/dL 30.0 - 36.0 g/dL - November HCT 34.0 % 42.0 - 52.0 % Low November 25 Transferrin Sat. (Calc) 26 % 20 - 55 % - November 26, 2023 HGB 10.5 g/dL 14.0 - 18.0 g/dL Low December Hemoglobin x 3 31.5 % 42.0 - 54.0 % Low December Metabolic/Renal Result Type Result Value Relevant Referen ce Range Interpretation Date URR, Calc 74 % 65 - 80 % - October 08 Creatinine, Serum 7.51 mg/dL 0.60 - 1.30 mg/dL High October 08, 2023 BUN 62 mg/dL 6 - 19 mg/dL High October 08, 2023 Bicarbonate 17 mEq/L 20 - 31 mEq/L Low October Chloride 110 mEq/L 96 - 108 mEq/L High October Potassium 5.2 mEq/L 3.5 - 5.1 mEq/L High October 08, 2023 Sodium 138 mEq/L 136 - 145 mEq/L - October 08, 2023 BUN/Creat Ratio 8.3 10.0 - 20.0 Low October 08, 2023 BUN, Post 16 mg/dL 6 - 19 mg/dL - October 08, 2023 BUN, Post 13 mg/dL 6 - 19 mg/dL - November 25 Bicarbonate 24 mEq/L 20 - 31 mEq/L - November 26, 2023 Chloride 102 mEq/L 96 - 108 mEq/L - November 26, 2023 BUN 44 mg/dL 6 - 19 mg/dL High November 25 BUN/Creat Ratio 5.0 10.0 - 20.0 Low November URR, Calc 70 % 65 - 80 % - November 26, 2023 Creatinine, Serum 8.86 mg/dL 0.60 - 1.30 mg/dL High November 26, 2023 Potassium 4.6 mEq/L 3.5 - 5.1 mEq/L - November 26, 2023 Sodium 137 mEq/L 136 - 145 mEq/L - November 26, 2023 Bicarbonate 21 mEq/L 20 - 31 mEq/L - December 08, 2023 Chloride 107 mEq/L 96 - 108 mEq/L - December 08, 2023 Potassium 4.6 mEq/L 3.5 - 5.1 mEq/L - December 08, 2023 Sodium 139 mEq/L 136 - 145 mEq/L - December 08, 2023 BUN/Creat Ratio 7.8 10.0 - 20.0 Low December Creatinine, Serum 7.48 mg/dL 0.60 - 1.30 mg/dL High December 08, 2023 BUN 58 mg/dL 6 - 19 mg/dL High December 07 HD Adequacy Result Type Result Value Relevant Referen ce Range Interpretation Date Krt/V 0.00 No Reference Ran ge Provided - June 29, 2023 Krt/V 0.00 No Reference Ran ge Provided - August 10, 2023 Krt/V 0.00 No Reference Ran ge Provided - August 14, 2023 Krt/V 0.00 No Reference Ran ge Provided - September 10, 2023 eKt/V ([place]) 1.32 No Reference Range Provided - October 08, 2023 wstdKt/V 1.6 No Reference Ran ge Provided - October 08, 2023 spKt/V (Daugirdas II) 1.57 No Reference Range Provided - October 08, 2023 spKt/V Gotch 1.62 No Reference Ran ge Provided - October 08, 2023 wstdKt/V, residual 0.0 No Reference Range Provided - October 08, 2023 Krt/V 0.00 No Reference Ran ge Provided - October 08, 2023 wstdKt/V without residual 1.6 No Reference Range Provided - October 08, 2023 eKt/V ([place]) 1.21 No Reference Range Provided - November 26, 2023 spKt/V Gotch 1.50 No Reference Ran ge Provided - November 26, 2023 Krt/V 0.00 No Reference Ran ge Provided - November 26, 2023 wstdKt/V, residual 0.0 No Reference Range Provided - November 26, 2023 wstdKt/V 1.6 No Reference Ran ge Provided - November 26, 2023 spKt/V (Daugirdas II) 1.45 No Reference Range Provided - November 26, 2023 wstdKt/V without residual 1.6 No Reference Range Provided - November 26, 2023 Bone/Mineral Result Type Result Value Relevant Referen ce Range Interpretation Date Magnesium 2.2 mg/dL 1.6 - 2.6 mg/dL - December 26, 2022 Magnesium 2.3 mg/dL 1.6 - 2.6 mg/dL - March 30, 2023 Vitamin D 25 Hydroxy 25.1 ng/mL 30.0 - 100.0 ng/mL Low May 27, 2023 Magnesium 2.2 mg/dL 1.6 - 2.6 mg/dL - May 27, 2023 PTH-Intact, Plasma 364 pg/mL 16 - 80 pg/mL High Jun Vitamin D 25 Hydroxy 42.0 ng/mL 30.0 - 100.0 ng/mL - August 07, 2023 Magnesium 2.1 mg/dL 1.6 - 2.6 mg/dL - August 07, 2023 PTH-Intact, Plasma 144 pg/mL 16 - 80 pg/mL High Aug Magnesium 2.0 mg/dL 1.6 - 2.6 mg/dL - August 10, 2023 PTH-Intact, Plasma 267 pg/mL 16 - 80 pg/mL High Aug PTH-Intact, Plasma 319 pg/mL 16 - 80 pg/mL High Sep Phosphorus 5.5 mg/dL 2.6 - 4.5 mg/dL High October 08, 2023 Calcium, Total 8.5 mg/dL 8.7 - 10.4 mg/dL Low 2023 Ca x P Product 47 0 - 54 - October Corrected Ca x P Product 47 0 - 54 - October 08 Ca x P Product 46 0 - 54 - November 26, 2023 Corrected Ca x P Product 44 0 - 54 - November 26, 2023 Phosphorus 4.8 mg/dL 2.6 - 4.5 mg/dL High November 26, 2023 Calcium, Total 9.6 mg/dL 8.7 - 10.4 mg/dL - Federico 2023 Calcium, Total 8.9 mg/dL 8.7 - 10.4 mg/dL - Apri l 2023 PTH-Intact, Plasma 192 pg/mL 16 - 80 pg/mL High Apr il 2024 Liver/Nutrition Result Type Result Value Relevant Referen ce Range Interpretation Date eNPCR 0.99 No Reference Ran ge Provided - October 08, 2023 A/G Ratio 2.9 1.0 - 2.0 High October 08 024 Globulin (Calc) 1.4 g/dL 2.0 - 4.0 g/dL Low u jl2023 Albumin (BCG) 4.0 g/dL 3.5 - 5.2 g/dL - uar 2023 Total Protein 5.4 g/dL 6.0 - 8.5 g/dL Low 2023 Albumin (BCG) 4.6 g/dL 3.5 - 5.2 g/dL - November 062023 Total Protein 6.1 g/dL 6.0 - 8.5 g/dL - November 062023 A/G Ratio 3.1 1.0 - 2.0 High November 26, 2023 Globulin (Calc) 1.5 g/dL 2.0 - 4.0 g/dL Low November 26, 2023 eNPCR 0.75 No Reference Ran ge Provided - November 26, 2023 Glucose 92 mg/dL 70 - 100 mg/dL - December 08, 2023 Immunochemistry Result Type Result Value Relevant Referen ce Range Interpretation Date HCV s/co ratio < 0.02 0.00 - 0.79 - May 27, 2023 Trace Elements Result Type Result Value Relevant Reference Range Interpre tation Date Aluminum < 5 mcg/L 0 - 10 mcg/L - March 30 Aluminum < 5 mcg/L 0 - 10 mcg/L - May Infectious Diseases Result Type Result Value Relevant Referen ce Range Interpretation Date HCV Ab (anti-HCV) Nonreactive No Reference R ishmael Provided - May 27, 2023 Hep B core Ab Total (anti-HBc) Negative No Reference Range Provided - November 26, 2023 Hep B Surface Ag (HBsAg) Negative No Reference Range Provided - November 26, 2023 Hep B Surface Ab (anti-HBs) < 10 mIU/mL No Reference Range Provided - November 26, 2023 DIALYSIS PRESCRIPTION Conventional Hemodialysis Data Element Value Order Date/Time December 05, 2023 Frequency 2X Week Treatment Days TueSat Dialyzer 180NRe Optiflux Treatment Time (Total Minutes) 210 min Blood Flow Rate (mL/min) 400 mL/min Dialysate Flow Rate Manual 800 Estimated Dry Weight 71.9 kg Dialysate Concentrate 2.0 K, 2.5 Ca, 1.0 Mg, 100 Dextrose (G2251) Sodium (mEq/L) 138 mEq/L Bicarb Machine Setting (mEq/L) 39 mEq/L Dialysis Access Hemodialysis-CV Cath eter-Tunneled, Chest, Right Subclavian TRANSPLANT WAITLIST STATUS No Information on Transplant Waitlist Status ADVANCE DIRECTIVES Directive Description Ordered By Effective Date Resuscitation status Full Code Elfego sam 2023 DIALYSIS TREATMENTS Conventional Hemodialysis Date Pre-Treatment Vitals Post-Treatment Gretel ls Duration (hr) BFR (mL/min) Dialysate Dialyzer Dialysis Access Meds Admin December 01, 2023 Weight 75.60 kg Weight 72.80 kg 02:59:00 400 2.0 K, 2.5 Ca, 1.0 Mg, 100 Dextrose (G2251) 180nre Optifl ux Blood Pressure-sitting 147/94 mmHg Blood Pressure-sit ting 101/63 mmHg Blood Pressure-standing 153/85 mmHg Blood Pressure-st anding 125/74 mmHg Heart Rate 69 beats per minute Heart Rate 92 beats per minute Respiratory Rate 16 breaths per minute Respiratory Rate 16 breaths per minute Temperature 98.8 deg. F Temperature 98.0 deg. F December 08, 2023 Weight 73.00 kg Weight 71.90 kg 03:04:00 340 2.0 K, 2.5 Ca, 1.0 Mg, 100 Dextrose (G2251) 180nre Optiflux Hemodialysis-CV Catheter-Tunneled, Chest, Right Subclavian Alteplase, Recombinant (Cathflo Activase) Declot; 2mg,Arterial Red Port Heparin Sodium (Porcine) 1,000 Units/mL Catheter Lock Arterial; 1800units,Arterial Red Port Heparin Sodium (Porcine) 1,000 Units/mL Catheter Lock Venous; 1800units,Venous Blue Port Heparin Sodium (Porcine) 1,000 Units/mL Systemic; 2000units,Intravenous - push Iron Sucrose (Venofer); 100mg,Intravenous - push Vitamin D (Calcitriol) Oral; 0.50mcg,Oral Blood Pressure-sitting 137/84 mmHg Blood Pressure-sit ting 130/64 mmHg Blood Pressure-standing 137/88 mmHg Blood Pressure-st anding 121/78 mmHg Heart Rate 77 beats per minute Heart Rate 97 beats per minute Respiratory Rate 16 breaths per minute Respiratory Rate 16 breaths per minute Temperature 97.7 deg. F Temperature 97.7 deg. F December 12, 2023 Weight 73.80 kg Weight 71.80 kg 03:00:00 400 2.0 K, 2.5 Ca, 1.0 Mg, 100 Dextrose (G2251) 180nre Optiflux Hemodialysis-CV Catheter-Tunneled, Chest, Right Subclavian Heparin Sodium (Porcine) 1,000 Units/mL Catheter Lock Arterial; 1800units,Arterial Red Port Heparin Sodium (Porcine) 1,000 Units/mL Catheter Lock Venous; 1800units,Venous Blue Port Heparin Sodium (Porcine) 1,000 Units/mL Systemic; 2000units,Intravenous - push Iron Sucrose (Venofer); 100mg,Intravenous - push Vitamin D (Calcitriol) Oral; 0.50mcg,Oral Blood Pressure-sitting 137/83 mmHg Blood Pressure-sit ting 125/84 mmHg Blood Pressure-standing 137/83 mmHg Blood Pressure-st anding 120/77 mmHg Heart Rate 69 beats per minute Heart Rate 80 beats per minute Respiratory Rate 16 breaths per minute Respiratory Rate 16 breaths per minute Temperature 97.6 deg. F Temperature 97.6 deg. F
--- OUTSIDE RECORDS SUMMARY | 2023-12-15 06:18 | XMS_ITS | Encounter Summary ---
Author Name Unknown Organization [facility] Address [address] [place] [id number] Care Team Providers Care Benzene Operator Name Role Phone Skyler Angel MD Unavailable Skyler Angel MD Unavailable Sugey Washington MD Primary Care Provider [phone] Encounter Details Date Type Department Care Team (Latest Contact Info) Description 11/03/2023 Travel Social History Tobacco Use Types Packs/Day Years [...] on file documented as of this encounter Visit Diagnoses Not on filedocumented in this encounter Care Teams Benzene Operator Relationship Specialty Start Date End Date Sugey Washington MD [address] [address] PCP - General Family Medicine 11/03/23 Skyler Angel MD [address] [place] [address] Internal Medicine 05/14/23 Skyler Angel MD [address] [place] [address] Internal Medicine 06/24/23 documented as of this encounter
--- OUTSIDE RECORDS SUMMARY | 2023-12-15 06:18 | XMS_ITS | Referral Summary ---
Author Name Unknown Organization [facility] Address [address] [place] [address] Care Team Providers Care Coo Name Role Phone None Reported, Pcp Primary Care Provider Unavail able Source Comments Patient records contain information from all sites at [facility]. For routine questions regarding patient records, call [phone] during business hours, M-F 8:00 AM - 5:00 PM Central Time. Record requests for emergency care only can be directed to [phone] at any time.[facility] Allergies No known active allergies Medications Medication [...] Hypertension And End Stage Renal Disease 023 Social History Tobacco Use Types Packs/Day Years [...] week 10/01/2022 How often do you attend chur ch or congregational services? Never 10/01/2022 Do you belong to any clubs o r organizations such as tenriism groups, unions, fraternal or athletic groups, or [...] Answer Date Recorded PHQ-2 Score 0 11/25/2022 [facility] - Occupational Stress [...] place to sleep or slept in a assisted (including now)? No 10/01/2022 Nutrition Answer Date [...] 02/10/2023 7:59 AM CDT Plan of Treatment Not on file Medical Devices Implanted Type Area Construction Electrician Device Identifier Shelf Expiration Date Model / Serial / Lot Implantable Port Implantable Port Right: Chest Description:Port in upper ri ght chest for dialysis Additional Health Concerns Infection Onset Date Last Indicated Protective Environment 12/12/2022 Care Teams Coo Relationship Specialty Start Date End Date None Reported, Pcp PCP - General Family Medicine 10/02/22
--- OUTSIDE RECORDS SUMMARY | 2023-12-15 06:18 | XMS_ITS | Encounter Summary ---
Author Name Unknown Organization [facility] Address [address] [place] [id number] Care Team Providers Care Backwinder Name Role Phone Skyler Angel MD Unavailable Skyler Angel MD Unavailable Reason for Visit * Reason Onset Date Comments Appointment 10/28/2023 Lab appt needed Encounter Details Date Type Department Care Team (Late st Contact Info) Description 10/28/[address] [address] Skyler Angel MD [address] [place] [address] Appointment (Lab appt needed) Social History Tobacco Use Types Packs/Day Years Used Date Smoking Tobacco: Never Assessed Adolescent Education Answer Date Record ed Getting School Help Needed Not on file 06/04 Sex and Gender Information Value Date Recorded Sex Assigned at Not on file Gender Identity Not on file Sexual Orientation Not on file documented as of this encounter Miscellaneous Notes * Telephone Encounter - Albertina Young LPN - 10/30/2023 10:45 AM EC TEACHER Called and spoke with pt. Pt agreed to have labs done at 10:30am prior to seeing Dr. Angel at 11:00am. Informed pt the labs are not fasting and will be both blood and urine collection. Confirmed clinic location. Pt had no further questions. Albertina Young LPN TEACHER * Telephone Encounter - Albertina Young LPN - 10/28/2023 10:03 AM EC TEACHER Attempted to contact pt. No answer. Message left to return call. Calling to discuss that Pt is scheduled for a Inclinic appt with Dr. Angel 11/03/23. Lab appt needed prior. Lab appt can be scheduled 1/2 hr prior to seeing Dr. Angel (Non fasting collection will be both blood and urine.) Albertina Young LPN TEACHER documented in this encounter Plan of Treatment Not on file documented as of this encounter Visit Diagnoses Not on filedocumented in this encounter Care Teams Backwinder Relationship Specialty Start Date End Date Skyler Angel MD [address] [place] [address] Internal Medicine 05/14/23 Skyler Angel MD [address] [place] [address] Internal Medicine 06/24/23 documented as of this encounter
--- OUTSIDE RECORDS SUMMARY | 2023-12-15 06:19 | XMS_ITS | Encounter Summary ---
Author Name Unknown Organization [facility] Address [address] [facility] [address] [place] [address] Care Team Providers Care Testing And Regulating Chief Name Role Phone Unavailable Primary Care Provider Unavailabl e Encounter Details Date Type Department Care Team Description 10/01/2023 Orders Only [facility] [address] [place] [address] Elfego Mcnamara MD [address] [place] [address] Social History Tobacco Use Types Packs/Day Years Used Date Smoking Tobacco: Never Assessed Sex and Gender Information Value Date Recorded Sex Assigned at Not on file Gender Identity Not on file Sexual Orientation Not on file documented as of this encounter Plan of Treatment Not on file documented as of this encounter Procedures Procedure Name Priority Date/Time Associated Diagnosis Comments HEMATOLOGY Routine 10/01/2023 documented in this encounter Results * (ABNORMAL) HEMATOLOGY (10/01/2023) Hemoglobin 12.4(L) 14.0 - 18.0 g/dL [facility] Hemoglobin x 3 37.2(L) 42.0 - 54.0 % [facility] 10/01/2023 10/02/2023 6:3 3 AM CHART COLLECTOR Narrative [facility] - 10/02/2023 Unless otherwise specified, test(s) performed at: [facility], [address] [place] [address], [place] [address] DIRECTOR OF REVENUE CYCLE MANAGEMENT: Ramírez Jackman M.D., Ph.D For any questions, please call customer service at FREQUENCY:OTHER Resulting Agency Comment Specimen source: Blood Elfego Mcnamara MD LAB BLOOD ORDERABLES [facility] documented in this encounter Visit Diagnoses Not on filedocumented in this encounter
--- OUTSIDE RECORDS SUMMARY | 2023-12-15 06:19 | XMS_ITS | Encounter Summary ---
Author Name Unknown Organization [facility] Address [address] [place] [address] Care Team Providers Care Python Programmer Name Role Phone Unavailable Primary Care Provider Unavailabl e Encounter Details Date Type Department Care Team Description 09/10/2023 Treatment [facility] [address] [place] [address] Elfego Mcnamara MD [address] [facility] [address] [place] [address] Social History Tobacco Use Types Packs/Day Years Used Date Smoking Tobacco: Never Assessed Sex and Gender Information Value Date Recorded Sex Assigned at Not on file Gender Identity Not on file Sexual Orientation Not on file documented as of this encounter Miscellaneous Notes * Dialysis Note - Elfego Mcnamara MD - 09/10/2023 9:40 AM CST Date: Sep 10, 2023 Patient Name: Rickie Broderick : 1960 Chart #: [id number] Sex: M Patient Type: ESRD Modality: Hemodialysis Primary Cause of Renal Failure: C90.00 - Multiple myeloma Medical Office Administrator: Elfego Mcnamara MD Location: [phone] Schedule: 1st Shift Initial Access Date Regular Chronic Dialysis Began: 07/26/2022Initial Modality: Hemodialysis Initial Access used on first patient dialysis: Catheter - No Reason Selected Current Access Access used for current outpatient dialysis: Catheter - No Reason Selected Elfego Mcnamara MD [ Signed And locked electronically On 09/10/2023 at 08:40:54 AM ] Transcribed: Elfego Mcnamara MD ( 09/10/2023 ) * Dialysis Note - Elfego Mcnamara MD - 09/10/2023 8:46 AM CST Date: Sep 10, 2023 Patient Name: Rickie Broderick : 1960 Chart #: [id number] Sex: M This patient was personally seen for a complete visit as part of routine monthly dialysis care. A review of the dialysis treatment, blood pressure, estimated dry weight and recent lab values was made. These were discussed with the patient and staff as necessary. Treatment Data for 09/10/2023 started at:5:30 AM Dialyzer: 180NRe Optiflux Na: 138 mEq/L Bicarb: 35 mEq/L Dialysate: 3.0 K, 2.5 Ca, 1.0 Mg, 100 Dextrose (G3251) Dialysate/Machine Temp (prescribed): 37 C Dialysate/Machine Temp (actual): 37 C BFR (prescribed): 400 BFR (actual): n/a Prescribed time: 03:00 EDW: 70 kg Access Type: Active (In Use):CVCatheter-Tunneled/Chest Pre Dialysis Vitals (for 09/10/2023 5:21 AM ) Pre BP (sit): 131/82 Pre Wt: 74.2 kg Temp: 97 F Post Dialysis Vitals (for 09/08/2023 8:33 AM ) Post BP (sit): 163/89 Post Wt: 72.9 kg Current Dialysis Vitals (for 09/10/2023 8:30 AM ) BP (sit): 140/70 AP(-) / SERVICE MECHANIC: n/a Pulse: 80 Chairside data as of 09/10/2023 8:30 AM Last 3 Treatments 09/09/2023 (Absent) 09/08/2023 09/06/2023 (Absent) EDW (kg) 70 Weight Pre (kg) 75.8 Weight Post (kg) 72.9 Dialytic Weight Loss (kg) -2.9 EDW Deviation (kg) 2.9 BP Sit Pre 147/84 BP Sit Post 163/89 UF Rate (mL/kg/hr) 14 Prescribed BFR 400 Average Delivered BFR 400 Prescribed Treatment Time 03:00 Actual Treatment Time 03:03 CIVIL DIVISION DEPUTY SHERIFF: Elfego Mcnamara MD LOCATION: [phone] SCHEDULE: 1st Shift EDW: kg. DIALYZER: HD DURATION: NEEDLE SIZE: ANTICOAG: BATH: QB: ml/min QD: ml/min Subjective 09/10/23: Feels well, has gained wt. continues MAB Rx monthly for MM and this finishes February and repeat BMBx then. Has appt for ANW Txp (pt requested second opinion) since turned down at [place]. TThim today, with MM he is not a candidate. Also has a second opinion at [facility] 10/15/23 for his MM andESRD dxs. Likes TTS better, less conflict with work schedule. 08/21/23: feels well. no SOB or CP. AVF pushed to September. 07/20/23: Feels well. having his AVF surgery tomorrow at [facility]. no SOB or CP. 06/15/23: Feels well. long discussion about AVF and he is now willing to get it done. no SOB or CP. 03/16/23: Feels fine. completes chemo 03/31/23. Long discussion about arm access and is willing togo for vein map and surgeon consult to [facility] and potentially get it scheduled after chemo completes.No SOB or CP. 03/02/23: Feels fine, moved to first shirt. No SOB or CP. 01/19/23: Feels well. has a BMBx at [place] 02/10/23. No HD issues. no sob. stable wt. good uop. 12/22/22: Seen with Ciera, TOBI. I independently reviewed, assessed and examined this pt and made the A/P with Ciera. See below for details. 12/10/22: Seen with Ciera TOBI. I independently reviewed, assessed and examined this pt and made the A/P with Ciera. See below for details 11/24/22: Feels fine today. has appt at [facility] tomorrow regarding MM Rx and considering possible BMTxp. Still getting chemo weekly on . Is NOT interested in home dialysis after thinking about itmore. Has appt for AVF creation 12/04/22 at [facility]. 11/05/22: We converted him from ELAINA-D to ESRD on 11/03/22. Feels fine today. no new issues. see ELAINA note from 10/31/22 for other details. No SOB or CP Advanced Practitioner Subjective CREATIVE SERVICES PRODUCER 02/11/2023: Spoke with patient on dialysis. Doing well. Denies SOB, chest pain, cramping or dizziness. Leaving below EDW. BP stable. PCAD functional. CREATIVE SERVICES PRODUCER 12/22/22: Patient seen on HD, denies SOB, chest pain, or dizziness. Denies cramping. He is open to seeing [facility] for vein mapping in preparation for AVF. Doing well otherwise. CREATIVE SERVICES PRODUCER 12/10/22: Patient seen on HD. He has an appt with [facility] tomorrow for iothalamate clearance testing.Tolerating dialysis, denies SOB, chest pain, dizziness, or cramping. Using PCAD, getting to EDW. Review of Systems None reported. Problem List Description ICD9 Code ICD10 Code Multiple myeloma 203.00 C90.00 End stage renal disease 585.6 N18.6 Dependence on renal dialysis V45.11 Z99.2 Exam Respiratory - Clear to auscultation bilaterally. Cardiovascular - Regular rate. Regular rhythm. Edema - No leg edema. Access - PCAD working well, no redness 09/10/23: AVF planned at [facility] later in Sep. Medication List Medication Sig Start Date allopurinol 100 mg tablet take half tablet every 48 hrs by mouth B complex-vitamin C-folic acid 1 mg tablet Take 1 tablet by mouth once a day oxycodone immediate release tablet 5mg take 5mg by mouth every 4 hrs as needed for pain senna 8.6mg tablet take 17.2mg by mouth once daily if needed for constipation Allergy List Allergen Reaction Reaction Severity Onset Date nkda Medications reviewed and no changes were made. Treatment and Adequacy Assessment BUN mg/dL 59 (08/14/23) 60 (08/10/23) 68 (06/29/23) 54 (05/27/23) 39 (05/04/23) UREA NITROGEN (MG/DL) IN SER/PLAS - POST DIALYSIS mg/dL 15 (08/14/23) 23 (08/10/23) 15 (06/29/23) 14 (05/27/23) 10 (05/04/23) URR % 75 (08/14/23) 62 (08/10/23) 78 (06/29/23) 74 (05/27/23) 74 (05/04/23) spKt/V Gotch 1.69 (08/14/23) 1.16 (08/10/23) 1.72 (06/29/23) 1.55 (05/27/23) 1.65 (05/04/23) eKdrt/V 1.39 (08/14/23) .78 (08/10/23) 1.41 (06/29/23) 1.27 (05/27/23) 1.35 (05/04/23) spKt/V (Daugirdas II) 1.6100 (08/14/23) 1.0900 (08/10/23) 1.7100 (06/29/23) 1.5200 (05/27/23) 1.6100 (05/04/23) Dialysis is adequate. Achieves prescribed time - Yes Achieves prescribed frequency - Yes Missed treatments in past 30 days - 0 Continue current prescription. 01/19/23: May labs pending 11/24/22: adequated despite using a PCAD. has some RRF. Vascular Access Assessment Type of access: Catheter Surgeon - PCAD at [facility]--> [facility] Staff and patient report access is working well. Send to Surgeon for access creation. 07/20/23: AVF creation 07/21/23 at [facility] 06/15/23: willing to go for vein mapping and consult, then creation [facility] 03/16/23: willing to go for vein mapping and consult, then creation after chemo finishes. 03/02/23: needs access creation 11/05/22: has appt at [facility] 12/04/22 Anemia Assessment HEMOGLOBIN (G/DL) IN BLOOD g/dL 9.9 (09/08/23) 10.9 (08/26/23) 11.6 (08/19/23) 12.0 (08/10/23) 12.2 (08/07/23) PLATELETS 1000/mcL 197 (08/10/23) 188 (08/07/23) 178 (06/29/23) 160 (05/27/23) 136 (04/22/23) FERRITIN ng/mL 747 (08/10/23) 686 (08/07/23) 1070 (05/27/23) 558 (03/30/23) 754 (12/26/22) TRANSFERRIN SAT% % 37 (08/10/23) 72 (08/07/23) 41 (06/29/23) 46 (05/27/23) 50 (04/22/23) Hemoglobin is at goal. Iron Saturation is at goal. Ferritin is at goal. Will adjust NORMA and intravenous iron per protocol. 01/19/23: BMBx at [facility] 02/10/23 planned for Myeloma f/u. not on EPO Nutritional and Metabolic Assessment ALBUMIN (G/DL) g/dL 4.1 (08/10/23) 4.4 (08/07/23) 4.4 (06/29/23) 4.6 (05/27/23) 4.1 (04/22/23) Sodium mEq/L 135 (08/10/23) 135 (08/07/23) 137 (06/29/23) 134 (05/27/23) 138 (04/22/23) POTASSIUM (MMOL/L) IN SER/PLAS mEq/L 4.3 (08/10/23) 4.3 (08/07/23) 5.1 (06/29/23) 4.6 (05/27/23) 4.6 (04/22/23) BICARBONATE (CO2) mEq/L 22 (08/10/23) 21 (08/07/23) 19 (06/29/23) 21 (05/27/23) 23 (04/22/23) 25 OH VITAMIN D ng/mL 42.0 (08/07/23) 25.1 (05/27/23) Albumin is at goal. Potassium is at goal. Bicarbonate is at goal. Continue same bicarbonate in dialysate. Bone and Mineral Metabolism Assessment CALCIUM mg/dL 8.9 (08/10/23) 9.5 (08/07/23) 8.7 (06/29/23) 9.1 (05/27/23) 8.7 (04/22/23) CALCIUM (MG/DL) CORRECTED FOR ALBUMIN IN SER/PLAS mg/dL 8.8 (08/10/23) 9.2 (08/07/23) 8.4 (06/29/23) 8.6 (05/27/23) 8.6 (04/22/23) PHOSPHATE (MG/DL) IN SER/PLAS mg/dL 4.0 (08/10/23) 3.4 (08/07/23) 4.2 (06/29/23) 5.0 (05/27/23) 5.1 (04/22/23) CALCIUM PHOSPHORUS PRODUCT, COR 35 (08/10/23) 31 (08/07/23) 35 (06/29/23) 43 (05/27/23) 44 (04/22/23) IPTH pg/mL 267 (08/10/23) 144 (08/07/23) 364 (06/29/23) 430 (05/27/23) 310 (03/27/23) Corrected Calcium is at goal. Phosphorous is at goal. Ca X P product is at goal. Intact PTH is at goal. Transport Pilot will adjust binders and vitamin D per protocol and continue to provide dietary education. Cardiovascular Assessment Blood pressures reviewed and are acceptable. Intradialytic weight gains are appropriate. Estimated dry weight is appropriate. 06/15/23: EDW 70 is stable CREATIVE SERVICES PRODUCER 02/11/2023: EDW decreased to 69 kg Transplant Status: Patient has been referred. [facility] for BMT first Resuscitation Status Discussed with patient who requested Full Code. Elfego Mcnamara MD [ Signed And locked electronically On 09/10/2023 at 08:48:45 AM ] Transcribed: Elfego Mcnamara ( 09/10/2023 ) documented in this encounter Plan of Treatment Not on file documented as of this encounter Visit Diagnoses Not on filedocumented in this encounter
--- OUTSIDE RECORDS SUMMARY | 2023-12-15 06:19 | XMS_ITS | Encounter Summary ---
Author Name Unknown Organization [facility] Address [address] [place] [address] Care Team Providers Care Track Oiler Name Role Phone Unavailable Primary Care Provider Unavailabl e Encounter Details Date Type Department Care Team Description 11/26/2023 Orders Only [facility] [address] [place] [address] Elfego Mcnamara MD [address] [place] [address] Social History Tobacco Use Types Packs/Day Years Used Date Smoking Tobacco: Never Assessed Sex and Gender Information Value Date Recorded Sex Assigned at Not on file Gender Identity Not on file Sexual Orientation Not on file documented as of this encounter Plan of Treatment Not on file documented as of this encounter Procedures Procedure Name Priority Date/Time Associated Diagnosis Comments HD KINETICS Routine 11/26/2023 POST CHEMISTRY Routine 11/26/2023 IMMUNO CHEMISTRY Routine 11/26/2023 HEMATOLOGY Routine 11/26/2023 CHEMISTRY Routine 11/26/2023 SPECTRA ISABEL LAB RESULTS Routine 11/26/2023 documented in this encounter Results * Spectra ISABEL Lab Results (11/26/2023) eKt/V (Louis) 1.21 ISABEL eKdrt/V 1.23 ISABEL eNPCR 0.75 ISABEL WSTDKT/V 1.6 ISABEL spKt/V Gotch 1.50 ISABEL PCR 40.62 ISABEL eKt/V Gotch 1.23 ISABEL spKt/V (Daugirdas II) 1.45 ISABEL nPCR_HD 0.85 ISABEL 11/26/2023 11/26/2023 Isabel Ordering Provider LAB BLOOD ORDERABLE S Performing Organization Address [facility] Co de Phone Number ISABEL * HD KINETICS (11/26/2023) % Urea Reduction 70 65 - 80 % [facility]PS [facility] 11/26/2023 11/27/2023 8:1 1 AM CDT Narrative Resulting Agency Comment Specimen source: Plasma Elfego Mcnamara MD LAB BLOOD ORDERABLES Performing Organization Address [facility] de Phone Number APS SPECTRA [facility] * POST CHEMISTRY (11/26/2023) BUN Post Dialysis 13 6 - 19 mg/dL [facility] 11/26/2023 11/27/2023 8:1 1 AM CDT Narrative [facility]PS [facility] - 11/27/2023 Unless otherwise specified, test(s) performed at: [facility], [address] [place] [address], [place] [address] PASSENGER AGENT: Ramírez Jackman M.D., Ph.D For any questions, please call customer service at FREQUENCY:MONTHLY Resulting Agency Comment Specimen source: Plasma Elfego Mcnamara MD LAB BLOOD ORDERABLES Performing Organization Address [facility] de Phone Number [facility] * (ABNORMAL) Spectrae Chemistry (11/26/2023) BUN 44(H) 6 - 19 mg/dL [facility] Creatinine 8.86(H) 0.60 - 1.30 mg/dL [facility] BUN/Creatinine Ratio 5.0(L) 10.0 - 20.0 [facility] Sodium 137 136 - 145 mEq/L [facility] Potassium 4.6 3.5 - 5.1 mEq/L [facility] Chloride 102 96 - 108 mEq/L [facility] Bicarbonate (CO2) 24 20 - 31 mEq/L [facility] Calcium 9.6 8.7 - 10.4 mg/dL [facility] Comment: Please note change in reference range. Corrected Calcium 9.1 8.7 - 10.4 mg/dL [facility] Comment: Corrected Calcium is not equivalent to measured Ionized Calcium. Phosphorus 4.8(H) 2.6 - 4.5 mg/dL [facility] Calcium Phosphorus Product 46 0 - 54 [facility] Calcium Phosporus Product, Cor 44 0 - 54 [facility] Total Protein 6.1 6.0 - 8.5 g/dL [facility] Albumin 4.6 3.5 - 5.2 g/dL [facility] Globulin, Total 1.5(L) 2.0 - 4.0 g/dL [facility] A/G Ratio 3.1(H) 1.0 - 2.0 APS SPECTR A [facility] Iron 74 45 - 160 mcg/dL [facility] UIBC 214 155 - 355 mcg/dL [facility] TIBC 288 185 - 515 mcg/dL [facility] Iron Saturation (TSat) 26 20 - 55 % [facility] 11/26/2023 11/27/2023 4:2 7 AM CDT Narrative [facility] - 11/27/2023 Unless otherwise specified, test(s) performed at: [facility], [address] [place] [address], [place] [address] PASSENGER AGENT: Ramírez Jackman M.D., Ph.D For any questions, please call customer service at FREQUENCY:MONTHLY Resulting Agency Comment Specimen source: Serum Elfego Mcnamara MD LAB BLOOD ORDERABLES [facility] * (ABNORMAL) HEMATOLOGY (11/26/2023) WBC 5.30 4.80 - 10.80 1000/mcL [facility] RBC 3.10(L) 4.70 - 6.10 mill/mcL [facility] Hematocrit 34.0(L) 42.0 - 52.0 % [facility] MCV 110(H) 80 - 100 fl [facility] MCH 36.4(H) 27.0 - 31.0 pg [facility] MCHC 33.2 30.0 - 36.0 g/dL [facility] RDW 12.9 11.5 - 14.5 % [facility] Hemoglobin 11.3(L) 14.0 - 18.0 g/dL [facility] Hemoglobin x 3 33.9(L) 42.0 - 54.0 % [facility] Platelets 231 130 - 400 1000/mcL [facility] 11/26/2023 11/27/2023 2:4 6 AM CDT Narrative [facility] - 11/27/2023 Unless otherwise specified, test(s) performed at: [facility], [address] [place] [address], [place] [address] PASSENGER AGENT: Ramírez Jackman M.D., Ph.D For any questions, please call customer service at FREQUENCY:MONTHLY Resulting Agency Comment Specimen source: Blood Elfego Mcnamara MD LAB BLOOD ORDERABLES [facility] * IMMUNO CHEMISTRY (11/26/2023) Pathologist [facility] Hep B Surface Ag Negative Negative APS [...] 11/27/2023 2:3 1 AM CDT Narrative APS BRANDON KSETHANN - 11/27/2023 Unless otherwise specified, test(s) performed at: [facility], [address] [place] [address], [place] [address] PASSENGER AGENT: Ramírez Jackman M.D., Ph.D For any questions, please call customer service at FREQUENCY:MONTHLY Resulting Agency Comment Specimen source: Plasma Elfego Mcnamara MD LAB BLOOD ORDERABLES [facility] documented in this encounter Visit Diagnoses Not on filedocumented in this encounter
--- OUTSIDE RECORDS SUMMARY | 2023-12-15 06:19 | XMS_ITS | Encounter Summary ---
Author Name Unknown Organization [facility] Address [address] [place] [address] Care Team Providers Care Roller Inspector Name Role Phone Unavailable Primary Care Provider Unavailabl e Encounter Details Date Type Department Care Team Description 10/08/2023 Orders Only [facility] [place] [address] [place] [address] Elfego Mcnamara MD [address] [place] [address] Social History Tobacco Use Types [...] Date/Time Associated Diagnosis Comments HD KINETICS Routine 10/08/2023 POST CHEMISTRY Routine 10/08/2023 IMMUNO CHEMISTRY Routine 10/08/2023 HEMATOLOGY Routine 10/08/2023 CHEMISTRY Routine 10/08/2023 SPECTRA ISABEL LAB RESULTS Routine 10/08/2023 documented in this encounter Results * Spectra ISABEL Lab Results (10/08/2023) eKt/V Gotch 1.34 ISABEL spKt/V Gotch 1.62 ISABEL nPCR_HD 1.14 ISABEL eKt/V ([place]) 1.32 ISABEL eKdrt/V 1.34 ISABEL eNPCR 0.99 ISABEL PCR 52.28 ISABEL WSTDKT/V 1.6 ISABEL spKt/V (Daugirdas II) 1.57 ISABEL 10/08/2023 10/08/2023 Isabel Ordering Provider LAB BLOOD ORDERABLE S Performing Organization Address [facility] Co de Phone Number ISABEL * HD KINETICS (10/08/2023) % Urea Reduction 74 65 - 80 % [facility] 10/08/2023 10/09/2023 4:1 2 AM EXAMINATION SUPERVISOR Narrative Resulting Agency Comment Specimen source: Plasma Elfego Mcnamara MD LAB BLOOD ORDERABLES Performing Organization Address [facility] de Phone Number [facility]PS [facility]RA [facility] * POST CHEMISTRY (10/08/2023) BUN Post Dialysis 16 6 - 19 mg/dL [facility] 10/08/2023 10/09/2023 4:1 2 AM EXAMINATION SUPERVISOR Narrative [facility]PS [facility] - 10/09/2023 Unless otherwise specified, test(s) performed at: [facility], [address] [place] [address], [place] [address] MANAGER ORACLE: Ramírez Jackman M.D., Ph.D For any questions, please call customer service at FREQUENCY:MONTHLY Resulting Agency Comment Specimen source: Plasma Elfego Mcnamara MD LAB BLOOD ORDERABLES Performing Organization Address [facility] de Phone Number [facility]PS [facility]RA [facility] * (ABNORMAL) Spectrae Chemistry (10/08/2023) BUN 62(H) 6 - 19 mg/dL [facility] Creatinine 7.51(H) 0.60 - 1.30 mg/dL [facility] BUN/Creatinine Ratio 8.3(L) 10.0 - 20.0 [facility] Sodium 138 136 - 145 mEq/L [facility] Potassium 5.2(H) 3.5 - 5.1 mEq/L [facility] Chloride 110(H) 96 - 108 mEq/L [facility] Bicarbonate (CO2) 17(L) 20 - 31 mEq/L [facility] Calcium 8.5(L) 8.7 - 10.4 mg/dL [facility] Comment: Please note change in reference range. Corrected Calcium 8.5(L) 8.7 - 10.4 mg/dL [facility] Comment: Corrected Calcium is not equivalent to measured Ionized Calcium. Phosphorus 5.5(H) 2.6 - 4.5 mg/dL [facility] Calcium Phosphorus Product 47 0 - 54 [facility] Calcium Phosporus Product, Cor 47 0 - 54 [facility] Total Protein 5.4(L) 6.0 - 8.5 g/dL [facility] Albumin 4.0 3.5 - 5.2 g/dL [facility] Globulin, Total 1.4(L) 2.0 - 4.0 g/dL [facility] A/G Ratio 2.9(H) 1.0 - 2.0 APS SPECTR A [facility] Iron 60 45 - 160 mcg/dL [facility] UIBC 176 155 - 355 mcg/dL [facility] TIBC 236 185 - 515 mcg/dL [facility] Iron Saturation (TSat) 25 20 - 55 % [facility] 10/08/2023 10/09/2023 4:2 8 AM EXAMINATION SUPERVISOR Narrative [facility] - 10/09/2023 Unless otherwise specified, test(s) performed at: [facility], [address] [place] [address], [place] [address] MANAGER ORACLE: Ramírez Jackman M.D., Ph.D For any questions, please call customer service at FREQUENCY:MONTHLY Resulting Agency Comment Specimen source: Serum Elfego Mcnamara MD LAB BLOOD ORDERABLES [facility] * (ABNORMAL) HEMATOLOGY (10/08/2023) WBC 4.83 4.80 - 10.80 1000/mcL [facility] RBC 3.44(L) 4.70 - 6.10 mill/mcL [facility] Hematocrit 37.5(L) 42.0 - 52.0 % [facility] MCV 109(H) 80 - 100 fl [facility] MCH 38.5(H) 27.0 - 31.0 pg [facility] MCHC 35.3 30.0 - 36.0 g/dL [facility] RDW 14.1 11.5 - 14.5 % [facility] Hemoglobin 13.2(L) 14.0 - 18.0 g/dL [facility] Hemoglobin x 3 39.6(L) 42.0 - 54.0 % [facility] Platelets 196 130 - 400 1000/mcL [facility] 10/08/2023 10/09/2023 4:0 4 AM EXAMINATION SUPERVISOR Narrative [facility] - 10/09/2023 Unless otherwise specified, test(s) performed at: [facility], [address] [place] [address], [place] [address] MANAGER ORACLE: Ramírez Jackman M.D., Ph.D For any questions, please call customer service at FREQUENCY:MONTHLY Resulting Agency Comment Specimen source: Blood Elfego Mcnamara MD LAB BLOOD ORDERABLES [facility] * IMMUNO CHEMISTRY (10/08/2023) Hep B Surface Ag Negative Negative APS [...] methods or kits cannot be used interchangeably. 10/08/2023 10/09/2023 3:5 6 AM EXAMINATION SUPERVISOR Narrative FABIEN TAYLOR [facility] - 10/09/2023 Unless otherwise specified, test(s) performed at: [facility], [address] [place] [address], [place] [address] MANAGER ORACLE: Ramírez Jackman M.D., Ph.D For any questions, please call customer service at FREQUENCY:MONTHLY Resulting Agency Comment Specimen source: Plasma Elfego Mcnamara MD LAB BLOOD ORDERABLES FABIEN TAYLOR [facility] documented in this encounter Visit Diagnoses Not on filedocumented in this encounter
--- OUTSIDE RECORDS SUMMARY | 2023-12-15 06:19 | XMS_ITS | Encounter Summary ---
Author Name Unknown Organization [facility] Address [address] [facility] [address] [place] [address] Care Team Providers Care Superintendent Maintenance Airports Name Role Phone Unavailable Primary Care Provider Unavailabl e Encounter Details Date Type Department Care Team Description 11/05/2023 Orders Only [facility] [place] [address] [place] [address] Elfego Mcnamara MD [address] [place] [address] Social History Tobacco Use Types [...] Priority Date/Time Associated Diagnosis Comments HEMATOLOGY Routine 11/05/2023 documented in this encounter Results * (ABNORMAL) HEMATOLOGY (11/05/2023) Hemoglobin 11.3(L) 14.0 - 18.0 g/dL [facility] Hemoglobin x 3 33.9(L) 42.0 - 54.0 % [facility] 11/05/2023 11/06/2023 6:4 6 AM DISCOVERY MANAGER Narrative [facility]PS [facility] - 11/06/2023 Unless otherwise specified, test(s) performed at: [facility], [address] [place] [address], [place] [address] BOY'S ADVISER: Ramírez Jackman M.D., Ph.D For any questions, please call customer service at FREQUENCY:OTHER Resulting Agency Comment Specimen source: Blood Elfego Mcnamara MD LAB BLOOD ORDERABLES [facility] documented in this encounter Visit Diagnoses Not on filedocumented in this encounter
--- OUTSIDE RECORDS SUMMARY | 2023-12-15 06:19 | XMS_ITS | Encounter Summary ---
Author Name Unknown Organization [facility] Address [address] [facility] [address] [place] [address] Care Team Providers Care Drapery Cutter Name Role Phone Unavailable Primary Care Provider Unavailabl e Encounter Details Date Type Department Care Team Description 11/12/2023 Orders Only [facility] [place] [address] [place] [address] Elfego Mcnamara MD [address] [place] [address] Social History Tobacco Use Types [...] Priority Date/Time Associated Diagnosis Comments HEMATOLOGY Routine 11/12/2023 documented in this encounter Results * (ABNORMAL) HEMATOLOGY (11/12/2023) Hemoglobin 11.4(L) 14.0 - 18.0 g/dL [facility] Hemoglobin x 3 34.2(L) 42.0 - 54.0 % [facility] 11/12/2023 11/13/2023 1:2 5 PM MEDICAL RECORD ASSISTANT Narrative [facility] - 11/13/2023 Unless otherwise specified, test(s) performed at: [facility], [address] [place] [address], [place] [address] DYE WEIGHER: Ramírez Jackman M.D., Ph.D For any questions, please call customer service at FREQUENCY:OTHER Resulting Agency Comment Specimen source: Blood Elfego Mcnamara MD LAB BLOOD ORDERABLES [facility] documented in this encounter Visit Diagnoses Not on filedocumented in this encounter
--- OUTSIDE RECORDS SUMMARY | 2023-12-15 06:19 | XMS_ITS | Encounter Summary ---
Author Name Unknown Organization [facility] Address [address] [facility] [address] [place] [address] Care Team Providers Care Mat Packer Name Role Phone Unavailable Primary Care Provider Unavailabl e Encounter Details Date Type Department Care Team Description 09/08/2023 Orders Only [facility] [place] [address] [place] [address] Elfego Mcnamara MD [address] [place] [address] Social History Tobacco Use Types [...] Priority Date/Time Associated Diagnosis Comments HEMATOLOGY Routine 09/08/2023 documented in this encounter Results * (ABNORMAL) HEMATOLOGY (09/08/2023) Hemoglobin 9.9(L) 14.0 - 18.0 g/dL [facility] Hemoglobin x 3 29.7(L) 42.0 - 54.0 % [facility] 09/08/2023 09/09/2023 12: 30 PM ELEMENTARY READING TUTOR Narrative [facility] - 09/09/2023 Unless otherwise specified, test(s) performed at: [facility], [address] [place] [address], [place] [address] PHILOSOPHY AND RELIGION INSTRUCTOR: Ramírez Jackman M.D., Ph.D For any questions, please call customer service at FREQUENCY:OTHER Resulting Agency Comment Specimen source: Blood Elfego Mcnamara MD LAB BLOOD ORDERABLES [facility] documented in this encounter Visit Diagnoses Not on filedocumented in this encounter
--- OUTSIDE RECORDS SUMMARY | 2023-12-15 06:19 | XMS_ITS | Encounter Summary ---
Author Name Unknown Organization [facility] Address [address] [facility] [address] [place] [address] Care Team Providers Care Container Repairer Name Role Phone Unavailable Primary Care Provider Unavailabl e Encounter Details Date Type Department Care Team Description 11/19/2023 Orders Only [facility] [place] [address] [place] [address] Elfego Mcnamara MD [address] [place] [address] Social History Tobacco Use Types [...] Priority Date/Time Associated Diagnosis Comments HEMATOLOGY Routine 11/19/2023 documented in this encounter Results * (ABNORMAL) HEMATOLOGY (11/19/2023) Hemoglobin 10.9(L) 14.0 - 18.0 g/dL [facility] Hemoglobin x 3 32.7(L) 42.0 - 54.0 % [facility] 11/19/2023 11/20/2023 12: 56 PM CDT Narrative [facility] - 11/20/2023 Unless otherwise specified, test(s) performed at: [facility], [address] [place] [address], [place] [address] CLINICAL LABORATORY TECHNICIAN: Ramírez Jackman M.D., Ph.D For any questions, please call customer service at FREQUENCY:OTHER Resulting Agency Comment Specimen source: Blood Elfego Mcnamara MD LAB BLOOD ORDERABLES [facility] documented in this encounter Visit Diagnoses Not on filedocumented in this encounter
--- OUTSIDE RECORDS SUMMARY | 2023-12-15 06:19 | XMS_ITS | Clinical Summary ---
Author Name Unknown Organization [employer] [facility] Address [place], [place] [address] Care Team Providers Care Laundromat Manager Name Role Phone Sugey Wsahington MD Primary Care Provider [phone] Allergies No known active allergies Medications Medication Sig Dispensed Refills Start Date End Date Status allopurinoL (ZYLOPRIM) 100 mg tabletIndications:Mu ltiple myeloma not having achieved remission (HC) Take 1 Tablet (100 mg) by mouth every Thursday, Thursday and Thursday. 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 On dialysis days, take after dialysis. 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 Max acetaminophen dose: 4000mg in 24 hrs. 0 08/01/2022 Active amLODIPine (NORVASC) 5 mg tabletIndications:Pr imary hypertension Take 1 Tablet (5 mg) by mouth once daily. 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 Total daily dose is 40 mg. Cycle 1 started 07/29/22. 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 Day 1 of chemotherapy cycle was 07/29/22. 17 Tablet 08/05/2022 Active sennosides (Senna) 8.6 mg tabletIndications:Co nstipation, unspecified constipation type Take 1-2 Tablets (8.6-17.2 mg) by mouth once daily if needed for Constipation. 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 15 Tablet 08/01/2022 Active Active Problems Problem Noted Date Diagnosed Date ELAINA (acute kidney injury) 07/29/2022 Anemia 07/29/2022 CKD (chronic kidney disease) stage 5, GFR less than 15 ml/min 07/26/2022 Multiple myeloma 07/26/2022 Elevated blood pressure 09/22/2014 Encounters Date Type Department Care Team Description 10/19/2023 Telephone [facility] Kidney Transplant Providers [address] [address] Genet Chow RN Transplant Eval (Transplant Team Recommendation - Discharge) 10/09/2023 9:00 AM TESTER ROCKET ENGINE Office Visit [facility] Kidney Transplant Providers [address] [address] Yousuf Yi MD Transplant Eval (Nephrology Visit) 10/09/2023 Travel 09/25/2023 Telephone [facility] Kidney Transplant Providers [address] [address] Genet Chow RN Transplant Eval (Initial Contact) 09/24/2023 Telephone [facility] Kidney Transplant Providers [address] [facility] [address] [place] [address] Genet Chow calender operator helper Eval (Initial Contact) 09/15/2023 Telephone [facility] Kidney Transplant Providers [address] [facility] [address] [place] [address] Genet Chow calender operator helper Eval (Initial Contact) from Last 3 Months Immunizations Name Administration Dates Next Due Td (Age >=7 Years) 04/28/2003 Tdap 02/12/2011 Family History Medical History Relation Name Comments Cancer-prostate Maternal Grandfather Good Health Mother Cancer-breast Sister Relation Name Status Comments Maternal Grandfather Mother Sister Social History Tobacco Use Types Packs/Day Years Used Date Smoking Tobacco: Never Cigars Smokeless Tobacco: Current Chew Tobacco Cessation:Ready to Q uit: No; Counseling Given: Yes Comments:Patient declined information Alcohol Use Standard Drinks/Week Comments No 0 (1 standard drink = 0.6 oz pur e alcohol) Seldom Social Connections Answer Date Recorded Frequency of Communication with Friends and Fami ly Not on file 10/09/2023 Sex and Gender Information Value Date Recorded Sex Assigned at Not on file Gender Identity Not on file Sexual Orientation Not on file Obstetrics History Last Filed Vital Signs Vital Sign Reading Time Taken Comments Blood Pressure 132/82 08/06/2022 10:57 AM TESTER ROCKET ENGINE Pulse 84 08/06/2022 10:57 AM TESTER ROCKET ENGINE Temperature 36.9 ??C (98.5 ??F) 08/06/2022 1 0:57 AM TESTER ROCKET ENGINE Respiratory Rate 16 08/06/2022 10:5 7 AM TESTER ROCKET ENGINE Oxygen Saturation 98% 08/06/2022 10: 57 AM TESTER ROCKET ENGINE Inhaled Oxygen Concentration - - Weight 74.8 kg (164 lb 12.8 oz) 10/09/2023 8:37 AM TESTER ROCKET ENGINE Height 175.3 cm (5' 9) 07/28/2022 3:31 PM TESTER ROCKET ENGINE Body Mass Index 24.34 07/28/2022 3:31 PM TESTER ROCKET ENGINE Plan of Treatment Health Maintenance Due Date Last Done Comments COVID-19 vaccine series (#1) 12/20/1964 Pneumococcal series for age 6-64 (1 of 2 - PCV) 12/20/1965 Depression screening for age 12+ 1971 HIV for age 15-65 12/20/1974 BMI (ht and wt on same day) for age 18+ 12/20/1977 Hepatitis C screening for age 18-79 12/20/1977 Zoster (shingles) series for age 50+ (1 of 2) 12/20/1978 Colonoscopy through age 75 12/20/2004 Lipids for age 45-75 12/20/2004 Tetanus booster 02/12/2021 02/12/2011, 04/28/2003 Influenza for age 50-64 05/08/2024 Tdap Completed 02/12/2011 Advance Directives * Full Code (Latest Code Status on File) Date Activated Date Inactivated Comments 07/25/2022 5:57 PM 08/01/2022 5:46 PM Question Answer Comments Code Status Discussion: Reviewed Preferences Care Teams Laundromat Manager Relationship Specialty Start Date End Date Sugey Washington MD [address] [place] [address] PCP - General 08/27/23
--- OUTSIDE RECORDS SUMMARY | 2023-12-15 06:19 | XMS_ITS | Encounter Summary ---
Author Name Unknown Organization [facility] Address [address] [facility] [address] [place] [address] Care Team Providers Care Housekeeping Department Worker Name Role Phone Unavailable Primary Care Provider Unavailabl e Encounter Details Date Type Department Care Team Description 10/15/2023 Orders Only [facility] [place] [address] [place] [address] Elfego Mcnamara MD [address] [place] [address] Social History Tobacco Use Types [...] Priority Date/Time Associated Diagnosis Comments HEMATOLOGY Routine 10/15/2023 documented in this encounter Results * (ABNORMAL) HEMATOLOGY (10/15/2023) Hemoglobin 12.1(L) 14.0 - 18.0 g/dL [facility] Hemoglobin x 3 36.3(L) 42.0 - 54.0 % [facility] 10/15/2023 10/16/2023 1:3 7 PM SWIMMING POOL INSTALLER Narrative [facility] - 10/16/2023 Unless otherwise specified, test(s) performed at: [facility], [address] [place] [address], [place] [address] INDUSTRIAL THERAPIST: Ramírez Jackman M.D., Ph.D For any questions, please call customer service at FREQUENCY:OTHER Resulting Agency Comment Specimen source: Blood Elfego Mcnamara MD LAB BLOOD ORDERABLES [facility] documented in this encounter Visit Diagnoses Not on filedocumented in this encounter
--- OUTSIDE RECORDS SUMMARY | 2023-12-15 06:19 | XMS_ITS | Encounter Summary ---
Author Name Unknown Organization [facility] [place] Address [address] [place] [address] Care Team Providers Care Tax Specialist Name Role Phone Unavailable Primary Care Provider Unavailabl e Encounter Details Date Type Department Care Team Description 12/08/2023 Treatment [facility] [place] [address] [place] [address] Elfego Mcnamara MD [address] [facility] [address] [place] [address] Social History Tobacco Use Types Packs/Day Years Used Date Smoking Tobacco: Never Assessed Sex and Gender Information Value Date Recorded Sex Assigned at Not on file Gender Identity Not on file Sexual Orientation Not on file documented as of this encounter Miscellaneous Notes * Dialysis Note - Elfego Mcnamara MD - 12/08/2023 8:41 AM CDT Date: Dec 08, 2023 Patient Name: Rickie Broderick : 1960 Chart #: [id number] Sex: M This patient was personally seen for a complete visit as part of routine monthly dialysis care. A review of the dialysis treatment, blood pressure, estimated dry weight and recent lab values was made. These were discussed with the patient and staff as necessary. Treatment Data for 12/08/2023 started at:6:12 AM Dialyzer: 180NRe Optiflux Na: 138 mEq/L Bicarb: 39 mEq/L Dialysate: 2.0 K, 2.5 Ca, 1.0 Mg, 100 Dextrose (G2251) Dialysate/Machine Temp (prescribed): 37 C Dialysate/Machine Temp (actual): 36.5 C BFR (prescribed): 400 BFR (actual): 300 Prescribed time: 03:30 EDW: 71.9 kg Access Type: Active (In Use):CVCatheter-Tunneled/Chest Pre Dialysis Vitals (for 12/08/2023 5:16 AM ) Pre BP (sit): 137/84 Pre Wt: 73 kg Temp: 97.7 F Post Dialysis Vitals (for 12/01/2023 8:35 AM ) Post BP (sit): 101/63 Post Wt: 72.8 kg Current Dialysis Vitals (for 12/08/2023 8:30 AM ) BP (sit): 120/86 AP(-) / ECHO TECHNICIAN: 244/116 Pulse: 86 Chairside data as of 12/08/2023 8:30 AM Last 3 Treatments 12/05/2023 (Absent) 12/01/2023 11/28/2023 (Absent) EDW (kg) 71.9 Weight Pre (kg) 75.6 Weight Post (kg) 72.8 Dialytic Weight Loss (kg) -2.8 EDW Deviation (kg) 0.9 BP Sit Pre 147/94 BP Sit Post 101/63 UF Rate (mL/kg/hr) 13 Prescribed BFR 400 Average Delivered BFR 400 Prescribed Treatment Time 03:00 Actual Treatment Time 02:59 WASTE MACHINE OPERATOR: Elfego Mcnamaar MD LOCATION: [phone] SCHEDULE: 1st Shift EDW: kg. DIALYZER: HD DURATION: NEEDLE SIZE: ANTICOAG: BATH: QB: ml/min QD: ml/min Subjective 12/08/23: I changed him to 2x/wk but increased time to 3.5 hrs last week. long discussion at chairside today about what that means and that it may not be adequate without increasing time more. Weekly labs pending today. Again discussed access placement and he is eligible for an AVF although was told by [facility] that an AVG is better so he continues to focus on that. Went over AVF vs AVg patency data, I rec AVF. He completes his chemo in February and has a f/u BMBX then, to see if MM cured. He will then need a waiting period before could be transplanted. No sob, cp, N/V. 11/10/23: Saw a of [facility] for a second opinion about whether he needs HD. Turning in a24 hr urine today. Was told maybe I will only need 2x/wk and that I should get an AVG even if I could get an AVF. I don't have those notes, but look forward to discussing those results and merits of best access. No SOB or CP. 10/20/23: Had appt at [facility] last week, see that note. will need to be CA - free, still getting chemo 1x/mo on last of month and tolerating it. HD going well. no SOB or CP. Still hasn't set uphis AVF surgery, but we discussed this and he will. 09/10/23: Feels well, has gained wt. continues MAB Rx monthly for MM and this finishes February and repeat BMBx then. Has appt for [facility] (pt requested second opinion) since turned down at [facility]. TThim today, with MM he is not a candidate. Also has a second opinion at of 10/15/23 for his MM andESRD dxs. Likes TTS better, less conflict with work schedule. 08/21/23: feels well. no SOB or CP. AVF pushed to September. 07/20/23: Feels well. having his AVF surgery tomorrow at [facility]. no SOB or CP. 06/15/23: Feels well. long discussion about AVF and he is now willing to get it done. no SOB or CP. 03/16/23: Feels fine. completes chemo 03/31/23. Long discussion about arm access and is willing togo for vein map and surgeon consult to [facility] and potentially get it scheduled after chemo completes.No SOB or CP. 03/02/23: Feels fine, moved to first shirt. No SOB or CP. 01/19/23: Feels well. has a BMBx at [facility] 02/10/23. No HD issues. no sob. stable wt. good uop. 12/22/22: Seen with TOBI Vang. I independently reviewed, assessed and examined this pt and made the A/P with Ciera. See below for details. 12/10/22: Seen with Ciera, TOBI. I independently reviewed, assessed and examined this pt and made the A/P with Ciera. See below for details 11/24/22: Feels fine today. has appt at [facility] tomorrow regarding MM Rx and considering possible BMTxp. Still getting chemo weekly on . Is NOT interested in home dialysis after thinking about itmore. Has appt for AVF creation 12/04/22 at [facility]. 11/05/22: We converted him from ELAINA-D to ESRD on 11/03/22. Feels fine today. no new issues. see ELAINA note from 10/31/22 for other details. No SOB or CP Advanced Practitioner Subjective ARROW POINT ATTACHER 02/11/2023: Spoke with patient on dialysis. Doing well. Denies SOB, chest pain, cramping or dizziness. Leaving below EDW. BP stable. PCAD functional. ARROW POINT ATTACHER 12/22/22: Patient seen on HD, denies SOB, chest pain, or dizziness. Denies cramping. He is open to seeing [facility] for vein mapping in preparation for AVF. Doing well otherwise. ARROW POINT ATTACHER 12/10/22: Patient seen on HD. He has an appt with [facility] tomorrow for iothalamate clearance testing.Tolerating dialysis, denies [...] - No leg edema. Access - PCAD 350 BF despite tPA, no redness 12/08/23: Needs AVF placed DAVID BUSH 10/20/23: needs to schedule AVF DAVID BUSH 09/10/23: AVF planned at [facility] later in Sep. Medication List Medication Sig [...] made. Treatment and Adequacy Assessment BUN mg/dL 44 (11/26/23) 62 (10/08/23) 38 (09/10/23) 59 (08/14/23) 60 (08/10/23) UREA NITROGEN (MG/DL) IN SER/PLAS - POST DIALYSIS mg/dL 13 (11/26/23) 16 (10/08/23) 10 (09/10/23) 15 (08/14/23) 23 (08/10/23) URR % 70 (11/26/23) 74 (10/08/23) 74 (09/10/23) 75 (08/14/23) 62 (08/10/23) spKt/V Gotch 1.5 (11/26/23) 1.62 (10/08/23) 1.6 (09/10/23) 1.69 (08/14/23) 1.16 (08/10/23) eKdrt/V 1.23 (11/26/23) 1.34 (10/08/23) 1.31 (09/10/23) 1.39 (08/14/23) .78 (08/10/23) spKt/V (Daugirdas II) 1.4500 (11/26/23) 1.5700 (10/08/23) 1.5500 (09/10/23) 1.6100 (08/14/23) 1.0900 (08/10/23) Dialysis is adequate. Achieves prescribed time - Yes Achieves prescribed frequency - Yes Missed treatments in past 30 days - 0 Continue current prescription. 12/08/23: his residual Kt/V from his 24 hr Clurea= 5x 10.08/((0.6) x71.9)= residual Kt/V= 1.16. 11/10/23: await 24 hr urine to see his residual Kt/V. 11/24/22: adequated despite using a PCAD. has some RRF. Vascular Access Assessment Type of access: Catheter Surgeon - PCAD at [facility] IR--> [facility] Staff and patient report access is working well. Send to Surgeon for access creation. 12/08/23: moy arm access DAVID, again discussed risks of continuing with PCAD 11/10/23: I was told he is eligible for an AVF. I would NOT want an AVG if could get an AVF but will confer with [facility] surgery. 10/20/23: he had put off AVF due to txp w/u but has CA and turned down at [facility] and [facility] so needsto get AVF DAVID MD 07/20/23: AVF creation 07/21/23 at [facility] 06/15/23: willing to go for vein mapping and consult, then creation DAVID 03/16/23: willing to go for vein mapping and consult, then creation after chemo finishes. 03/02/23: needs access creation 11/05/22: has appt at [facility] 12/04/22 Anemia Assessment HEMOGLOBIN (G/DL) IN BLOOD g/dL 11.3 (11/26/23) 10.9 (11/19/23) 11.4 (11/12/23) 11.3 (11/05/23) 11.7 (10/29/23) PLATELETS 1000/mcL 231 (11/26/23) 196 (10/08/23) 178 (09/10/23) 197 (08/10/23) 188 (08/07/23) FERRITIN ng/mL 747 (08/10/23) 686 (08/07/23) 1070 (05/27/23) 558 (03/30/23) 754 (12/26/22) TRANSFERRIN SAT% % 26 (11/26/23) 25 (10/08/23) 29 (09/10/23) 37 (08/10/23) 72 (08/07/23) Hemoglobin is above goal. Iron Saturation is at goal. Ferritin is at goal. Will adjust NORMA and intravenous iron per protocol. 01/19/23: BMBx at [facility] 02/10/23 planned for Myeloma f/u. not on EPO Nutritional and Metabolic Assessment ALBUMIN (G/DL) g/dL 4.6 (11/26/23) 4.0 (10/08/23) 4.4 (09/10/23) 4.1 (08/10/23) 4.4 (08/07/23) Sodium mEq/L 137 (11/26/23) 138 (10/08/23) 137 (09/10/23) 135 (08/10/23) 135 (08/07/23) POTASSIUM (MMOL/L) IN SER/PLAS mEq/L 4.6 (11/26/23) 5.2 (10/08/23) 5.1 (09/10/23) 4.3 (08/10/23) 4.3 (08/07/23) BICARBONATE (CO2) mEq/L 24 (11/26/23) 17 (10/08/23) 20 (09/10/23) 22 (08/10/23) 21 (08/07/23) 25 OH VITAMIN D ng/mL 42.0 (08/07/23) 25.1 (05/27/23) Albumin is at goal. Potassium is at goal. Bicarbonate is below goal. Increase bicarbonate in dialysate. Bone and Mineral Metabolism Assessment CALCIUM mg/dL 9.6 (11/26/23) 8.5 (10/08/23) 9.2 (09/10/23) 8.9 (08/10/23) 9.5 (08/07/23) CALCIUM (MG/DL) CORRECTED FOR ALBUMIN IN SER/PLAS mg/dL 9.1 (11/26/23) 8.5 (10/08/23) 8.9 (09/10/23) 8.8 (08/10/23) 9.2 (08/07/23) PHOSPHATE (MG/DL) IN SER/PLAS mg/dL 4.8 (11/26/23) 5.5 (10/08/23) 4.7 (09/10/23) 4.0 (08/10/23) 3.4 (08/07/23) CALCIUM PHOSPHORUS PRODUCT, COR 44 (11/26/23) 47 (10/08/23) 42 (09/10/23) 35 (08/10/23) 31 (08/07/23) IPTH pg/mL 319 (09/10/23) 267 (08/10/23) 144 (08/07/23) 364 (06/29/23) 430 (05/27/23) Corrected Calcium is at goal. Phosphorous is at goal. Ca X P product is at goal. Intact PTH is at goal. Carpenter Repair will adjust binders and vitamin D per protocol and continue to provide dietary education. Cardiovascular Assessment Blood pressures reviewed and are acceptable. Intradialytic weight gains are appropriate. Estimated dry weight is appropriate. 12/08/23: 71.9 06/15/23: EDW 70 is stable ARROW POINT ATTACHER 02/11/2023: EDW decreased to 69 kg Transplant Status: Patient has been referred. [facility] for BMT first 12/08/23: still on chemo Rx. BMbx next in February 10/20/23: turned down at [facility]. wanted a 2nd opinion at [facility] and went last week. as expected, not acandidate with MM Resuscitation Status Discussed with patient who requested Full Code. Elfego Mcnamara MD [ Signed And locked electronically On 12/08/2023 at 08:52:32 AM ] Transcribed: Elfego Mcnamara ( 12/08/2023 ) documented in this encounter Plan of Treatment Not on file documented as of this encounter Visit Diagnoses Not on filedocumented in this encounter
--- OUTSIDE RECORDS SUMMARY | 2023-12-15 06:19 | XMS_ITS | Encounter Summary ---
Author Name Unknown Organization [facility] Address [address] [place] [address] Care Team Providers Care Passenger Car Conductor Name Role Phone Unavailable Primary Care Provider Unavailabl e Encounter Details Date Type Department Care Team Description 09/10/2023 Orders Only [facility] [address] [place] [address] Elfego Mcnamara MD [address] [place] [address] Social History Tobacco Use Types [...] Date/Time Associated Diagnosis Comments HD KINETICS Routine 09/10/2023 POST CHEMISTRY Routine 09/10/2023 IMMUNO CHEMISTRY Routine 09/10/2023 HEMATOLOGY Routine 09/10/2023 CHEMISTRY Routine 09/10/2023 CHEMISTRY Routine 09/10/2023 [facility] LAB RESULTS Routine 09/10/2023 documented in this encounter Results * [facility] Lab Results (09/10/2023) eKt/V Gotch 1.31 ISABEL spKt/V (Daugirdas II) 1.55 ISABEL eKt/V ([place]) 1.30 [facility]EL eNPCR 0.68 ISABEL spKt/V Gotch 1.60 ISABEL nPCR_HD 0.78 ISABEL WSTDKT/V 2.4 [facility]ABEL PCR 35.89 [facility] eKdrt/V 1.31 [facility] 09/10/2023 09/10/2023 Isabel Ordering Provider LAB BLOOD ORDERABLE S Performing Organization Address [facility] de Phone Number ISABEL * HD KINETICS (09/10/2023) % Urea Reduction 74 65 - 80 % [facility] 09/10/2023 09/11/2023 8:5 9 PM AFTER SCHOOL COUNSELOR Narrative Resulting Agency Comment Specimen source: Plasma Elfego Mcnamara MD LAB BLOOD ORDERABLES Performing Organization Address [facility] de Phone Number [facility] * POST CHEMISTRY (09/10/2023) BUN Post Dialysis 10 6 - 19 mg/dL [facility] 09/10/2023 09/11/2023 8:5 9 PM AFTER SCHOOL COUNSELOR Narrative [facility] - 09/11/2023 Unless otherwise specified, test(s) performed at: [facility], [address] [place] [address], [place] [address] APPLIQUE CUTTER: Ramírez Jackman M.D., Ph.D For any questions, please call customer service at FREQUENCY:MONTHLY Resulting Agency Comment Specimen source: Plasma Elfego Mcnamara MD LAB BLOOD ORDERABLES Performing Organization Address [facility] de Phone Number [facility] * (ABNORMAL) [facility] Chemistry (09/10/2023) BUN 38(H) 6 - 19 mg/dL [facility] Creatinine 6.20(H) 0.60 - 1.30 mg/dL [facility] BUN/Creatinine Ratio 6.1(L) 10.0 - 20.0 [facility] Sodium 137 136 - 145 mEq/L [facility] Potassium 5.1 3.5 - 5.1 mEq/L [facility] Chloride 106 96 - 108 mEq/L [facility] Bicarbonate (CO2) 20 20 - 31 mEq/L [facility] Calcium 9.2 8.7 - 10.4 mg/dL [facility] Comment: Please note change in reference range. Corrected Calcium 8.9 8.7 - 10.4 mg/dL [facility] Comment: Corrected Calcium is not equivalent to measured Ionized Calcium. Phosphorus 4.7(H) 2.6 - 4.5 mg/dL [facility] Calcium Phosphorus Product 43 0 - 54 [facility] Calcium Phosporus Product, Cor 42 0 - 54 [facility] Total Protein 5.8(L) 6.0 - 8.5 g/dL [facility] Albumin 4.4 3.5 - 5.2 g/dL [facility] Globulin, Total 1.4(L) 2.0 - 4.0 g/dL [facility] A/G Ratio 3.1(H) 1.0 - 2.0 [facility] A [facility] Iron 80 45 - 160 mcg/dL [facility] UIBC 199 155 - 355 mcg/dL [facility] TIBC 279 185 - 515 mcg/dL [facility] Iron Saturation (TSat) 29 20 - 55 % [facility] 09/10/2023 09/11/2023 1:2 7 PM AFTER SCHOOL COUNSELOR Narrative [facility] - 09/11/2023 Unless otherwise specified, test(s) performed at: [facility], [address] [place] [address], [place] [address] APPLIQUE CUTTER: Ramírez Jackman M.D., Ph.D For any questions, please call customer service at FREQUENCY:MONTHLY Resulting Agency Comment Specimen source: Serum Elfego Mcnamara MD LAB BLOOD ORDERABLES [facility] * (ABNORMAL) HEMATOLOGY (09/10/2023) WBC 3.05(L) 4.80 - 10.80 1000/mcL [facility] RBC 2.96(L) 4.70 - 6.10 mill/mcL [facility] Hematocrit 32.5(L) 42.0 - 52.0 % [facility] MCV 110(H) 80 - 100 fl [facility] MCH 37.7(H) 27.0 - 31.0 pg [facility] MCHC 34.4 30.0 - 36.0 g/dL [facility] RDW 14.0 11.5 - 14.5 % [facility] Hemoglobin 11.2(L) 14.0 - 18.0 g/dL [facility] Hemoglobin x 3 33.6(L) 42.0 - 54.0 % [facility] Platelets 178 130 - 400 1000/mcL [facility] 09/10/2023 09/11/2023 11: 45 AM AFTER SCHOOL COUNSELOR Narrative [facility] - 09/11/2023 Unless otherwise specified, test(s) performed at: [facility], [address] [place] [address], [place] [address] APPLIQUE CUTTER: Ramírez Jackman M.D., Ph.D For any questions, please call customer service at FREQUENCY:MONTHLY Resulting Agency Comment Specimen source: Blood Elfego Mcnamara MD LAB BLOOD ORDERABLES [facility] * IMMUNO CHEMISTRY (09/10/2023) Hep B Surface Ag Negative Negative APS [...] methods or kits cannot be used interchangeably. 09/10/2023 09/11/2023 12: 04 PM AFTER SCHOOL COUNSELOR Narrative Resulting Agency Comment Specimen source: Plasma Elfego Mcnamara MD LAB BLOOD ORDERABLES Performing Organization Address [facility] Co de Phone Number [facility] * (ABNORMAL) [facility] Chemistry (09/10/2023) PTH 319(H) 16 - 80 pg/mL [facility] 09/10/2023 09/11/2023 12: 04 PM AFTER SCHOOL COUNSELOR Narrative [facility] - 09/11/2023 Unless otherwise specified, test(s) performed at: [facility], [address] [place] [address], [place] [address] APPLIQUE CUTTER: Ramírez Jackman M.D., Ph.D For any questions, please call customer service at FREQUENCY:MONTHLY Resulting Agency Comment Specimen source: Plasma Elfego Mcnamara MD LAB BLOOD ORDERABLES Performing Organization Address [facility] Co de Phone Number [facility] documented in this encounter Visit Diagnoses Not on filedocumented in this encounter
--- OUTSIDE RECORDS SUMMARY | 2023-12-15 06:19 | XMS_ITS | Encounter Summary ---
Author Name Unknown Organization [facility] Address [address] [facility] [address] [place] [address] Care Team Providers Care Nremt Name Role Phone Unavailable Primary Care Provider Unavailabl e Encounter Details Date Type Department Care Team Description 09/24/2023 Orders Only [facility] [address] [place] [address] Elfego Mcnamara MD [address] [place] [address] Social History Tobacco Use Types [...] Priority Date/Time Associated Diagnosis Comments HEMATOLOGY Routine 09/24/2023 documented in this encounter Results * (ABNORMAL) HEMATOLOGY (09/24/2023) Hemoglobin 11.8(L) 14.0 - 18.0 g/dL [facility] Hemoglobin x 3 35.4(L) 42.0 - 54.0 % [facility] 09/24/2023 09/27/2023 12: 47 PM PLATE STACKER HAND Narrative [facility] - 09/27/2023 Unless otherwise specified, test(s) performed at: [facility], [address] [place] [address], [place] [address] BUS MECHANIC: Ramírez Jackman M.D., Ph.D For any questions, please call customer service at FREQUENCY:OTHER Resulting Agency Comment Specimen source: Blood Elfego Mcnamara MD LAB BLOOD ORDERABLES [facility] documented in this encounter Visit Diagnoses Not on filedocumented in this encounter
--- OUTSIDE RECORDS SUMMARY | 2023-12-15 06:19 | XMS_ITS | Encounter Summary ---
Author Name Unknown Organization [facility] [place] Address [address] [place] [address] Care Team Providers Care Dimension Specification Inspector Name Role Phone Unavailable Primary Care Provider Unavailabl e Encounter Details Date Type Department Care Team Description 10/20/2023 Treatment [facility] [place] [address] [place] [address] Elfego Mcnamara MD [address] [facility] [address] [place] [address] Social History Tobacco Use Types Packs/Day Years Used Date Smoking Tobacco: Never Assessed Sex and Gender Information Value Date Recorded Sex Assigned at Not on file Gender Identity Not on file Sexual Orientation Not on file documented as of this encounter Miscellaneous Notes * Dialysis Note - Elfego Mcnamara MD - 10/20/2023 9:47 AM CST Date: Oct 20, 2023 Patient Name: Rickie Broderick : 1960 Chart #: [id number] Sex: M This patient was personally seen for a complete visit as part of routine monthly dialysis care. A review of the dialysis treatment, blood pressure, estimated dry weight and recent lab values was made. These were discussed with the patient and staff as necessary. Treatment Data for 10/20/2023 started at:5:25 AM Dialyzer: Na: 138 mEq/L Bicarb: 39 mEq/L Dialysate: Dialysate/Machine Temp (prescribed): 37 C Dialysate/Machine Temp (actual): n/a BFR (prescribed): 400 BFR (actual): 0 Prescribed time: 03:00 EDW: 71.9 kg Access Type: Active (In Use):CVCatheter-Tunneled/Chest Pre Dialysis Vitals (for 10/20/2023 5:21 AM ) Pre BP (sit): 137/75 Pre Wt: 75 kg Temp: 98.4 F Post Dialysis Vitals (for 10/17/2023 7:28 AM ) Post BP (sit): 123/77 Post Wt: 71.9 kg Current Dialysis Vitals (for 10/20/2023 8:29 AM ) BP (sit): 98/59 AP(-) / INSIDE BARREL LATHE OPERATOR: 35/13 Pulse: 80 Chairside data as of 10/20/2023 8:29 AM Last 3 Treatments 10/17/2023 10/15/2023 10/13/2023 EDW (kg) 71.9 71.9 71.9 Weight Pre (kg) 73.4 74.8 75.5 Weight Post (kg) 71.9 71.9 72.6 Dialytic Weight Loss (kg) -1.5 -2.9 -2.9 EDW Deviation (kg) 0.0 0.0 0.7 BP Sit Pre 135/71 116/66 142/77 BP Sit Post 123/77 109/63 124/80 UF Rate (mL/kg/hr) 10 13 13 Prescribed BFR 400 400 400 Average Delivered BFR 400 400 400 Prescribed Treatment Time 03:00 03:00 03:00 Actual Treatment Time 02:01 03:01 03:00 Treatment Medication Orders Medication Sig Start Date End Date Heparin Sodium (Porcine) 1,000 Units/mL Catheter Lock Arterial 1800 units Arterial Red Port Every Treatment Post Dialysis 09/10/2023 09/08/2024 Heparin Sodium (Porcine) 1,000 Units/mL Catheter Lock Venous 1800 units Venous Blue Port Every Treatment Post Dialysis 09/10/2023 09/08/2024 Heparin Sodium (Porcine) 1,000 Units/mL Systemic 2000 units IVP Every Treatment 09/10/2023 09/08/2024 Vitamin D (Calcitriol) Oral 0.50 mcg ORAL 3X Week 09/12/2023 09/10/2024 AUTO HEADLIGHT MECHANIC: Elfego Mcnamara MD LOCATION: [phone] SCHEDULE: 1st Shift EDW: kg. DIALYZER: HD DURATION: NEEDLE SIZE: ANTICOAG: BATH: QB: ml/min QD: ml/min Subjective 10/20/23: Had appt at [facility] last week, see that note. will need [...] requested second opinion) since turned down at [facility]. TThim today, with MM he is not a candidate. Also has a second opinion at [facility] 10/15/23 for his MM andESRD dxs. Likes TTS better, less conflict with work schedule. 08/21/23: feels well. no SOB or CP. AVF pushed to September. 07/20/23: Feels well. having his AVF surgery tomorrow at [facility]. no SOB or CP. 06/15/23: Feels well. long discussion about AVF and he is now willing to get it done. no SOB or CP. 03/16/23: Feels fine. completes chemo 03/31/23. Long discussion about arm access and is willing togo for vein map and surgeon consult to [facility] and potentially get it scheduled after chemo completes.No SOB or CP. 03/02/23: Feels fine, moved to first shirt. No SOB or CP. 01/19/23: Feels well. has a BMBx at [facility] 02/10/23. No HD issues. no sob. stable wt. good uop. 12/22/22: Seen with Ciera, TOBI. I independently reviewed, assessed and examined this pt and made the A/P with Ciera. See below for details. 12/10/22: Seen with Ciera, TOBI. I independently reviewed, assessed and examined this pt and made the A/P with Ciera. See below for details 11/24/22: Feels fine today. has appt at [facility] tomorrow regarding MM Rx and considering possible BMTxp. Still getting chemo weekly on . Is NOT interested in home dialysis after thinking about itmore. Has appt for AVF creation 12/04/22 at [facility]. 11/05/22: We converted him from ELAINA-D to ESRD on 11/03/22. Feels fine today. no new issues. see ELAINA note from 10/31/22 for other details. No SOB or CP Advanced Practitioner Subjective CARBON PASTE MIXER OPERATOR 02/11/2023: Spoke with patient on dialysis. Doing well. Denies SOB, chest pain, cramping or dizziness. Leaving below EDW. BP stable. PCAD functional. CARBON PASTE MIXER OPERATOR 12/22/22: Patient seen on HD, denies SOB, chest pain, or dizziness. Denies cramping. He is open to seeing [facility] for vein mapping in preparation for AVF. Doing well otherwise. CARBON PASTE MIXER OPERATOR 12/10/22: Patient seen on HD. He has an appt with [facility] tomorrow for iothalamate clearance testing.Tolerating dialysis, denies [...] Access - PCAD working well, no redness 10/20/23: needs to schedule AVF [facility] BUSH 09/10/23: AVF planned at [facility] later in Sep. Medication List Medication Sig [...] made. Treatment and Adequacy Assessment BUN mg/dL 62 (10/08/23) 38 (09/10/23) 59 (08/14/23) 60 (08/10/23) 68 (06/29/23) UREA NITROGEN (MG/DL) IN SER/PLAS - POST DIALYSIS mg/dL 16 (10/08/23) 10 (09/10/23) 15 (08/14/23) 23 (08/10/23) 15 (06/29/23) URR % 74 (10/08/23) 74 (09/10/23) 75 (08/14/23) 62 (08/10/23) 78 (06/29/23) spKt/V Gotch 1.62 (10/08/23) 1.6 (09/10/23) 1.69 (08/14/23) 1.16 (08/10/23) 1.72 (06/29/23) eKdrt/V 1.34 (10/08/23) 1.31 (09/10/23) 1.39 (08/14/23) .78 (08/10/23) 1.41 (06/29/23) spKt/V (Daugirdas II) 1.5700 (10/08/23) 1.5500 (09/10/23) 1.6100 (08/14/23) 1.0900 (08/10/23) 1.7100 (06/29/23) Dialysis is adequate. Achieves prescribed time - Yes Achieves prescribed frequency - Yes Missed treatments in past 30 days - 0 Continue current prescription. 11/24/22: adequated despite using a PCAD. has some RRF. Vascular Access Assessment Type of access: Catheter Surgeon - PCAD at [facility] IR--> [facility] Staff and patient report access is working well. Send to Surgeon for access creation. 10/20/23: he had put off AVF due to txp w/u but has CA and turned down at [facility] and [facility] so needsto get AVF DAVID BUSH 07/20/23: AVF creation 07/21/23 at [facility] 06/15/23: willing to go for vein mapping and consult, then creation [facility] BUSH 03/16/23: willing to go for vein mapping and consult, then creation after chemo finishes. 03/02/23: needs access creation 11/05/22: has appt at [facility] 12/04/22 Anemia Assessment HEMOGLOBIN (G/DL) IN BLOOD g/dL 12.1 (10/15/23) 13.2 (10/08/23) 12.4 (10/01/23) 11.8 (09/24/23) 11.2 (09/10/23) PLATELETS 1000/mcL 196 (10/08/23) 178 (09/10/23) 197 (08/10/23) 188 (08/07/23) 178 (06/29/23) FERRITIN ng/mL 747 (08/10/23) 686 (08/07/23) 1070 (05/27/23) 558 (03/30/23) 754 (12/26/22) TRANSFERRIN SAT% % 25 (10/08/23) 29 (09/10/23) 37 (08/10/23) 72 (08/07/23) 41 (06/29/23) Hemoglobin is above goal. Iron Saturation is at goal. Ferritin is at goal. Will adjust NORMA and intravenous iron per protocol. 01/19/23: BMBx at [facility] 02/10/23 planned for Myeloma f/u. not on EPO Nutritional and Metabolic Assessment ALBUMIN (G/DL) g/dL 4.0 (10/08/23) 4.4 (09/10/23) 4.1 (08/10/23) 4.4 (08/07/23) 4.4 (06/29/23) Sodium mEq/L 138 (10/08/23) 137 (09/10/23) 135 (08/10/23) 135 (08/07/23) 137 (06/29/23) POTASSIUM (MMOL/L) IN SER/PLAS mEq/L 5.2 (10/08/23) 5.1 (09/10/23) 4.3 (08/10/23) 4.3 (08/07/23) 5.1 (06/29/23) BICARBONATE (CO2) mEq/L 17 (10/08/23) 20 (09/10/23) 22 (08/10/23) 21 (08/07/23) 19 (06/29/23) 25 OH VITAMIN D ng/mL 42.0 (08/07/23) 25.1 (05/27/23) Albumin is at goal. Potassium is at goal. Bicarbonate is below goal. Increase bicarbonate in dialysate. Bone and Mineral Metabolism Assessment CALCIUM mg/dL 8.5 (10/08/23) 9.2 (09/10/23) 8.9 (08/10/23) 9.5 (08/07/23) 8.7 (06/29/23) CALCIUM (MG/DL) CORRECTED FOR ALBUMIN IN SER/PLAS mg/dL 8.5 (10/08/23) 8.9 (09/10/23) 8.8 (08/10/23) 9.2 (08/07/23) 8.4 (06/29/23) PHOSPHATE (MG/DL) IN SER/PLAS mg/dL 5.5 (10/08/23) 4.7 (09/10/23) 4.0 (08/10/23) 3.4 (08/07/23) 4.2 (06/29/23) CALCIUM PHOSPHORUS PRODUCT, COR 47 (10/08/23) 42 (09/10/23) 35 (08/10/23) 31 (08/07/23) 35 (06/29/23) IPTH pg/mL 319 (09/10/23) 267 (08/10/23) 144 (08/07/23) 364 (06/29/23) 430 (05/27/23) Corrected Calcium is at goal. Phosphorous is at goal. Ca X P product is at goal. Intact PTH is at goal. Dynamite Reclaimer will adjust binders and vitamin D per protocol and continue to provide dietary education. Cardiovascular Assessment Blood pressures reviewed and are acceptable. Intradialytic weight gains are appropriate. Estimated dry weight is appropriate. 06/15/23: EDW 70 is stable CARBON PASTE MIXER OPERATOR 02/11/2023: EDW decreased to 69 kg Transplant Status: Patient has been referred. [place] [facility] for BMT first MD 10/20/23: turned down at [facility]. wanted a 2nd opinion at [facility] and went last week. as expected, not acandidate with MM Resuscitation Status Discussed with patient who requested Full Code. Elfego Mcnamara MD [ Signed And locked electronically On 10/20/2023 at 09:51:10 AM ] Transcribed: Elfego Mcnamara ( 10/20/2023 ) documented in this encounter Plan of Treatment Not on file documented as of this encounter Visit Diagnoses Not on filedocumented in this encounter
--- OUTSIDE RECORDS SUMMARY | 2023-12-15 06:19 | XMS_ITS | Encounter Summary ---
Author Name Unknown Organization [facility] Address [address] [facility] [address] [place] [address] Care Team Providers Care College Sports Coach Name Role Phone Unavailable Primary Care Provider Unavailabl e Encounter Details Date Type Department Care Team Description 10/22/2023 Orders Only [facility] [place] [address] [place] [address] Elfego Mcnamara MD [address] [place] [address] Social History Tobacco Use Types [...] Priority Date/Time Associated Diagnosis Comments HEMATOLOGY Routine 10/22/2023 documented in this encounter Results * (ABNORMAL) HEMATOLOGY (10/22/2023) Hemoglobin 13.2(L) 14.0 - 18.0 g/dL [facility] Hemoglobin x 3 39.6(L) 42.0 - 54.0 % [facility] 10/22/2023 10/23/2023 4:2 3 AM HUMAN CAPITAL ANALYST Narrative [facility] - 10/23/2023 Unless otherwise specified, test(s) performed at: [facility], [address] [place] [address], [place] [address] CORRESPONDENCE SPECIALIST: Ramírez Jackman M.D., Ph.D For any questions, please call customer service at FREQUENCY:OTHER Resulting Agency Comment Specimen source: Blood Elfego Mcnamara MD LAB BLOOD ORDERABLES [facility] documented in this encounter Visit Diagnoses Not on filedocumented in this encounter
--- OUTSIDE RECORDS SUMMARY | 2023-12-15 06:19 | XMS_ITS | Encounter Summary ---
Author Name Unknown Organization [facility] Address [address] [facility] [address] [place] [address] Care Team Providers Care Bleacher Groundwood Pulp Name Role Phone Unavailable Primary Care Provider Unavailabl e Encounter Details Date Type Department Care Team Description 10/29/2023 Orders Only [facility] [place] [address] [place] [address] Elfego Mcnamara MD [address] [place] [address] Social History Tobacco Use Types [...] Priority Date/Time Associated Diagnosis Comments HEMATOLOGY Routine 10/29/2023 documented in this encounter Results * (ABNORMAL) HEMATOLOGY (10/29/2023) Hemoglobin 11.7(L) 14.0 - 18.0 g/dL [facility] Hemoglobin x 3 35.1(L) 42.0 - 54.0 % [facility] 10/29/2023 10/30/2023 7:3 1 AM JUNIOR FINANCIAL ANALYST Narrative [facility] - 10/30/2023 Unless otherwise specified, test(s) performed at: [facility], [address] [place] [address], [place] [address] ROOFER APPRENTICE: Ramírez Jackman M.D., Ph.D For any questions, please call customer service at FREQUENCY:OTHER Resulting Agency Comment Specimen source: Blood Elfego Mcnamara MD LAB BLOOD ORDERABLES [facility] documented in this encounter Visit Diagnoses Not on filedocumented in this encounter
--- OUTSIDE RECORDS SUMMARY | 2023-12-15 06:19 | XMS_ITS | Encounter Summary ---
Author Name Unknown Organization [facility] Address [address] [facility] [address] [place] [address] Care Team Providers Care Camelid Fiber Sorter Name Role Phone Unavailable Primary Care Provider Unavailabl e Encounter Details Date Type Department Care Team Description 12/08/2023 Orders Only [facility] [place] [address] [place] [address] Elfego Mcnamara MD [address] [place] [address] Social [...] Priority Date/Time Associated Diagnosis Comments HEMATOLOGY Routine 12/08/2023 CHEMISTRY Routine 12/08/2023 CHEMISTRY Routine 12/08/2023 documented in this encounter Results * (ABNORMAL) [facility] Chemistry (12/08/2023) BUN 58(H) 6 - 19 mg/dL [facility] [...] 12/08/2023 12/09/2023 2:2 1 AM CDT Narrative [facility] - 12/09/2023 Unless otherwise specified, test(s) performed at: [facility], [address] [place] [address], [place] [address] FIELD ACCOUNT DIRECTOR: Ramírez Jackman M.D., Ph.D For any questions, please call customer service at FREQUENCY:OTHER Resulting Agency Comment Specimen source: Serum Elfego Mcnamara MD LAB BLOOD ORDERABLES Performing Organization Address [facility] Co de Phone Number [facility] See order comments or contact performing lab Unknown, [place] * (ABNORMAL) HEMATOLOGY (12/08/2023) Hemoglobin 10.5(L) 14.0 - 18.0 g/dL [facility] Hemoglobin x 3 31.5(L) 42.0 - 54.0 % [facility] 12/08/2023 12/09/2023 2:2 1 AM CDT Narrative [facility] - 12/09/2023 Unless otherwise specified, test(s) performed at: [facility], [address] [place] [address], [place] [address] FIELD ACCOUNT DIRECTOR: Ramírez Jackman M.D., Ph.D For any questions, please call customer service at FREQUENCY:OTHER Resulting Agency Comment Specimen source: Blood Elfgeo Mcnamara MD LAB BLOOD ORDERABLES Performing Organization Address City/[facility]/ZIP Co de Phone Number [facility] See order comments or contact performing lab Unknown, [place] * (ABNORMAL) [facility] (12/08/2023) PTH 192(H) 16 - 80 pg/mL [facility] 12/08/2023 12/09/2023 2:2 1 AM CDT Narrative [facility] - 12/09/2023 Unless otherwise specified, test(s) performed at: [facility], [address] [place] [address], [place] [address] FIELD ACCOUNT DIRECTOR: Ramírez Jackman M.D., Ph.D For any questions, please call customer service at FREQUENCY:OTHER Resulting Agency Comment Specimen source: Plasma Elfego Mcnamara MD LAB BLOOD ORDERABLES [facility] See order comments or contact performing lab Unknown, [place] documented in this encounter Visit Diagnoses Not on filedocumented in this encounter
--- OUTSIDE RECORDS SUMMARY | 2023-12-15 06:19 | XMS_ITS | Encounter Summary ---
Author Name Unknown Organization [facility] Address [address] [place] [address] Care Team Providers Care Integrated Specialist Name Role Phone Unavailable Primary Care Provider Unavailabl e Encounter Details Date Type Department Care Team Description 11/10/2023 Treatment [facility] [address] [place] [address] Elfego Mcnamara MD [address] [place] [address] Social History Tobacco Use Types Packs/Day Years Used Date Smoking Tobacco: Never Assessed Sex and Gender Information Value Date Recorded Sex Assigned at Not on file Gender Identity Not on file Sexual Orientation Not on file documented as of this encounter Miscellaneous Notes * Dialysis Note - Elfego Mcnamara MD - 11/10/2023 6:09 PM CST Date: Nov 10, 2023 Patient Name: Rickie Broderick : 1960 Chart #: [id number] Sex: M This patient was personally seen for a complete visit as part of routine monthly dialysis care. A review of the dialysis treatment, blood pressure, estimated dry weight and recent lab values was made. These were discussed with the patient and staff as necessary. Treatment Medication Orders Medication Sig Start Date [...] 0.50 mcg ORAL 3X Week 09/12/2023 09/10/2024 SAFETY LEAD: Elfego Mcnamara MD LOCATION: [phone] SCHEDULE: 1st Shift EDW: kg. DIALYZER: HD DURATION: NEEDLE SIZE: ANTICOAG: BATH: QB: ml/min QD: ml/min Subjective 11/10/23: Saw a [facility] Employment Specialist for a second opinion about whether he needs HD. Turning in a24 hr urine today. Was told maybe I will only need 2x/wk and that I should get an AVG even if I could get an AVF. I don't have those notes, but look forward to discussing those results and merits of best access. No SOB or CP. 10/20/23: Had appt at [facility] last week, see that note. will [...] and repeat BMBx then. Has appt for [facility] (pt requested second opinion) since turned down at [facility]. TThim today, with MM he is not a candidate. Also has a second opinion at [facility] 10/15/23 for his MM andESRD dxs. Likes TTS better, less conflict with work schedule. 08/21/23: feels well. no SOB or CP. AVF pushed to September. 07/20/23: Feels well. having his [place] [facility] no SOB or CP. 06/15/23: Feels well. long discussion about AVF and he is now willing to get it done. no SOB or CP. 03/16/23: Feels fine. completes chemo 03/31/23. Long discussion about arm access and is willing togo for vein map and surgeon consult to [facility] and potentially get it scheduled after chemo completes.No SOB or CP. 03/02/23: Feels fine, moved to first shirt. No SOB or CP. 01/19/23: Feels well. has a BMBx at [facility] 02/10/23. No HD issues. no sob. stable wt. good uop. 12/22/22: Seen with Ciera, TOBI. I independently reviewed, assessed and examined this pt and made the A/P with Ciera. See below for details. 12/10/22: Seen with Ciera, TOBI. I independently reviewed, assessed and examined this pt and made the A/P with Ciera. See below for details 11/24/22: Feels fine today. has appt at [facility] tomorrow regarding MM Rx and considering possible BMTxp. Still getting chemo weekly on . Is NOT interested in home dialysis after thinking about itmore. Has appt for AVF creation 12/04/22 at [facility]. 11/05/22: We converted him from ELAINA-D to ESRD on 11/03/22. Feels fine today. no new issues. see ELAINA note from 10/31/22 for other details. No SOB or CP Advanced Practitioner Subjective PLATEN PRESS FEEDER 02/11/2023: Spoke with patient on dialysis. Doing well. Denies SOB, chest pain, cramping or dizziness. Leaving below EDW. BP stable. PCAD functional. PLATEN PRESS FEEDER 12/22/22: Patient seen on HD, denies SOB, chest pain, or dizziness. Denies cramping. He is open to seeing [facility] for vein mapping in preparation for AVF. Doing well otherwise. PLATEN PRESS FEEDER 12/10/22: Patient seen on HD. He has an appt with [facility] tomorrow for iothalamate clearance testing.Tolerating dialysis, denies [...] AVF DAVID BUSH 09/10/23: AVF planned at [facility] later in Sep. Medication List Medication Sig [...] 30 days - 0 Continue current prescription. 11/10/23: await 24 hr urine to see his residual Kt/V. 11/24/22: adequated despite using a PCAD. has some RRF. Vascular Access Assessment Type of access: Catheter Surgeon - PCAD at [facility] IR--> [facility] Staff and patient report access is working well. Send to Surgeon for access creation. 11/10/23: I was told he is eligible for an AVF. I would NOT want an AVG if could get an AVF but will confer with [facility] surgery. 10/20/23: he had put off AVF due to txp w/u but has CA and turned down at [facility] and [facility] so needsto get AVF DAVID 07/20/23: AVF creation 07/21/23 at [facility] 06/15/23: willing to go for vein mapping and consult, then creation DAVID 03/16/23: willing to go for vein mapping and consult, then creation after chemo finishes. 03/02/23: needs access creation 11/05/22: has appt at [facility] 12/04/22 Anemia Assessment HEMOGLOBIN (G/DL) IN BLOOD g/dL 11.3 (11/05/23) 11.7 (10/29/23) 13.2 (10/22/23) 12.1 (10/15/23) 13.2 (10/08/23) PLATELETS 1000/mcL 196 (10/08/23) 178 (09/10/23) 197 (08/10/23) 188 (08/07/23) 178 (06/29/23) FERRITIN ng/mL 747 (08/10/23) 686 (08/07/23) 1070 (05/27/23) 558 (03/30/23) 754 (12/26/22) TRANSFERRIN SAT% % 25 (10/08/23) 29 (09/10/23) 37 (08/10/23) 72 (08/07/23) 41 (06/29/23) Hemoglobin is above goal. Iron Saturation is at goal. Ferritin is at goal. Will adjust NORMA and intravenous iron per protocol. 01/19/23: BMBx at [facility] 02/10/23 planned for Myeloma f/u. not on EPO Nutritional and Metabolic Assessment ALBUMIN (G/DL) g/dL 4.0 (21/24) 4.4 (09/10/23) 4.1 (08/10/23) 4.4 (08/07/23) 4.4 [...] at goal. Intact PTH is at goal. Preschool Aide will adjust binders and vitamin D per protocol and continue to provide dietary education. Cardiovascular Assessment Blood pressures reviewed and are acceptable. Intradialytic weight gains are appropriate. Estimated dry weight is appropriate. 06/15/23: EDW 70 is stable PLATEN PRESS FEEDER 02/11/2023: EDW decreased to 69 kg Transplant Status: Patient has been referred. [facility] for BMT first MD 10/20/23: turned down at [facility]. wanted a 2nd opinion at [facility] and went last week. as expected, not acandidate with MM Resuscitation Status Discussed with patient who requested Full Code. Elfego Mcnamara MD [ Signed And locked electronically On 11/10/2023 at 06:13:02 PM ] Transcribed: Elfego Mcnamara ( 11/10/2023 ) documented in this encounter Plan of Treatment Not on file documented as of this encounter Visit Diagnoses Not on filedocumented in this encounter
--- NOTE | 2023-12-15 08:01 | W.ANESCHARGE ---
Anesthesia Charges Start Date/Time Anesthesia Start Date: 12/15/23 Anesthesia Start Time: 07:23 Stop Date/Time Anesthesia Stop Date: 12/15/23 Anesthesia Stop Time: 07:58
--- NOTE | 2023-12-15 09:16 | W.ANESCHARGE ---
Anesthesia Charges Start Date/Time Anesthesia Start Date: 12/15/23 Anesthesia Start Time: 07:23 Stop Date/Time Anesthesia Stop Date: 12/15/23 Anesthesia Stop Time: 07:58
== END 2023-12-15 06:15 | disposition home or self-care (01) ==
PROVIDERS: PCP Family Medicine; Visit Provider Surgery
DX: Z12.11 Encounter for screening for malignant neoplasm of colon (principal); K63.5 Polyp of colon
CPT/HCPCS: 00811; 45385; 88305; J2704

== ENCOUNTER 2025-06-27 11:45 | Outpatient (CLI) | payer MEDICARE, SELFPAY | END 2025-06-27 11:46 | disposition home or self-care (01) | PROVIDERS: PCP Family Medicine; Visit Provider Family Medicine | DX: C90.00 Multiple myeloma not having achieved remission (principal); D64.9 Anemia, unspecified; I10 Essential (primary) hypertension; N19 Unspecified kidney failure; R82.90 Unspecified abnormal findings in urine | CPT/HCPCS: 80048; 80076; 82043; 82570; 83735; 87086 ==